=== PATIENT | female | born 1965 | race Caucasian/White ===

== ENCOUNTER 2021-06-29 15:44 | Outpatient (REF) | payer MEDICAID, SELFPAY ==
--- NOTE | ~2021-06-29 | MM_ITS ---
EXAMINATION: MM SCREENING DIGITAL BREAST TOMOSYNTHESIS, BILATERAL CLINICAL INFORMATION: Screening. Asymptomatic. The lifetime risk of breast cancer based on the Tyrer-Cuzick Model is 10.8%. COMPARISON: Mammography: May 30, 2018 and June 23, 2016 as well as study of November 03, 2008 TECHNIQUE: Digital breast tomosynthesis is performed in both the craniocaudal and mediolateral oblique views along with computer-aided detection (CAD). Synthesized 2D images are generated from the tomosynthesis. FINDINGS: There are scattered areas of fibroglandular density (ACR BI-RADS breast composition Category b). There are no significant masses, abnormal calcifications, or other abnormalities. MM/MM tomosynthesis screening BI IMPRESSION: There are no significant changes from prior study. ASSESSMENT: BI-RADS 1: Negative RECOMMENDATION: Routine annual mammography screening. This patient's information was entered into a reminder system with a target due date for their next mammogram.
== END 2021-06-29 15:45 | disposition home or self-care (01) ==
LOC: HO.MAMMO 15:44
PROVIDERS: Visit Provider Internal Medicine
DX: Z12.31 Encounter for screening mammogram for malignant neoplasm of breast (principal)
CPT/HCPCS: 77063; 77067

== ENCOUNTER → 2021-09-05 14:07 | Outpatient (BNVA) | payer MEDICAID, SELFPAY | PROVIDERS: PCP Internal Medicine; Referring Provider Internal Medicine; Visit Provider Physician Assistant | DX: Z12.11 Encounter for screening for malignant neoplasm of colon (principal); R10.13 Epigastric pain | CPT/HCPCS: 99202 ==

== ENCOUNTER 2022-01-09 07:54 | Day surgery (SDC) | payer MEDICAID, SELFPAY ==
--- NOTE | 2022-01-06 12:31 | P.CONAN_ITS ---
Documented by User: Anay Hernandez NP 01/06/22 12:32 HPI - Anesthesia Eval Consult details Narrative: 56yo F for Colonoscopy PMFSH Active Problems Active Problems: All Active Problems (Updated 01/02/22 @ 15:21 by Rema Pena, RN) Encounter for screening colonoscopy (Acute) Dyspepsia (Acute) Past Medical History Medical History (Updated 01/02/22 @ 15:21 by Rema Pena, RN) Allergic rhinitis Anxiety Depression DM type 2 (diabetes mellitus, type 2) GERD (gastroesophageal reflux disease) HTN (hypertension) Hyperlipidemia Mild intermittent asthma Vitamin D deficiency Family History Family History (Updated 09/05/21 @ 14:50 by Aimee Bailey PA-C) Unknown No family history of colorectal cancer Social History Social History (Updated 09/05/21 @ 14:51 by Aimee Bailey PA-C) Household Members: Spouse Patient Tobacco Use Status: Never used Tobacco Advance Directives: No Advance Directives Information Provided: Yes Current occupational status: unemployed Meds Allergies Allergy/AdvReac Type Severity Reaction Status Date / Time penicillin V Allergy Mild Abdominal Verified 01/02/22 15:13 Pain lisinopril Allergy Unknown cough Verified 01/02/22 15:13 Home Medications Medication Instructions Recorded Confirmed Last Taken Type albuterol sulfate 90 mcg/actuation 2 puff PO Q4-6H PRN Wheezing 09/05/21 01/02/22 Unknown History aerosol inhaler (ProAir HFA) amlodipine 5 mg tablet 5 mg PO DAILY 09/05/21 01/02/22 Unknown History atorvastatin 40 mg tablet 40 mg PO DAILY 09/05/21 01/02/22 Unknown History cholecalciferol (vitamin D3) 50 50 mcg PO DAILY 09/05/21 01/02/22 Unknown History mcg (2,000 unit) capsule diclofenac sodium 1 % topical gel 2 g topical QID 09/05/21 01/02/22 Unknown History fexofenadine 60 mg tablet 60 mg PO BID 09/05/21 01/02/22 Unknown History fluticasone propionate 50 1 spray intranasal BID 09/05/21 01/02/22 Unknown History mcg/actuation nasal spray,suspension metformin 500 mg tablet 500 mg PO BID 09/05/21 01/02/22 Unknown History omeprazole 20 mg capsule,delayed 20 mg PO DAILY 09/05/21 01/02/22 Unknown History release phenylephrine 0.25 %-mineral oil [place] TID-QID 09/05/21 Unknown History 14 %-petrolatm 74.9 % rectal ointment (Hemorrhoidal(phenyleph-min oil-petrolat)) Exam Exam Date and Time: January 06, 2022 1231 Assessment and Plan Assessment Anesthesia Assessment: Chart Reviewed Documented by User: Dulce Merlos MD 01/09/22 08:29 [facility] Past Medical History Medical History (Updated 01/02/22 @ 15:21 by Rema Pena RN) Allergic rhinitis Anxiety Depression DM type 2 (diabetes mellitus, type 2) GERD (gastroesophageal reflux disease) HTN (hypertension) Hyperlipidemia Mild intermittent asthma Vitamin D deficiency Family History Family History (Updated 09/05/21 @ 14:50 by Aimee Bailey PA-C) Unknown No family history of colorectal cancer Family history of problems with anesthesia: No Surgical History History of Problems with Anesthesia: No Social History Social History (Updated 09/05/21 @ 14:51 by Aimee Bailey PA-C) Household Members: Spouse Patient Tobacco Use Status: Never used Tobacco Advance Directives: No Advance Directives Information Provided: Yes Current occupational status: unemployed Meds Allergies Allergy/AdvReac Type Severity Reaction Status Date / Time penicillin V Allergy Mild Abdominal Verified 01/02/22 15:13 Pain lisinopril Allergy Unknown cough Verified 01/02/22 15:13 Home Medications Medication Instructions Recorded Confirmed Last Taken Type albuterol sulfate 90 mcg/actuation 2 puff PO Q4-6H PRN Wheezing 09/05/21 01/02/22 Unknown History aerosol inhaler (ProAir HFA) amlodipine 5 mg tablet 5 mg PO DAILY 09/05/21 01/02/22 Unknown History atorvastatin 40 mg tablet 40 mg PO DAILY 09/05/21 01/02/22 Unknown History cholecalciferol (vitamin D3) 50 50 mcg PO DAILY 09/05/21 01/02/22 Unknown History mcg (2,000 unit) capsule diclofenac sodium 1 % topical gel 2 g topical QID 09/05/21 01/02/22 Unknown History fexofenadine 60 mg tablet 60 mg PO BID 09/05/21 01/02/22 Unknown History fluticasone propionate 50 1 spray intranasal BID 09/05/21 01/02/22 Unknown History mcg/actuation nasal spray,suspension metformin 500 mg tablet 500 mg PO BID 09/05/21 01/02/22 Unknown History omeprazole 20 mg capsule,delayed 20 mg PO DAILY 09/05/21 01/02/22 Unknown History release phenylephrine 0.25 %-mineral oil [place] TID-QID 09/05/21 Unknown History 14 %-petrolatm 74.9 % rectal ointment (Hemorrhoidal(phenyleph-min oil-petrolat)) Exam Airway Mallampati Class: III TM Dist: >3cm Neck ROM: Full Heart: rrr Lungs: cta Assessment and Plan Assessment Anesthesia Assessment: Anesthesia Plan Discussed and Chart Reviewed Final Anesthetic Review Family History of Problems with Anesthesia: No History of Problems with Anesthesia: No NPO: Yes ASA Class: III Final Preanesthetic Review: No Changes in Pt Med Stat, Meds/Allgs Chart Reviewed and Consent Obtained/Reviewed Patient Risk: Intermediate Procedure Risk: Intermediate Anesthetic Plan Anesthetic Plan: MAC: Disposition: Standard PACU
--- NOTE | 2022-01-09 08:21 | MHC.SHP ---
Pre-Procedural Eval Section A Date of Service: 01/09/22 The patient is an INPATIENT: No The History & Physical has been completed within 30 days and I have reviewed it.: No Section B Chief Complaint: screening Details of Present Illness: Colon cancer screening, chronic constipation, intermittent rectal bleeding Relevant Family History (Specify if Yes): No Relevant Social History: None Present Medications: see Short Stay Collaborative assessment Medical History: Significant History (Hypertension, asthma, diabetes mellitus, dyspepsia) History of Previous Operations: No relevant previous surgery Allergies: Allergies Allergy/AdvReac Type Severity Reaction Status Date / Time penicillin V Allergy Mild Abdominal Verified 01/02/22 15:13 Pain lisinopril Allergy Unknown cough Verified 01/02/22 15:13 Review of Systems Sugical H&P ROS: Negative: Constitution, Cardiovascular and Respiratory and Yes, Specify: Gastrointestinal (Chronic constipation, rectal bleeding) Exam Surgical H&P Exam: Normal: Heart, Normal: Lungs, Normal: Extremities and Normal: Abdomen Plan Diagnosis/Plan: Unchanged I have reviewed the history and physical and performed a pertinent physical examination on my patient. No changes have occurred unless specified.
--- NOTE | 2022-01-09 08:28 | W.PM.OPN ---
Operative Note Operative Note Date of Service: 01/09/22 Narrative: Pre-op diagnosis: Colon cancer screening, chronic constipation, rectal bleeding Post-op diagnosis:?other (Colon polyps, diverticulosis, aphthoid ulcers in the cecum) Procedure: COLONOSCOPY TILL CECUM WITH BIOPSIES, SNARE POLYPECTOMY, SUBMUCOSAL INJECTION AND HEMOCLIP PLACEMENT Consent: Indications for the procedure and potential complications of bleeding, perforation, reaction to medications and missed diagnosis were discussed with the patient and informed consent was obtained. Instrument: Olympus PCF H 190 L variable stiffness pediatric colonoscope Monitoring: Vital signs and clinical assessment, intermittent blood pressure monitoring, continuous EKG monitoring, Pulse oximetry and Carbon Dioxide monitoring were done throughout the procedure. Colon withdrawl time was 45 minutes. Procedure: The patient was placed in the left lateral decubitis position and pre-procedure medications were administered. After a digital rectal examination of the ano-rectum, the video colonoscope was inserted into the rectum and advanced through the colon to the cecum. The colonoscope was slowly withdrawn in a retrograde panoramic fashion and the colon mucosa was carefully examined including a retroflexed view of the rectum. Findings and interventions are described below. Procedure Difficulty: Without difficulty Findings: Terminal Ileum: Distal 10 cms was examined and appeared normal Cecum: 2-3 mm aphthoid ulcers in the cecum - biopsies were obtained Ascending Colon:? Normal Transverse Colon:? Normal Descending Colon:? Normal Sigmoid Colon:? Moderate diverticulosis Rectum:? A few 2-4 mm diminutive appearing polyps - two removed by cold bx. A 3 x 2.5 cms polyp in the distal rectum 1-2 cms above the anal verge seen on retroflexed exam.? Polyp was raised with 8 cc of Orise solution and removed piece meal with a hot snare.? Some bleeding noted at polypectomy site which was controlled with 4 cc of 1:10, 000 epinephrine injection and placement of 2 hemoclips. Ano-rectum:? No hemorrhoids seen. Colon preparation: Excellent ? Impression and Post Procedure Diagnosis: Colonoscopy Findings: A few 2-4 mm diminutive appearing polyps - two removed by cold bx. A 3 x 2.5 cms polyp in the distal rectum 1-2 cms above the anal verge seen on retroflexed exam removed with a hot snare. Some bleeding noted at polypectomy site which was controlled with 4 cc of 1:10, 000 epinephrine injection and placement of 2 hemoclips. 2-3 mm aphthoid ulcers in the cecum - biopsies were obtained from the cecum, right and left colon. Moderate diverticulosis seen in the sigmoid colon Plan: Await pathology results Patient has an appointment on 01/25/22 in the GI Clinic with LISA Buckner. Repeat Colonoscopy interval based on path results - Flex sig with colon prep in 3 months to check polypectomy site in the rectum. Repeat Colonoscopy in 1 year if polyps are adenomatous. Above findings were reviewed with the patient and colon polyps and diverticulosis handouts were given in the discharge area Surgeon: Lebron Crow MD Anesthesia:?MAC (Dr Brady) Was an Materials Scientist used for this Procedure?:?Yes Materials Scientist:?Diana Blanchard Estimated blood loss (mL):?6 Pathology:?other ( A. cecal bxs, R/O IBD? B. right colon bxs, R/O IBD? C. left colon bxs, R/O IBD? D. rectal polyp? E. rectal polyp with Orise) Condition:?stable Disposition:?PACU
[2022-01-09 08:37] VITALS: BP 145/76; PULSE 68; RESP 18; TEMP 36.6; O2SAT 97; BMI 32.9
[2022-01-09 08:57] LABS: Glucose, Whole Blood 87 mg/dL (60-115)
[2022-01-09] MEDS: Lactated Ringers 1,000 ML 100 ML IVCONT (09:16)
[2022-01-09 10:17] VITALS: BP 103/65; PULSE 83; RESP 16; TEMP 36.4; O2SAT 95
[2022-01-09 10:32] VITALS: BP 104/74; PULSE 71; RESP 16; TEMP 36.1; O2SAT 97
[2022-01-09 10:47] VITALS: BP 150/87; PULSE 70; RESP 16; O2SAT 100
== END 2022-01-09 11:40 | disposition home or self-care (01) ==
PROVIDERS: PCP Internal Medicine; Visit Provider Internal Medicine Gastroenterology
PROC: 0DJD8ZZ Inspection of Lower Intestinal Tract, Via Natural or Artificial Opening Endoscopic (ICD-10-PCS; CPT 45378; principal; 2022-01-09 09:20)
DX: Z12.11 Encounter for screening for malignant neoplasm of colon (principal); D12.8 Benign neoplasm of rectum; K63.3 Ulcer of intestine; K57.30 Diverticulosis of large intestine without perforation or abscess without bleeding; K59.09 Other constipation; K21.9 Gastro-esophageal reflux disease without esophagitis; I10 Essential (primary) hypertension; E78.5 Hyperlipidemia, unspecified; J45.20 Mild intermittent asthma, uncomplicated; E11.9 Type 2 diabetes mellitus without complications; Z79.84 Long term (current) use of oral hypoglycemic drugs; Z79.51 Long term (current) use of inhaled steroids; Z79.899 Other long term (current) drug therapy; Z88.0 Allergy status to penicillin; Z88.8 Allergy status to other drugs, medicaments and biological substances
CPT/HCPCS: 45385; 45380; 45381; 82947; 88305; J0171

== ENCOUNTER → 2022-04-13 10:35 | Outpatient (BNVA) | payer MEDICAID, SELFPAY | PROVIDERS: PCP Internal Medicine; Visit Provider Physician Assistant | DX: R93.3 Abnormal findings on diagnostic imaging of other parts of digestive tract (principal); K52.9 Noninfective gastroenteritis and colitis, unspecified; D36.9 Benign neoplasm, unspecified site | CPT/HCPCS: 99212 ==

== ENCOUNTER 2022-04-14 12:10 | Day surgery (SDC) | payer MEDICAID, SELFPAY ==
--- NOTE | 2022-04-13 12:39 | HO.ANESPROP2 ---
Documented by User: Anay Hernandez NP 04/13/22 12:40 HPI - Anesthesia Eval Consult details Narrative: 57yo F for Upper Endoscopy s/p colo 12/2021 with MAC PMFSH Active Problems Active Problems: All Active Problems (Updated 04/13/22 @ 11:39 by Aimee Bailey PA-C) Tubular adenoma (Acute) Abnormal colonoscopy (Acute) Colitis (Acute) Encounter for screening colonoscopy (Acute) Dyspepsia (Acute) Past Medical History Medical History Allergic rhinitis Anxiety Depression DM type 2 (diabetes mellitus, type 2) Dyspepsia GERD (gastroesophageal reflux disease) HTN (hypertension) Hyperlipidemia Mild intermittent asthma Vitamin D deficiency Family History Family History Unknown No family history of colorectal cancer Family history of problems with anesthesia: No Surgical History Surgical History Hx of colonoscopy History of Problems with Anesthesia: No Social History Social History Household Members: Spouse Patient Tobacco Use Status: Never used Tobacco Advance Directives: No Advance Directives Information Provided: Yes Current occupational status: unemployed Meds Allergies Allergy/AdvReac Type Severity Reaction Status Date / Time latex Allergy Intermediate Itching Verified 04/13/22 11:07 penicillin V Allergy Mild Abdominal Verified 04/13/22 11:07 Pain lisinopril Allergy Unknown cough Verified 04/13/22 11:07 Home Medications Medication Instructions Recorded Confirmed Last Taken Type albuterol sulfate 90 mcg/actuation 2 puff PO Q4-6H PRN Wheezing 09/05/21 01/02/22 Unknown History aerosol inhaler (ProAir HFA) amlodipine 5 mg tablet 5 mg PO DAILY 09/05/21 01/02/22 Unknown History atorvastatin 40 mg tablet 40 mg PO DAILY 09/05/21 01/02/22 Unknown History cholecalciferol (vitamin D3) 50 50 mcg PO DAILY 09/05/21 01/02/22 Unknown History mcg (2,000 unit) capsule diclofenac sodium 1 % topical gel 2 g topical QID 09/05/21 01/02/22 Unknown History fexofenadine 60 mg tablet 60 mg PO BID 09/05/21 01/02/22 Unknown History fluticasone propionate 50 1 spray intranasal BID 09/05/21 01/02/22 Unknown History mcg/actuation nasal spray,suspension metformin 500 mg tablet 500 mg PO BID 09/05/21 01/02/22 04/13/22 09:00 History omeprazole 20 mg capsule,delayed 20 mg PO DAILY 09/05/21 01/02/22 Unknown History release phenylephrine 0.25 %-mineral oil [place] TID-QID 09/05/21 Unknown History 14 %-petrolatm 74.9 % rectal ointment (Hemorrhoidal(phenyleph-min oil-petrolat)) Exam Exam Date and Time: April 13, 2022 1239 Assessment and Plan Assessment Anesthesia Assessment: Chart Reviewed Final Anesthetic Review Family History of Problems with Anesthesia: No History of Problems with Anesthesia: No Documented by User: Dulce Merlos MD 04/14/22 13:19 [facility] Past Medical History Medical History Allergic rhinitis Anxiety Depression DM type 2 (diabetes mellitus, type 2) Dyspepsia GERD (gastroesophageal reflux disease) HTN (hypertension) Hyperlipidemia Mild intermittent asthma Vitamin D deficiency Family History Family History Unknown No family history of colorectal cancer Surgical History Surgical History Hx of colonoscopy Social History Social History Household Members: Spouse Patient Tobacco Use Status: Never used Tobacco Advance Directives: No Advance Directives Information Provided: Yes Current occupational status: unemployed Meds Allergies Allergy/AdvReac Type Severity Reaction Status Date / Time latex Allergy Intermediate Itching Verified 04/13/22 11:07 penicillin V Allergy Mild Abdominal Verified 04/13/22 11:07 Pain lisinopril Allergy Unknown cough Verified 04/13/22 11:07 Home Medications Medication Instructions Recorded Confirmed Last Taken Type albuterol sulfate 90 mcg/actuation 2 puff PO Q4-6H PRN Wheezing 09/05/21 01/02/22 Unknown History aerosol inhaler (ProAir HFA) amlodipine 5 mg tablet 5 mg PO DAILY 09/05/21 01/02/22 Unknown History atorvastatin 40 mg tablet 40 mg PO DAILY 09/05/21 01/02/22 Unknown History cholecalciferol (vitamin D3) 50 50 mcg PO DAILY 09/05/21 01/02/22 Unknown History mcg (2,000 unit) capsule diclofenac sodium 1 % topical gel 2 g topical QID 09/05/21 01/02/22 Unknown History fexofenadine 60 mg tablet 60 mg PO BID 09/05/21 01/02/22 Unknown History fluticasone propionate 50 1 spray intranasal BID 09/05/21 01/02/22 Unknown History mcg/actuation nasal spray,suspension metformin 500 mg tablet 500 mg PO BID 09/05/21 01/02/22 04/13/22 09:00 History omeprazole 20 mg capsule,delayed 20 mg PO DAILY 09/05/21 01/02/22 Unknown History release phenylephrine 0.25 %-mineral oil [place] TID-QID 09/05/21 Unknown History 14 %-petrolatm 74.9 % rectal ointment (Hemorrhoidal(phenyleph-min oil-petrolat)) Exam Airway Mallampati Class: II TM Dist: >3cm Neck ROM: Full Heart: rrr Lungs: cta Assessment and Plan Assessment Anesthesia Assessment: Anesthesia Plan Discussed and Chart Reviewed Final Anesthetic Review NPO: Yes ASA Class: II Final Preanesthetic Review: No Changes in Pt Med Stat, Meds/Allgs Chart Reviewed and Consent Obtained/Reviewed Patient Risk: Intermediate Procedure Risk: Intermediate Anesthetic Plan Anesthetic Plan: MAC: Disposition: Standard PACU
[2022-04-14 13:05] VITALS: BMI 33.5
[2022-04-14 13:15] LABS: Glucose, Whole Blood 94 mg/dL (60-115)
[2022-04-14 13:21] VITALS: BP 122/71; PULSE 70; RESP 16; TEMP 36.9; O2SAT 99
[2022-04-14] MEDS: Sodium Phosphate,Mono-Dibasic 133 ML ENEMA PR (13:28)
--- NOTE | 2022-04-14 13:56 | MHC.SHP ---
Pre-Procedural Eval Section A Date of Service: 04/14/22 The patient is an INPATIENT: No Changes since office visit: Yes Patient answered all questions; No Cold of Flu in the past 2 weeks, No New Medical Problems and No Changes in Medication The History & Physical has been completed within 30 days and I have reviewed it.: Yes Section B Chief Complaint: Noninfective gastroenteritis and colitis, unspecif Allergies: Allergies Allergy/AdvReac Type Severity Reaction Status Date / Time latex Allergy Intermediate Itching Verified 04/13/22 11:07 penicillin V Allergy Mild Abdominal Verified 04/13/22 11:07 Pain lisinopril Allergy Unknown cough Verified 04/13/22 11:07 Plan I have reviewed the history and physical and performed a pertinent physical examination on my patient. No changes have occurred unless specified.
--- NOTE | 2022-04-14 13:57 | P.OP_ITS ---
Operative Note Operative Note Date of Service: 04/14/22 Narrative: Pre-op diagnosis: Follow-up of colon polyps Post-op diagnosis:?other (Colon polyps, diverticulosis) Procedure: FLEXIBLE SIGMOIDOSCOPY TILL 20 CM WITH BIOPSIES Consent: Indications for the procedure and potential complications of bleeding, perforation, reaction to medications and missed diagnosis were discussed with the patient and informed consent was obtained. Instrument: Olympus PCF H 190 L variable stiffness pediatric colonoscope Monitoring: Vital signs and clinical assessment, intermittent blood pressure monitoring, continuous EKG monitoring, Pulse oximetry and Carbon Dioxide monitoring were done throughout the procedure. Procedure: The patient was placed in the left lateral decubitis position and pre-procedure medications were administered. After a digital rectal examination of the ano-rectum, the video colonoscope was inserted into the rectum and advanced through the colon to 20 cms. The colonoscope was slowly withdrawn in a retrograde panoramic fashion and the colon mucosa was carefully examined including a retroflexed view of the rectum. Findings and interventions are described below. Procedure Difficulty: Without difficulty Findings: Sigmoid Colon:? Moderate diverticulosis Rectum:? A few 2-4 mm diminutive appearing polyps - one removed with a cold bx. Polypectomy site examined in the distal rectum and 10 -12 mm of ? adenomatous tissue at the margin - removed with a cold bx Ano-rectum:? Normal Colon preparation:? Good? Impression and Post Procedure Diagnosis: Flexible sigmoidoscopy Findings: A few 2-4 mm diminutive appearing polyps - one removed with a cold bx. Polypectomy site examined in the distal rectum and 10 -12 mm of ? adenomatous tissue at the margin - removed with a cold bx Moderate diverticulosis seen in the sigmoid colon Plan: Await pathology results Patient has an appointment on 05/04/22 in the GI Clinic with LISA Buckner ? . Repeat Colonoscopy interval based on path results - in 3-5 years if polyps are adenomatous and 10 years if polyps are hyperplastic. Above findings were reviewed with the patient and colon polyps handout was given in the discharge area BIOPSIES SHOWED: A.? Colon, rectal polyp:? Hyperplastic polyp.? B.? Colon, polypectomy site, biopsies:? Colonic mucosa with mild hyperplastic changes and squamo-transitional mucosa; negative for adenomatous dysplasia. Surgeon: Lebron Crow MD Anesthesia:?MAC Was an Safe And Vault Installer used for this Procedure?:?No Safe And Vault Installer:?Diana Blanchard Estimated blood loss (mL):?0 Pathology:?other (A. rectal polyp? B. polypectomy site bxs, R/O colon polyp) Condition:?stable Disposition:?PACU
[2022-04-14] MEDS: Lactated Ringers 1,000 ML 100 ML IVCONT (14:00)
[2022-04-14 14:26] VITALS: BP 102/61; PULSE 74; RESP 15; TEMP 36.6; O2SAT 99
[2022-04-14 14:41] VITALS: BP 117/71; PULSE 71; RESP 16; TEMP 36.6; O2SAT 98
== END 2022-04-14 15:07 | disposition home or self-care (01) ==
PROVIDERS: PCP Internal Medicine; Visit Provider Internal Medicine Gastroenterology
PROC: 0DJD8ZZ Inspection of Lower Intestinal Tract, Via Natural or Artificial Opening Endoscopic (ICD-10-PCS; CPT 45330; principal; 2022-04-14 14:10)
DX: K62.1 Rectal polyp (principal); K57.30 Diverticulosis of large intestine without perforation or abscess without bleeding; K52.9 Noninfective gastroenteritis and colitis, unspecified; I10 Essential (primary) hypertension; J45.20 Mild intermittent asthma, uncomplicated; E11.9 Type 2 diabetes mellitus without complications; Z79.84 Long term (current) use of oral hypoglycemic drugs; Z79.899 Other long term (current) drug therapy; Z88.0 Allergy status to penicillin; Z88.8 Allergy status to other drugs, medicaments and biological substances; Z91.040 Latex allergy status; Z87.891 Personal history of nicotine dependence
CPT/HCPCS: 45331; 82947; 88305

== ENCOUNTER → 2022-05-04 13:10 | Outpatient (BNVA) | payer MEDICAID, SELFPAY | PROVIDERS: PCP Internal Medicine; Visit Provider Physician Assistant | DX: D36.9 Benign neoplasm, unspecified site (principal) | CPT/HCPCS: 99212 ==

== ENCOUNTER 2022-07-05 15:06 | Outpatient (REF) | payer MEDICAID, SELFPAY ==
--- NOTE | ~2022-07-05 | MM_ITS ---
EXAMINATION: MM SCREENING DIGITAL BREAST TOMOSYNTHESIS, BILATERAL CLINICAL INFORMATION: Screening. Asymptomatic. The lifetime risk of breast cancer based on the Tyrer-Cuzick Model is 10%. COMPARISON: Mammography: 06/29/2021, 05/30/2018, 06/23/2016 TECHNIQUE: Digital breast tomosynthesis is performed in both the craniocaudal and mediolateral oblique views along with computer-aided detection (CAD). Synthesized 2D images are generated from the tomosynthesis. Additional bilateral MLO views are provided. FINDINGS: There are scattered areas of fibroglandular density (ACR BI-RADS breast composition Category b). There are no significant masses, abnormal calcifications, or other abnormalities. Parenchymal pattern is similar to prior studies. There is no developing density or architectural abnormality. The axilla and skin contours are unremarkable. No significant changes. MM/MM tomosynthesis screening BI IMPRESSION: No mammographic evidence of malignancy. ASSESSMENT: BI-RADS 1: Negative RECOMMENDATION: Routine annual mammography screening. This patient's information was entered into a reminder system with a target due date for their next mammogram.
== END 2022-07-05 15:07 | disposition home or self-care (01) ==
LOC: HO.MAMMO 15:06
PROVIDERS: PCP Internal Medicine; Visit Provider Internal Medicine
DX: Z12.31 Encounter for screening mammogram for malignant neoplasm of breast (principal)
CPT/HCPCS: 77063; 77067

== ENCOUNTER 2022-09-04 11:32 | Outpatient (REF) | payer MEDICAID, SELFPAY ==
--- NOTE | ~2022-09-04 | XR_ITS ---
EXAMINATION: XR KNEE, RIGHT CLINICAL INFORMATION: Chronic pain of knee COMPARISON: 04/16/2020 TECHNIQUE: Four views of the right knee. FINDINGS: Small joint effusion is present. Tricompartmental osteophyte formation. Marginal osteophytes have slightly increased in size at patellofemoral and tibiofemoral compartments. At the medial tibiofemoral compartment, there is worsening loss of the articular cartilage space with subarticular sclerosis and osteophytosis. Genu varus deformity. No suspicious bone lesion. No fracture or subluxation. XR/XR knee RT 4V IMPRESSION: Interval worsening of tricompartmental osteoarthritis compared to 04/16/2020, particularly at the medial compartment where there is near-complete loss of the joint space and genu varus deformity.
== END 2022-09-04 11:33 | disposition home or self-care (01) ==
LOC: HO.XRAY 11:32
PROVIDERS: PCP Family Medicine; Visit Provider Family Medicine
DX: M25.561 Pain in right knee (principal); M25.562 Pain in left knee; G89.29 Other chronic pain
CPT/HCPCS: 73564

== ENCOUNTER 2022-09-15 12:21 | Outpatient (REF) | payer MEDICAID, SELFPAY ==
--- NOTE | ~2022-09-15 | XR_ITS ---
EXAMINATION: XR KNEE, LEFT CLINICAL INFORMATION: Pain COMPARISON: None TECHNIQUE: Four views of the left knee. FINDINGS: No acute fracture or dislocation. There is moderate osteoarthritis of the left knee joint with severe narrowing of the medial tibiofemoral compartment and tiny medial and patellofemoral compartment osteophytes. Genu varus deformity is noted. XR/XR knee LT 4V IMPRESSION: Moderate osteoarthritis of the left knee joint with severe narrowing of the medial tibiofemoral compartment and genu varus deformity.
== END 2022-09-15 12:22 | disposition home or self-care (01) ==
LOC: HO.XRAY 12:21
PROVIDERS: PCP Family Medicine; Visit Provider Family Medicine
DX: M25.562 Pain in left knee (principal); G89.29 Other chronic pain
CPT/HCPCS: 73564

== ENCOUNTER 2022-09-22 07:10 | Outpatient (REF) | payer MEDICAID, SELFPAY | END 2022-09-22 07:11 | disposition home or self-care (01) | LOC: HO.CT 07:10 | PROVIDERS: PCP Family Medicine; Visit Provider Nurse Practitioner | DX: Z13.89 Encounter for screening for other disorder (principal) ==

== ENCOUNTER 2022-09-29 07:50 | Outpatient (REF) | payer MEDICAID, SELFPAY ==
--- NOTE | ~2022-09-29 | XR_ITS ---
EXAMINATION: XR KNEE AP STANDING CLINICAL INFORMATION: Pain right knee COMPARISON: Right knee radiographs, 09/04/2022, left knee radiographs 09/15/2022 TECHNIQUE: AP bilateral standing view of the knees was obtained. FINDINGS: Bilateral degenerative changes of the medial compartments, right greater than left. No acute osseous abnormalities. Soft tissues are unremarkable. XR/XR knee standing BI IMPRESSION: Degenerative changes of the medial compartments, right greater than left.
== END 2022-09-29 07:51 | disposition home or self-care (01) ==
LOC: HO.HOSX 07:50
PROVIDERS: Visit Provider Physician Assistant
DX: M17.0 Bilateral primary osteoarthritis of knee (principal); Z79.899 Other long term (current) drug therapy
CPT/HCPCS: 20610; 73565; 99202; J1020

== ENCOUNTER 2022-10-18 10:00 | Outpatient (RCR) | payer MEDICAID, SELFPAY | END 2023-01-25 13:27 | disposition home or self-care (01) | LOC: HO.PT 10:00 | PROVIDERS: PCP Family Medicine; Visit Provider Family Medicine | DX: M25.561 Pain in right knee (principal); M25.562 Pain in left knee | CPT/HCPCS: 97110; 97161; 97530 ==

== ENCOUNTER → 2022-11-20 10:30 | Outpatient (BNVA) | payer MEDICAID, SELFPAY | PROVIDERS: PCP Family Medicine; Visit Provider Physician Assistant | DX: M17.0 Bilateral primary osteoarthritis of knee (principal) | CPT/HCPCS: 20610; 99212; J1020 ==

== ENCOUNTER → 2022-11-30 08:21 | Outpatient (BNVA) | payer MEDICAID, SELFPAY | PROVIDERS: PCP Family Medicine; Visit Provider Orthopaedic Surgery | DX: M17.0 Bilateral primary osteoarthritis of knee (principal); E11.9 Type 2 diabetes mellitus without complications | CPT/HCPCS: 99212 ==

== ENCOUNTER 2023-02-05 08:33 | Outpatient (REF) | payer MEDICAID, SELFPAY ==
[2023-02-05 12:29] LABS: Alanine Aminotransferase 35 U/L (0-31); Albumin Level 4.2 g/dL (3.5-5.0); Alkaline Phosphatase 134 U/L (39-117); Anion Gap 15 (12-20); Aspartate Amino Transferase 21 U/L (5-31); Bilirubin Total 0.7 mg/dL (0.0-1.0); Blood Urea Nitrogen 15 mg/dL (9-16); Carbon Dioxide 23 mmol/L (22-29); Chloride 107 mmol/L (96-108); Cholesterol 159 mg/dL; Estimated Glomerular Filt Rate > 60; Glucose Fasting 125 mg/dL (60-99); HDL Cholesterol 46 mg/dL; LDL Cholesterol Calculated 76 mg/dl; Potassium 3.8 mmol/L (3.3-5.1); Sodium 141 mmol/L (135-145); Total Protein 7.1 g/dL (6.5-8.0); Triglycerides 186 mg/dL
[2023-02-05 12:42] LABS: ~HepC Num1 0.07 S/CO (0.00-0.79); ~Hepatitis C Antibody Nonreactive (Nonreactive)
[2023-02-05 12:46] LABS: Syphilis Screen Nonreactive (Nonreactive)
[2023-02-08 15:38] LABS: HIV RNA PCR Qn Copies NOT DETECTED copies/mL (NOT DETECTED); HIV RNA PCR Qn Log Copies NOT DETECTED (NOT DETECTED)
== END 2023-02-05 08:34 | disposition home or self-care (01) ==
LOC: HO.HHCL 08:33
PROVIDERS: Visit Provider Registered Nurse
DX: Z00.00 Encounter for general adult medical examination without abnormal findings (principal); Z11.4 Encounter for screening for human immunodeficiency virus [HIV]; E11.9 Type 2 diabetes mellitus without complications
CPT/HCPCS: 36415; 80053; 80061; 86780; 86803; 87536

== ENCOUNTER 2023-02-14 08:51 | Outpatient (REF) | payer MEDICAID, SELFPAY ==
[2023-02-14 11:25] LABS: MANUAL DIFF FLAG NO
[2023-02-14 11:35] LABS: Basophils Percent Auto 0.6 % (0-2); Eosinophils Percent Auto 0.6 % (0-4); Hematocrit 45.5 % (37.0-47.0); Hemoglobin 14.7 g/dl (12.0-16.0); Imm Gran Abs Auto 0.01 X10*3/uL (0.00-0.03); Imm Gran Pct Auto 0.2 % (0.0-0.4); Lymphocytes Absolute Auto 1.8 X10*3/uL (1.2-4.9); Lymphocytes Percent Auto 27.9 % (20-40); Mean Corpuscular HGB Conc 32.3 g/dl (31.0-35.0); Mean Corpuscular Hemoglobin 28.1 pg (27.0-33.0); Mean Platelet Volume 12.8 fL (9.4-12.3); Monocytes Absolute Auto 0.3 X10*3/uL (0.1-1.2); Monocytes Percent Auto 5.2 % (2-11); Neutrophils Absolute Auto 4.2 x10*3/uL (2.0-8.3); Neutrophils Percent Auto 65.5 % (45-73); Platelet Count 204 X10*3/uL (160-400); Red Blood Count 5.23 X10*6/uL (4.20-5.50); Red Cell Distribution Width 13.7 % (11.0-16.0); White Blood Count 6.4 X10*3/uL (4.8-10.8)
[2023-02-14 12:15] LABS: HBS Num1 11.58 mIU/mL (0-7.99); HBsAGNum1 0.33 S/CO (0.00-0.99); Hepatitis A Antibody IgM 0.32 Index (0-0.79); Hepatitis B Core Antibody Nonreactive (Nonreactive); Hepatitis B Surface Antigen Negative (Negative); ~HepC Num1 0.07 S/CO (0.00-0.79); ~Hepatitis A Antibody IgM Nonreactive (Nonreactive); ~Hepatitis C Antibody Nonreactive (Nonreactive)
[2023-02-14 12:19] LABS: Alanine Aminotransferase 32 U/L (0-31); Albumin Level 4.3 g/dL (3.5-5.0); Alkaline Phosphatase 135 U/L (39-117); Aspartate Amino Transferase 17 U/L (5-31); Bilirubin Direct 0.1 mg/dL (0.0-0.5); Bilirubin Total 0.5 mg/dL (0.0-1.0); Gamma Glutamyl Transpeptidase 68 U/L (7-33); Total Protein 7.1 g/dL (6.5-8.0)
[2023-02-14 13:27] LABS: HBS Num2 12.34 mIU/mL (0-7.99)
[2023-02-14 13:28] LABS: ~Hepatitis B Surface Antibody GRAYZONE (Nonreactive)
== END 2023-02-14 08:52 | disposition home or self-care (01) ==
LOC: HO.HHCL 08:51
PROVIDERS: Visit Provider Registered Nurse
DX: R74.8 Abnormal levels of other serum enzymes (principal)
CPT/HCPCS: 36415; 80076; 82977; 85025; 86704; 86706; 86709; 86803; 87340

== ENCOUNTER 2023-02-19 09:52 | Outpatient (AMB) | payer MEDICAID, SELFPAY ==
--- NOTE | 2023-02-19 10:07 | A.OFFVIS_ITS ---
Intake Vital Signs 02/19/23 10:08 Height 5 ft 3 in Weight 191 lb BMI 33.8 Intake Visit Reasons: OV- B/L Euflexxa gel injection #1 Intake Note: Mary is a 58 year old female who presnets today for bilateral knee euflexxa injection #1 Allergies latex Allergy (Intermediate, Verified 11/30/22 08:34) Itching penicillin V Allergy (Mild, Verified 11/20/22 10:38) Abdominal Pain lisinopril Allergy (Unknown, Verified 11/20/22 10:38) cough HPI OV- B/L Euflexxa gel injection #1 HPI Details Mary is a 58 year old woman with bilateral knee OA, who presents for her first bilateral Euflexxa injection. She denies any changes in her symptoms or medical history. [facility] Medical History Allergic rhinitis Anxiety Depression DM type 2 (diabetes mellitus, type 2) Dyspepsia GERD (gastroesophageal reflux disease) HTN (hypertension) Hyperlipidemia Mild intermittent asthma Vitamin D deficiency Surgical History History of esophagogastroduodenoscopy (EGD) Hx of colonoscopy Family History Unknown No family history of colorectal cancer Social History Household Members: Spouse Patient Tobacco Use Status: Former Tobacco user Tobacco use type: Cigarette Years Smoked: 3 Current occupational status: unemployed Review of Systems Const All systems reviewed & are unremarkable except as noted in HPI and below Physical Exam Vital Signs: BMI result Body Mass Index 33.8 Const General: no acute distress and alert Orientation/consciousness: patient oriented x3 Neuro General: patient oriented x3 Extrem Other: Bilateral Knees: Skin C/D/I No effusion Psych Appearance: grossly normal Affect: normal affect Attitude: cooperative Office Procedures Joint Injection/Drain Joint Injection/Drain Details: Injected Euflexxa. Site was prepped using aseptic technique. Patient tolerated the procedure well. Primary Site: right knee Secondary Site: left knee Approach Used: anterolateral Coding - Large joint - Glenohumeral/Tronchanteric Bursa/Intraarticular Procedure code (CPT) selection complete Results Reviewed Results Reviewed: 02/19/23 09:55 Hyaluronate Sodium [Euflexxa] 20 mg INTRAARTIC .STK-MED ONE Assessment & Plan Assessment & Plan (1) Bilateral primary osteoarthritis of knee: Code(s): M17.0 - Bilateral primary osteoarthritis of knee Plan: This is a 57 year old woman with bilateral knee OA R>L. She has pain with daily activity, worse with ambulation. I injected her bilateral knees with Euflexxa today, which she tolerated well. She will follow up in 1 week for her second Euflexxa injections. I recommend she use NSAIDs. Plan Scribed for Brandt North MD by Dax Bustillos, medical collections specialist, on 02/19/23 at 10:30 AM, EST. Coding Level of Care Code Est Pt Level 2 (90280) Diagnoses Bilateral primary osteoarthritis of knee M17.0 CPT Codes Coding - 75743 Large joint: 04929 - Large joint ([id number]) Coding - Joint 7: 15735 - Glenohumeral/Tronchanteric Bursa/Intraarticular ([id number])
[2023-02-19 10:08] VITALS: BMI 33.8
== END 2023-02-19 10:31 | disposition home or self-care (01) ==
PROVIDERS: Visit Provider Orthopaedic Surgery
DX: M17.0 Bilateral primary osteoarthritis of knee (principal)
CPT/HCPCS: 99213

== ENCOUNTER → 2023-02-19 09:52 | Outpatient (BNVA) | payer MEDICAID, SELFPAY | PROVIDERS: Visit Provider Orthopaedic Surgery | DX: M17.0 Bilateral primary osteoarthritis of knee (principal) | CPT/HCPCS: 20610; J7323 ==

== ENCOUNTER 2023-02-26 09:37 | Outpatient (AMB) | payer MEDICAID, SELFPAY ==
[2023-02-26 09:43] VITALS: BMI 33.8
--- NOTE | 2023-02-26 09:43 | MHC.OFFVIS ---
Intake Vital Signs 02/26/23 09:43 Height 5 ft 3 in Weight 191 lb BMI 33.8 Intake Visit Reasons: OV- B/L Euflexxa gel injection #2 Intake Note: Mary is a 58 year old female who presents today for Bilateral knee Euflexxa #2 Allergies latex Allergy (Intermediate, Verified 11/30/22 08:34) Itching penicillin V Allergy (Mild, Verified 11/20/22 10:38) Abdominal Pain lisinopril Allergy (Unknown, Verified 11/20/22 10:38) cough HPI OV- B/L Euflexxa gel injection #2 HPI Details Mary is a 58 year old woman with bilateral knee OA, who presents for her second bilateral Euflexxa injection. She denies any changes in her symptoms or medical history.? ? PFSH Medical History Allergic rhinitis Anxiety Depression DM type 2 (diabetes mellitus, type 2) Dyspepsia GERD (gastroesophageal reflux disease) HTN (hypertension) Hyperlipidemia Mild intermittent asthma Vitamin D deficiency Surgical History History of esophagogastroduodenoscopy (EGD) Hx of colonoscopy Family History Unknown No family history of colorectal cancer Social History Household Members: Spouse Patient Tobacco Use Status: Former Tobacco user Tobacco use type: Cigarette Years Smoked: 3 Current occupational status: unemployed Review of Systems Const All systems reviewed & are unremarkable except as noted in HPI and below Physical Exam Vital Signs: BMI result Body Mass Index 33.8 Const General: no acute distress and alert Orientation/consciousness: patient oriented x3 Neuro General: patient oriented x3 Extrem Other: Bilateral Knees: Skin C/D/I No effusion Psych Appearance: grossly normal Affect: normal affect Attitude: cooperative Office Procedures Joint Injection/Drain Joint Injection/Drain Details: Injected Euflexxa. Site was prepped using aseptic technique. Patient tolerated the procedure well. Primary Site: right knee Secondary Site: left knee Approach Used: anterolateral Coding - Large joint - Glenohumeral/Tronchanteric Bursa/Intraarticular Procedure code (CPT) selection complete Results Reviewed Results Reviewed: 02/26/23 09:40 Hyaluronate Sodium [Euflexxa] 20 mg INTRAARTIC .STK-MED ONE Assessment & Plan Assessment & Plan (1) Bilateral primary osteoarthritis of knee: Code(s): M17.0 - Bilateral primary osteoarthritis of knee Plan: This is a 57 year old woman with bilateral knee OA R>L. She has pain with daily activity, worse with ambulation. I injected her bilateral knees with her second Euflexxa today, which she tolerated well. She will follow up in 1 week for her final Euflexxa injections. I recommend she use NSAIDs. Plan Scribed for Brandt North MD by Dax Bustillos, emergency medical services coordinator, on 02/26/23 at 9:55 AM, EST. Coding Level of Care Code Est Pt Level 2 (24127) Diagnoses Bilateral primary osteoarthritis of knee M17.0 CPT Codes Coding - 42328 Large joint: 78255 - Large joint ([id number]) Coding - Joint 7: 42900 - Glenohumeral/Tronchanteric Bursa/Intraarticular ([id number])
== END 2023-02-26 10:04 | disposition home or self-care (01) ==
PROVIDERS: Visit Provider Orthopaedic Surgery
DX: M17.0 Bilateral primary osteoarthritis of knee (principal)
CPT/HCPCS: 20610

== ENCOUNTER → 2023-02-26 09:37 | Outpatient (BNVA) | payer MEDICAID, SELFPAY | PROVIDERS: Visit Provider Orthopaedic Surgery | DX: M17.0 Bilateral primary osteoarthritis of knee (principal); Z79.899 Other long term (current) drug therapy | CPT/HCPCS: 20610; J7323 ==

== ENCOUNTER 2023-03-05 09:48 | Outpatient (AMB) | payer MEDICAID, SELFPAY ==
--- NOTE | 2023-03-05 10:16 | MHC.OFFVIS ---
Intake Vital Signs 03/05/23 10:20 Height 5 ft 3 in Weight 191 lb BMI 33.8 Intake Visit Reasons: OV- B/L Euflexxa gel injection #3 Intake Note: Mary is a 58 year old female who presents today for Bilateral knee Euflexxa #3. Allergies latex Allergy (Intermediate, Verified 03/05/23 10:20) Itching penicillin V Allergy (Mild, Verified 03/05/23 10:20) Abdominal Pain lisinopril Allergy (Unknown, Verified 03/05/23 10:20) cough HPI OV- B/L Euflexxa gel injection #3 HPI Details 58-year-old female, who is Bahamian speaking, presents in the office today for a follow up of bilateral knee pain.She presents for her 3rd Euflexxa injection in a series of 3 in the bilateral knees. [facility] Medical History Allergic rhinitis Anxiety Depression DM type 2 (diabetes mellitus, type 2) Dyspepsia GERD (gastroesophageal reflux disease) HTN (hypertension) Hyperlipidemia Mild intermittent asthma Vitamin D deficiency Surgical History History of esophagogastroduodenoscopy (EGD) Hx of colonoscopy Family History Unknown No family history of colorectal cancer Social History Household Members: Spouse Patient Tobacco Use Status: Former Tobacco user Tobacco use type: Cigarette Years Smoked: 3 Current occupational status: unemployed Review of Systems Const All systems reviewed & are unremarkable except as noted in HPI and below Physical Exam Vital Signs: BMI result Body Mass Index 33.8 Const General: no acute distress and alert Orientation/consciousness: patient oriented x3 Neuro General: patient oriented x3 Extrem Other: Bilateral Knees: Skin C/D/I No effusion Psych Appearance: grossly normal Affect: normal affect Attitude: cooperative Office Procedures Joint Injection/Drain Joint Injection/Drain Primary Site: right knee Secondary Site: left knee Prep: site was prepped using aseptic technique, ethochloride spray was applied and injection warnings given Injected: in the joint (Euflexxa #3) Approach Used: anterolateral Procedure: The patient tolerated the procedure well, but had some pain with the injection and there was some relief with the local anesthesia Coding 15569 - Large joint Procedure code (CPT) selection complete Results Reviewed Results Reviewed: 03/05/23 10:14 Hyaluronate Sodium [Euflexxa] 20 mg INTRAARTIC .STK-MED ONE Assessment & Plan Assessment & Plan (1) Bilateral primary osteoarthritis of knee: Code(s): M17.0 - Bilateral primary osteoarthritis of knee Plan Ms. Parker Lombardo is a 58-year-old female, who is Bahamian speaking, presents in the office today for a follow up of bilateral knee pain.She presents for her 3rd Euflexxa injection in a series of 3 in the bilateral knees. The patient was injection with her 3rd Euflexxa injection in the bilateral knees. The patient was explained the risk, benefits, and alternatives to receiving this injection. After receiving consent for the injection, the patient had the procedure done while in office today. The patient tolerated the procedure well with no complications. Follow up will be PRN, or sooner if needed. Patient Instructions: Scribed for Eulalia Fonseca PA-C by Diana Mcgee medical laboratory manager, on 03/05/2023 at 9:56 am, EST. Coding Level of Care Code Procedure Only Diagnoses Bilateral primary osteoarthritis of knee M17.0 CPT Codes Coding - 73597 Large joint: 85529 - Large joint ([id number])
[2023-03-05 10:20] VITALS: BMI 33.8
== END 2023-03-05 10:45 | disposition home or self-care (01) ==
PROVIDERS: Visit Provider Physician Assistant
DX: M17.0 Bilateral primary osteoarthritis of knee (principal)
CPT/HCPCS: 20610

== ENCOUNTER → 2023-03-05 09:48 | Outpatient (BNVA) | payer MEDICAID, SELFPAY | PROVIDERS: Visit Provider Physician Assistant | DX: M17.0 Bilateral primary osteoarthritis of knee (principal); E55.9 Vitamin D deficiency, unspecified | CPT/HCPCS: 20610; J7323 ==

== ENCOUNTER 2023-03-13 07:32 | Outpatient (REF) | payer MEDICAID, SELFPAY ==
--- NOTE | ~2023-03-13 | US_ITS ---
EXAMINATION: US ABDOMEN LIMITED CLINICAL INFORMATION: Elevated liver function tests. COMPARISON: None available. TECHNIQUE: Real-time imaging of the right upper quadrant abdominal viscera. FINDINGS: PANCREAS: Normal. LIVER: The liver is normal in size, with a longitudinal span of 16.6 cm. The liver contour is normal. There is diffuse increased liver parenchymal echogenicity. No focal hepatic lesion. There is no intrahepatic biliary duct dilatation seen. GALLBLADDER: Normal. The gallbladder is physiologically distended without evidence of stones, sludge, polyps, wall thickening or pericholecystic fluid. COMMON BILE DUCT: Borderline enlarged, with a maximal caliber of 7 mm. RIGHT KIDNEY: There are scattered echogenic foci, which do not meet formal ultrasound criteria for calculi. No hydronephrosis. No renal calculi or focal parenchymal lesions. The kidney measures 9.4 cm in maximum dimension. FREE FLUID: None. US/US abdomen limited IMPRESSION: 1. There is generalized increase in hepatic echotexture, consistent with fatty infiltration or hepatocellular disease. Please correlate clinically. No focal hepatic mass or intrahepatic biliary dilatation is seen. 2. There is borderline dilatation of the common bile duct, without biliary calculus pancreatic mass or intrahepatic biliary ductal dilatation noted. If of continued clinical concern, this could be further evaluated with cross-sectional imaging of the abdomen or a nuclear HIDA scan.
== END 2023-03-13 07:33 | disposition home or self-care (01) ==
LOC: HO.US 07:32
PROVIDERS: Visit Provider Registered Nurse
DX: R74.8 Abnormal levels of other serum enzymes (principal)
CPT/HCPCS: 76705

== ENCOUNTER 2023-05-25 17:34 | Outpatient (REF) | payer MEDICAID, SELFPAY ==
[2023-05-25 18:02] LABS: Appearance Urine Turbid; Color Urine Yellow; Glucose Urine UA Negative (Negative); Leukocyte Esterase Urine Negative (Negative); Nitrite Urine Negative (Negative); PH 5.5 (5.0-9.0); Specific Gravity - Urine >= 1.030 (1.005-1.025); Urine Blood Negative (Negative); Urine Ketones Negative (Negative); Urine Protein Negative (Neg-Trace)
[2023-05-25 19:47] LABS: Bacteria Urine None Seen (None Seen); Hyaline Casts Urine 0-2 /LPF (0-2); RBC Urine 0-2 /HPF (0-2); Squamous Epithelial Cell Urine 0-2 /HPF (0-2); WBC Urine 0-5 /HPF (0-5)
[2023-05-31 20:34] LABS: HPV mRNA E6/E7 rflx Not Detected (Not Detected)
== END 2023-05-25 17:35 | disposition home or self-care (01) ==
LOC: HO.LNP 17:34
PROVIDERS: Visit Provider Registered Nurse
DX: Z01.419 Encounter for gynecological examination (general) (routine) without abnormal findings (principal); N39.41 Urge incontinence
CPT/HCPCS: 81001; 81513; 87624; 88142

== ENCOUNTER 2023-07-11 14:38 | Outpatient (REF) | payer MEDICAID, SELFPAY | END 2023-07-11 14:39 | disposition home or self-care (01) | LOC: HO.MAMMO 14:38 | PROVIDERS: Visit Provider Internal Medicine | DX: Z12.31 Encounter for screening mammogram for malignant neoplasm of breast (principal) | CPT/HCPCS: 77063; 77067 ==

== ENCOUNTER → 2023-07-11 15:00 | Outpatient (BNV) | payer MEDICAID, SELFPAY | PROVIDERS: Visit Provider Radiology Diagnostic Radiology | DX: Z12.31 Encounter for screening mammogram for malignant neoplasm of breast (principal) | CPT/HCPCS: 77063; 77067 ==

== ENCOUNTER 2024-05-15 01:47 | Emergency (ER) | payer MEDICAID, SELFPAY ==
--- NOTE | ~2024-05-15 | CT_ITS ---
EXAMINATION: CT ABDOMEN AND PELVIS WITH CONTRAST CLINICAL INFORMATION: Pain. COMPARISON: None available. TECHNIQUE: Multidetector volumetric images were obtained from the superior aspect of the liver through the pubic symphysis following administration 85 mL of Omnipaque 350 intravenous contrast. Sagittal and coronal reformatted images were obtained on the technologist's workstation. Oral contrast: No This CT examination was performed using dose optimization techniques as appropriate, variously including the following: *Automated exposure control *Adjustment of mA and/or kV according to patient size (this includes techniques or standardized protocols for targeted exams where dose is matched to indication/reason for exam; i.e. extremities or head) *Use of iterative reconstruction technique DLP: 711 mGy-cm FINDINGS: LUNG BASES: The visualized lung bases are unremarkable. LIVER, GALLBLADDER, AND BILIARY TREE: The liver is normal in size, shape, and attenuation. No focal hepatic lesion or biliary ductal dilatation is present. The gallbladder is unremarkable with no evidence of radiopaque gallstones, gallbladder wall thickening, or obvious pericholecystic inflammatory changes. PANCREAS: Unremarkable. SPLEEN: Unremarkable. ADRENAL GLANDS: Unremarkable. KIDNEYS AND URETERS: The kidneys are normal in size, shape, and attenuation. There is right perinephric stranding. There is mild to moderate right hydronephrosis and hydroureter extending into the pelvis to the level of a 3 mm distal right ureteric calculus BLADDER: Unremarkable. GASTROINTESTINAL TRACT: There are diverticula of the descending and sigmoid colon without diverticulitis. The appendix is not seen. ABDOMINAL WALL: No significant hernia is appreciated. LYMPH NODES: Normal. VASCULAR: There is mild atherosclerotic plaque of the abdominal aorta. PELVIC VISCERA: Multiple uterine fibroids are noted measuring up to 2.6 cm OSSEOUS STRUCTURES: Unremarkable. CT/CT abdomen pelvis w IV con IMPRESSION: Mild to moderate right hydronephrosis and hydroureter extending into the pelvis to the level of a 3 mm distal right ureteric calculus. Diverticulosis without diverticulitis. Fibroid uterus. Fleischner guidelines were followed. Electronically signed by: Lam King MD 05/15/2024 05:30 AM EDT
[2024-05-15 01:56] VITALS: BP 149/75; PULSE 88; RESP 18; TEMP 37.1; O2SAT 96; BMI 34.3
--- NOTE | 2024-05-15 02:35 | ED_ITS ---
HPI - Abdominal Pain General Chief Complaint: Abdominal Pain Stated Complaint: Abd Pain Time Seen by Provider: 05/15/24 02:35 Source: patient Mode of arrival: ambulatory Limitations: no limitations History of Present Illness ED Provider: jose luis HPI narrative: Patient complaining of pain for last 1 week localized mostly in the right LQ of the abdomen with nausea vomiting patient's ultrasound 03/14 which showed hepatic steatosis patient feels hungry no fever no chills no urinary symptoms pain got worse tonight no history of kidney stone Related Data Home Medications ?Medication ?Instructions ?Recorded ?Confirmed amlodipine 5 mg tablet 5 mg PO DAILY 09/05/21 09/29/22 atorvastatin 40 mg tablet 40 mg PO DAILY 09/05/21 09/29/22 cholecalciferol (vitamin D3) 50 50 mcg PO DAILY 09/05/21 09/29/22 mcg (2,000 unit) capsule diclofenac sodium 1 % topical gel 2 g topical QID 09/05/21 09/29/22 fexofenadine 60 mg tablet 60 mg PO BID 09/05/21 09/29/22 fluticasone propionate 50 1 spray intranasal BID 09/05/21 09/29/22 mcg/actuation nasal spray,suspension metformin 500 mg tablet 500 mg PO BID 09/05/21 09/29/22 omeprazole 20 mg capsule,delayed 20 mg PO DAILY 09/05/21 01/02/22 release Previous Rx's ?Medication ?Instructions ?Recorded ibuprofen 600 mg tablet 600 mg PO Q6H PRN fever or pain 05/15/24 #30 tabs oxycodone 5 mg tablet 5 mg PO Q6H PRN pain #20 tabs 05/15/24 tamsulosin 0.4 mg capsule (Flomax) 0.4 mg PO BEDTIME #7 caps 05/15/24 Allergies Allergy/AdvReac Type Severity Reaction Status Date / Time latex Allergy Intermediate Itching Verified 05/15/24 01:57 penicillin V Allergy Mild Abdominal Verified 05/15/24 01:57 Pain lisinopril Allergy Unknown cough Verified 05/15/24 01:57 Review of Systems Review of Systems Yes all other systems are reviewed and are negative PMFSH Past Medical History Medical History Mild intermittent asthma DM type 2 (diabetes mellitus, type 2) GERD (gastroesophageal reflux disease) HTN (hypertension) Vitamin D deficiency Hyperlipidemia Anxiety Allergic rhinitis Depression Dyspepsia Surgical History History of esophagogastroduodenoscopy (EGD) Hx of colonoscopy Family History Family History Unknown No family history of colorectal cancer Social History Social History Household Members: Spouse Patient Tobacco Use Status: Former Tobacco user Tobacco use type: Cigarette Years Smoked: 3 Smoked in Last 30 Days: No Use of substances other than those prescribed or required for medical reasons: No Advance Directives: No Advance Directives Information Provided: Yes Patient : No Current occupational status: unemployed Physical Exam ED Vital Signs: Vital Signs - 24 hr 05/15/24 01:56 05/15/24 03:51 05/15/24 06:14 Temperature 98.7 F 99.1 F 98.5 F Pulse Rate 88 78 79 Respiratory Rate 18 16 16 Blood Pressure 149/75 H 156/81 H 130/73 Pulse Oximetry 96 98 96 Oxygen Delivery Method Room Air Room Air Room Air 05/15/24 06:46 Temperature 98.5 F Pulse Rate 79 Respiratory Rate 16 Blood Pressure 130/73 Pulse Oximetry 96 Oxygen Delivery Method Room Air BMI result Body Mass Index 34.3 Appearance: Alert. Oriented X3. No acute distress. Eyes:no pallor or icterus ENT: Pharynx normal. Oral Mucosa moist Neck: Normal inspection. Neck supple. CVS: Normal heart rate and rhythm. Pulses normal. Respiratory: No respiratory distress. Equal air entry bilateral, no wheezing/rales/rhonchi Abdomen: Soft and deep tenderness right lower quadrant no rebound tenderness or guarding Bowel sounds are present, no mass palpable, no CVA tenderness Skin: Skin warm and dry. Normal skin color. Normal skin turgor. Extremities: No lower extremity edema. No calf tenderness Neuro: Oriented X 3. No motor deficit. Medical Decision Making Medical Decision Making [facility] Narrative: Patient with right-sided pain workup showed 3 mm right distal ureteric stone patient is feeling much better at this time will discharge patient home on Flomax and pain management Differential Diagnosis Differential Diagnoses: The differential diagnosis associated with the presentation includes Lab Data [facility] Lab Attestation statement: I reviewed the patient's lab results. 05/15/24 02:33 05/15/24 02:33 Labs: Lab Results 05/15/24 Range/Units 02:33 WBC 11.4 H (4.8-10.8) X10*3/uL RBC 5.22 (4.20-5.50) X10*6/uL Hgb 14.8 (12.0-16.0) g/dl Hct 43.3 (37.0-47.0) % MCV 83.0 (80.0-98.0) fL MCH 28.4 (27.0-33.0) pg MCHC 34.2 (31.0-35.0) g/dl RDW 13.8 (11.0-16.0) % Plt Count 191 (160-400) X10*3/uL MPV 12.4 H (9.4-12.3) fL Immature Gran % (Auto) 0.3 (0.0-0.4) % Neut % (Auto) 83.6 H (45-73) % Lymph % (Auto) 11.6 L (20-40) % [place] % (Auto) 3.8 (2-11) % Eos % (Auto) 0.3 (0-4) % Baso % (Auto) 0.4 (0-2) % Lymph # (Auto) 1.3 (1.2-4.9) X10*3/uL [place] # (Auto) 0.4 (0.1-1.2) X10*3/uL Eos # (Auto) 0.0 (0.0-0.4) X10*3/uL Baso # (Auto) 0.1 (0.0-0.2) X10*3/uL Abs Immat Gran (auto) 0.03 (0.00-0.03) X10*3/uL Absolute Neuts (auto) 9.6 H (2.0-8.3) x10*3/uL Absolute Nucleated RBC 0.000 (0.0-0.012) X10*3/uL Nucleated RBC % (auto) 0.0 (0.0-0.2) /100WBC Sodium 136 (135-145) mmol/L Potassium 4.3 (3.3-5.1) mmol/L Chloride 103 (96-108) mmol/L Carbon Dioxide 24 (22-29) mmol/L Anion Gap 13 (12-20) BUN 16 (9-16) mg/dL Creatinine 0.91 (0.5-1.4) mg/dL Estim Creat Clear Calc 67.2 Estimated GFR > 60 Random Glucose 157 H (60-115) mg/dL Calcium 9.2 (8.4-10.2) mg/dL Total Bilirubin 0.6 (0.0-1.0) mg/dL AST 24 (5-31) U/L ALT 39 H (0-31) U/L Alkaline Phosphatase 122 H (39-117) U/L Troponin I High Sens < 2.7 (<3.5-17.0) ng/L Total Protein 7.2 (6.5-8.0) g/dL Albumin 4.4 (3.5-5.0) g/dL Lipase 29 (8-78) U/L Urine Color Yellow Urine Appearance Clear Urine pH 6.5 (5.0-9.0) Ur Specific [place] 1.020 (1.005-1.025) Urine Protein Negative (Neg-Trace) mg/dL Urine Glucose (UA) 100 H (Negative) mg/dL Urine Ketones Trace (Negative) mg/dL Urine Blood Negative (Negative) Urine Nitrite Negative (Negative) Ur Leukocyte Esterase Negative (Negative) Urine RBC 0-2 (0-2) /HPF Urine WBC 0-5 (0-5) /HPF Ur Squamous Epith Cells 0-2 (0-2) /HPF Urine Bacteria None Seen (None Seen) Hyaline Casts 0-2 (0-2) /LPF Independent Interpretation I performed an independent interpretation of an: CT Scan Radiology Impression Discussion of test interpretation with radiology: I have reviewed the radiologist's reading. Radiologist Impression: CT/CT abdomen pelvis w IV con IMPRESSION: Mild to moderate right hydronephrosis and hydroureter extending into the pelvis to the level of a 3 mm distal right ureteric calculus. Diverticulosis without diverticulitis. Fibroid uterus. Fleischner guidelines were followed. Electronically signed by: Lam King MD 05/15/2024 05:30 AM EDT Medications Administered Discontinued Medications Generic Name Dose Route Start Last Admin Trade Name Daren PRN Reason Stop Dose Admin Iohexol 85 ml 05/15/24 03:47 05/15/24 03:48 Iohexol 350 Mg/Ml 100 Ml Infus..Btl IV 05/15/24 03:48 85 ml ONCE ONE Administration Ketorolac Tromethamine 30 mg 05/15/24 02:50 05/15/24 03:12 Ketorolac Tromethamine 30 Mg/Ml Vial IVPUSH 05/15/24 02:51 30 mg ONCE ONE Administration Morphine Sulfate 4 mg 05/15/24 04:06 05/15/24 06:18 Morphine Sulfate 4 Mg/Ml Cartridge IVPUSH 05/15/24 04:07 Not Given ONCE ONE Protocol Ondansetron HCl 4 mg 05/15/24 02:50 05/15/24 03:12 Ondansetron Hcl 4 Mg/2 Ml Vial IVPUSH 05/15/24 02:51 4 mg ONCE ONE Administration Tamsulosin HCl 0.4 mg 05/15/24 06:28 05/15/24 06:44 Tamsulosin Hcl 0.4 Mg Capsule PO 05/15/24 06:29 0.4 mg ONCE ONE Administration Discharge Plan Discharge Clinical Impression: Calculus of kidney Patient Disposition: Home, Self-Care Instructions: Kidney Stones (ED), Low Oxalate Diet (ED) Additional Instructions: Drink plenty of fluids Your small stone in the right kidney tube which should pass Pain medication and Flomax as prescribed See urologist if pain continues Prescriptions: New tamsulosin [Flomax] 0.4 mg capsule 0.4 mg PO BEDTIME Qty: 7 0RF oxycodone 5 mg tablet 5 mg PO Q6H PRN (Reason: pain) Qty: 20 0RF Rx Instructions: Partial Fill upon patient request. ibuprofen 600 mg tablet 600 mg PO Q6H PRN (Reason: fever or pain) Qty: 30 0RF No Action omeprazole 20 mg capsule,delayed release(DR/EC) 20 mg PO DAILY atorvastatin 40 mg tablet 40 mg PO DAILY diclofenac sodium 1 % gel 2 g topical QID fexofenadine 60 mg tablet 60 mg PO BID metformin 500 mg tablet 500 mg PO BID amlodipine 5 mg tablet 5 mg PO DAILY cholecalciferol (vitamin D3) 50 mcg (2,000 unit) capsule 50 mcg PO DAILY fluticasone propionate 50 mcg/actuation spray,suspension 1 spray intranasal BID Referrals: Woo Anglin MD [Physician] - 1 week Interventions: ED Discharge Assessment Last Done: 05/15/24 06:46 Discharge Date/Time: 05/15/24 06:49 Print Language: Belarusian
[2024-05-15 02:40] LABS: MANUAL DIFF FLAG NO
[2024-05-15 02:41] LABS: Basophils Absolute Auto 0.1 X10*3/uL (0.0-0.2); Basophils Percent Auto 0.4 % (0-2); Eosinophils Percent Auto 0.3 % (0-4); Hematocrit 43.3 % (37.0-47.0); Hemoglobin 14.8 g/dl (12.0-16.0); Imm Gran Abs Auto 0.03 X10*3/uL (0.00-0.03); Imm Gran Pct Auto 0.3 % (0.0-0.4); Lymphocytes Absolute Auto 1.3 X10*3/uL (1.2-4.9); Lymphocytes Percent Auto 11.6 % (20-40); Mean Corpuscular HGB Conc 34.2 g/dl (31.0-35.0); Mean Corpuscular Hemoglobin 28.4 pg (27.0-33.0); Mean Platelet Volume 12.4 fL (9.4-12.3); Monocytes Absolute Auto 0.4 X10*3/uL (0.1-1.2); Monocytes Percent Auto 3.8 % (2-11); Neutrophils Absolute Auto 9.6 x10*3/uL (2.0-8.3); Neutrophils Percent Auto 83.6 % (45-73); Platelet Count 191 X10*3/uL (160-400); Red Blood Count 5.22 X10*6/uL (4.20-5.50); Red Cell Distribution Width 13.8 % (11.0-16.0); White Blood Count 11.4 X10*3/uL (4.8-10.8)
[2024-05-15 02:43] LABS: Appearance Urine Clear; Color Urine Yellow; Glucose Urine UA 100 mg/dL (Negative); Leukocyte Esterase Urine Negative (Negative); Nitrite Urine Negative (Negative); PH 6.5 (5.0-9.0); Urine Blood Negative (Negative); Urine Ketones Trace mg/dL (Negative); Urine Protein Negative (Neg-Trace)
[2024-05-15 02:46] LABS: Bacteria Urine None Seen (None Seen); Hyaline Casts Urine 0-2 /LPF (0-2); RBC Urine 0-2 /HPF (0-2); Squamous Epithelial Cell Urine 0-2 /HPF (0-2); WBC Urine 0-5 /HPF (0-5)
[2024-05-15 03:01] LABS: Alanine Aminotransferase 39 U/L (0-31); Albumin Level 4.4 g/dL (3.5-5.0); Alkaline Phosphatase 122 U/L (39-117); Anion Gap 13 (12-20); Aspartate Amino Transferase 24 U/L (5-31); Bilirubin Total 0.6 mg/dL (0.0-1.0); Blood Urea Nitrogen 16 mg/dL (9-16); Calcium 9.2 mg/dL (8.4-10.2); Carbon Dioxide 24 mmol/L (22-29); Chloride 103 mmol/L (96-108); Creatinine Clr Calc Pharmacy 67.2; Estimated Glomerular Filt Rate > 60; Glucose Random 157 mg/dL (60-115); Lipase 29 U/L (8-78); Potassium 4.3 mmol/L (3.3-5.1); Sodium 136 mmol/L (135-145); Total Protein 7.2 g/dL (6.5-8.0)
[2024-05-15 03:07] LABS: Troponin-I High Sensitivity < 2.7 ng/L (<3.5-17.0)
[2024-05-15] MEDS: ondansetron HCL 4 MG/2 ML VIAL IVPUSH (03:12)
[2024-05-15] MEDS: Ketorolac Tromethamine 30 MG/ML VIAL IVPUSH (03:12)
[2024-05-15] MEDS: iohexoL 350 MG/ML 100 ML INFUS..BTL 85 ML IV (03:48)
[2024-05-15 03:51] VITALS: BP 156/81; PULSE 78; RESP 16; TEMP 37.3; O2SAT 98
[2024-05-15 06:14] VITALS: BP 130/73; PULSE 79; RESP 16; TEMP 36.9; O2SAT 96
[2024-05-15] MEDS: Tamsulosin HCL 0.4 MG CAPSULE PO (06:44)
[2024-05-15 06:46] VITALS: BP 130/73; PULSE 79; RESP 16; TEMP 36.9; O2SAT 96
== END 2024-05-15 06:49 | disposition home or self-care (01) ==
PROVIDERS: Emergency Provider Internal Medicine
DX: N20.0 Calculus of kidney (principal); R10.31 Right lower quadrant pain; I10 Essential (primary) hypertension; Z79.899 Other long term (current) drug therapy; Z87.891 Personal history of nicotine dependence
CPT/HCPCS: 36415; 74177; 80053; 81001; 83690; 84484; 85025; 96374; 96375; 99284; J1885; J2405; Q9967

== ENCOUNTER 2024-06-26 11:25 | Outpatient (REF) | payer MEDICAID, SELFPAY ==
[2024-06-17 10:31] LABS: HPV 16,18/45 See PAP report
== END 2024-06-26 11:26 | disposition home or self-care (01) ==
LOC: HO.LNP 11:25
PROVIDERS: Visit Provider Registered Nurse
DX: Z12.4 Encounter for screening for malignant neoplasm of cervix (principal)
CPT/HCPCS: 87624; 88175

== ENCOUNTER 2024-06-30 13:17 | Outpatient (AMB) | payer MEDICAID, SELFPAY ==
--- NOTE | 2024-06-29 21:38 | MHC.OFFVIS ---
Intake Visit Reasons: ureteral stone Intake Note: New patient is present to establish care for [facility] ER follow up Any Urology Medications: none Antibiotic Allergy: Penicillins Blood Thinner: none Family History: Bladder Cancer? no Prostate Cancer? 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 Center Supervisor Language: Chemical Blender Name: [id number] Allergies latex Allergy (Intermediate, Verified 06/30/24 13:58) Itching penicillin V Allergy (Mild, Verified 06/30/24 13:58) Abdominal Pain lisinopril Allergy (Unknown, Verified 06/30/24 13:58) cough Medication List - Last Reconciled 06/30/24 by Dipti Desouza MD amlodipine 5 mg PO DAILY atorvastatin 40 mg PO DAILY cholecalciferol (vitamin D3) 50 mcg PO DAILY diclofenac sodium 1% 2 grams topical QID fexofenadine 60 mg PO BID fluticasone propionate 50 mcg/actuation 1 spray intranasal BID ibuprofen 600 mg PO Q6H PRN metformin 500 mg PO BID omeprazole 20 mg PO DAILY oxycodone 5 mg PO Q6H PRN HPI Comments Details: 06/29/24--Mary is here as a new patient evaluation due to ureteral stone. She had a CT scan in April due to right flank pain. She is unsure if she passed the stone but has felt better. She still complains of some pressure over the bladder area which is more midline. I have discussed follow-up with renal bladder ultrasound. Also discussed 24 hour urine for evaluation. CTAP-05/15/24--Mild to moderate right hydronephrosis and hydroureter extending into the pelvis to the level of a 3 mm distal right ureteric calculus. [facility] Medical History Mild intermittent asthma DM type 2 (diabetes mellitus, type 2) GERD (gastroesophageal reflux disease) HTN (hypertension) Vitamin D deficiency Hyperlipidemia Anxiety Allergic rhinitis Depression Dyspepsia Surgical History History of esophagogastroduodenoscopy (EGD) Hx of colonoscopy Family History Unknown No family history of colorectal cancer Social History Household Members: Spouse Patient Tobacco Use Status: Former Tobacco user Tobacco use type: Cigarette Years Smoked: 3 Current occupational status: unemployed Review of Systems Const All systems reviewed & are unremarkable except as noted in HPI and below Reports no additional complaints Eyes Reports no additional complaints ENT Reports no additional complaints Card Reports no additional complaints Resp Reports no additional complaints GI Reports no additional complaints Reports as per HPI Musc Reports no additional complaints Skin/Breast Reports system reviewed and no additional complaints, except as documented Neuro Reports no additional complaints Psych Reports no additional complaints Endo Reports no additional complaints Shaun/Lymph Reports no additional complaints Aller/Immun Reports no additional complaints Physical Exam Const General: cooperative, healthy appearing and no acute distress Nutritional Appearance: overweight Orientation/consciousness: patient oriented x3 HEENT Head: Yes normal to inspection, Yes normocephalic and Yes atraumatic Eyes Conjunctivae: conjunctivae normal Neck Neck: Yes normal visual inspection and Yes trachea midline Chest Chest palpation & inspection: normal inspection of the chest Resp Effort & Inspection: normal respiratory effort Cardio Rate: regular rate GI Inspection: Yes normal to inspection Skin General skin exam: no rashes or lesions noted Neuro General: patient oriented x3 Extrem General: No edema Psych Appearance: grossly normal Results AMB Urinalysis, Automated UA Leukoctes 0 Bennett/uL Last Edit by Angelica Christine CMA on 06/30/24 14:06 UA Nitrite Negative Last Edit by Angelica Christine CMA on 06/30/24 14:06 UA Urobilinogen 0.2 mg/dL Last Edit by Angelica Christine CMA on 06/30/24 14:06 UA Protein 0 mg/dL Last Edit by Angelica Christine CMA on 06/30/24 14:06 UA pH 6.0 Last Edit by Angelica Christine CMA on 06/30/24 14:06 UA Blood 0 Heri/uL Last Edit by Angelica Christine CMA on 06/30/24 14:06 UA Specific [place] 1.030 Last Edit by Angelica Christine CMA on 06/30/24 14:06 UA Ketone Negative Last Edit by Angelica Christine CMA on 06/30/24 14:06 UA Bilirubin 0 mg/dL Last Edit by Angelica Christine CMA on 06/30/24 14:06 UA Glucose 0 mg/dL Last Edit by Angelica Christine CMA on 06/30/24 14:06 Results Reviewed Results Reviewed: Laboratory Last Values Urine pH (Auto) 6.0 06/30/24 13:56 Specific [place] (Auto) 1.030 06/30/24 13:56 Urine Protein (Auto) 0 mg/dL 06/30/24 13:56 Glucose (UA)(Auto) 0 mg/dL 06/30/24 13:56 Urine Ketones (Auto) Negative 06/30/24 13:56 Urine Blood (Auto) 0 Heri/uL 06/30/24 13:56 Urine Nitrite (Auto) Negative 06/30/24 13:56 Urine Bilirubin (Auto) 0 mg/dL 06/30/24 13:56 Urine Urobilinogen (Auto) 0.2 mg/dL 06/30/24 13:56 Leukocyte Esterase (Auto) 0 Bennett/uL 06/30/24 13:56 Date of Service: 05/15/24 CT ABDOMEN AND PELVIS WITH CONTRAST CLINICAL INFORMATION: Pain. COMPARISON: None available. TECHNIQUE: Multidetector volumetric images were obtained from the superior aspect of the liver through the pubic symphysis following administration 85 mL of Omnipaque 350 intravenous contrast. Sagittal and coronal reformatted images were obtained on the technologist's workstation. Oral contrast: No This CT examination was performed using dose optimization techniques as appropriate, variously including the following: *Automated exposure control *Adjustment of mA and/or kV according to patient size (this includes techniques or standardized protocols for targeted exams where dose is matched to indication/reason for exam; i.e. extremities or head) *Use of iterative reconstruction technique DLP: 711 mGy-cm FINDINGS: LUNG BASES: The visualized lung bases are unremarkable. LIVER, GALLBLADDER, AND BILIARY TREE: The liver is normal in size, shape, and attenuation. No focal hepatic lesion or biliary ductal dilatation is present. The gallbladder is unremarkable with no evidence of radiopaque gallstones, gallbladder wall thickening, or obvious pericholecystic inflammatory changes. PANCREAS: Unremarkable. SPLEEN: Unremarkable. ADRENAL GLANDS: Unremarkable. KIDNEYS AND URETERS: The kidneys are normal in size, shape, and attenuation. There is right perinephric stranding. There is mild to moderate right hydronephrosis and hydroureter extending into the pelvis to the level of a 3 mm distal right ureteric calculus BLADDER: Unremarkable. GASTROINTESTINAL TRACT: There are diverticula of the descending and sigmoid colon without diverticulitis. The appendix is not seen. ABDOMINAL WALL: No significant hernia is appreciated. LYMPH NODES: Normal. VASCULAR: There is mild atherosclerotic plaque of the abdominal aorta. PELVIC VISCERA: Multiple uterine fibroids are noted measuring up to 2.6 cm OSSEOUS STRUCTURES: Unremarkable. IMPRESSION: Mild to moderate right hydronephrosis and hydroureter extending into the pelvis to the level of a 3 mm distal right ureteric calculus. Diverticulosis without diverticulitis. Fibroid uterus. Assessment & Plan Assessment & Plan (1) Ureteral stone: Code(s): N20.1 - Calculus of ureter Category: Medical (2) Hydronephrosis, right: Code(s): N13.30 - Unspecified hydronephrosis Category: Medical (3) Sensation of pressure in bladder area: Code(s): R39.89 - Other symptoms and signs involving the genitourinary system Category: Medical Plan Renal bladder ultrasound, 24 hour urine Orders: Orders AMB Urinalysis Automated Today Z13.9 - Encounter for screening, unspecified US retroperitoneal comp Today N13.30 - Unspecified hydronephrosis, N20.1 - Calculus of ureter, R39.89 - Other symptoms and signs involving the genitourinary system Patient Instructions: The patient had an opportunity to ask questions regarding treatment plan. The patient expressed understanding and agreement with the above treatment plan. The patient is aware they should contact our office by phone for worsening of their current condition or the appearance of new symptoms. Compliance is encouraged with any medications and followup testing that is ordered. It is a privilege to be allowed the opportunity to participate in the urologic care of your patient. If you have any questions or concerns regarding treatment for the above conditions please do not hesitate to contact me. The office telephone contact is [phone]. This note is constructed in part using voice recognition software. While every effort has been made to ensure accuracy instrument technician errors may have been included. Yours sincerely, Dipti Desouza MD Coding Level of Care Code New Pt Level 4 (13243) Diagnoses Ureteral stone N20.1 Hydronephrosis, right N13.30 Sensation of pressure in bladder area R39.89
== END 2024-06-30 14:26 | disposition home or self-care (01) ==
PROVIDERS: PCP Registered Nurse; Visit Provider Urology
DX: N20.1 Calculus of ureter (principal); N13.30 Unspecified hydronephrosis; R39.89 Other symptoms and signs involving the genitourinary system; Z13.9 Encounter for screening, unspecified
CPT/HCPCS: 99204

== ENCOUNTER → 2024-06-30 13:17 | Outpatient (BNVA) | payer MEDICAID, SELFPAY | PROVIDERS: PCP Registered Nurse; Visit Provider Urology | DX: N20.1 Calculus of ureter (principal); N13.30 Unspecified hydronephrosis; R39.89 Other symptoms and signs involving the genitourinary system | CPT/HCPCS: 81003; 99202 ==

== ENCOUNTER 2024-07-07 10:17 | Outpatient (REF) | payer MEDICAID, SELFPAY ==
[2024-07-07 12:45] LABS: Cholesterol 167 mg/dL (<200); HDL Cholesterol 46 mg/dL (>40); LDL Cholesterol Calculated 84 mg/dL (<100); Triglycerides 188 mg/dL (<150)
[2024-07-07 13:11] LABS: Creatinine Urine 76.65 mg/dL; Microalbum/Creatinine Ratio Ur 9.1 ug/mg cr (<30)
== END 2024-07-07 10:18 | disposition home or self-care (01) ==
LOC: HO.HHCL 10:17
PROVIDERS: Visit Provider Registered Nurse
DX: E11.9 Type 2 diabetes mellitus without complications (principal); R00.2 Palpitations
CPT/HCPCS: 36415; 80061; 82043; 82570; 84443

== ENCOUNTER → 2024-07-11 07:00 | Outpatient (BNV) | payer MEDICAID, SELFPAY | PROVIDERS: PCP Registered Nurse; Visit Provider Internal Medicine | DX: I42.2 Other hypertrophic cardiomyopathy (principal) | CPT/HCPCS: 93306 ==

== ENCOUNTER → 2024-07-11 09:35 | Outpatient (REF) | payer MEDICAID, SELFPAY ==
--- NOTE | 2024-07-11 07:00 | CA_ITS ---
Transthoracic Echocardiogram Patient (Last, First, Middle): Mary Redding, Gender: Female Date of : 1965 Age: 59 Procedure Date: 07/11/2024 Procedure Type: Transthoracic Echocardiogram Location: OP Height: 162.56 cm Weight: 81.65 kg BSA: 1.87 m2 Heart Rate: 76 bpm BP: 130 / 72 mmHg Firer Locomotive: SB Referring MD: Gisele Collinwood LARA Symptoms: PALPITATIONS, SOB R00.2 Study Quality: Fair but adequate ECG Rhythm: Sinus Conclusions: - The left ventricular systolic function is normal. The calculated ejection fraction is 59% by biplane method. - No obvious valvular pathology seen on this study. Findings Left Ventricle Normal left ventricular cavity size. The left ventricular systolic function is normal. The calculated ejection fraction is 59% by biplane method. There is no evidence of regional wall motion abnormalities. Diastolic function is normal for age. There is mild septal asymmetric hypertrophy. Right Ventricle Normal right ventricular cavity size and systolic function. Atria Both atria are normal in size. Aortic Valve There is a normal trileaflet aortic valve. There is no aortic valve stenosis. There is no aortic valve regurgitation. Mitral Valve The mitral valve appears normal. There is no mitral valve regurgitation. There is no mitral valve stenosis. Pulmonic Valve The pulmonic valve is likely normal. Tricuspid Valve Normal tricuspid valve structure. There is trace tricuspid valve regurgitation. There is no evidence of pulmonary hypertension. Great Vessels The asc aorta is normal in size. Venous The inferior vena cava is normal in size and collapses greater than 50% with inspiration. Pericardium/Pleural There is no evidence of pericardial effusion. Prior Study Comparison No significant change compared to prior study dated: 04/30/2018. Recommendations, Care & Conclusions No obvious valvular pathology seen on this study. Measurements 2D Linear Measurements IVSd: 1.09 0.6-0.9/0.6-1.0 cm LVIDd: 4.07 3.9-5.3/4.2-5.9 cm LVIDd Index: 2.18 2.4-3.2/2.2-3.1 cm/m2 LVIDs: 2.72 2.0-3.6 cm LVPWd: 0.58 0.7-1.1 cm LA Diam: 3.80 2.7-3.8/3.0-4.0 cm LAIDs Index: 2.03 1.5-2.3 cm/m2 LV Mass: 126.36 67-162/88-224 g LV Mass Index: 67.57 43-95/49-115 g/m2 LVOT Diam: 2.20 3.0+(-)1.3 cm 2D Systolic Function EF 4C: 56.80 >55% EF 2C: 61.80 >55% EF BiP: 58.70 >55% Mitral Valve MV Pk E: 0.67 MV PK A: 0.78 MV Decel Time: 181.00 E/A: 0.90 E'Lateral: 8.59 E'Medial: 6.20 E/E' Med: 10.90 E/E' Lat: 7.80 PHT: 53.00 MVA PHT: 4.15 Decel Reynolds: 3.72 Aortic Valve AoV Pk Rickey: 1.22 AoV Pk Grad: 6.00 ROCCO: 3.19 LVOT LVOT Pk Rickey: 1.02 LVOT Mn Rickey: 0.62 LVOT VTI: 0.21 LVOT Pk Grad: 4.00 LVOT Mn Grad: 2.00 LVOT Diam: 2.20 LVOT Area: 3.80 Diastolic Function MV Pk E: 0.67 MV Pk A: 0.78 E/A: 0.90 E'Medial: 6.20 E/E' Med: 10.90 E' Laterial: 8.59 E/E' Lat: 7.80 Right Ventricle TAPSE (mm): 16.90 TVS' Rickey: 13.70 Tricuspid Valve RA Press: 3.00 Great Vessels Aorta Sinus of Valsalva: 2.80 2.0-3.5 cm Ao Asc: 2.80 2.1-3.4 cm Pulmonary Veins Pulm Vein S/D 1.60 Pulmonary Valve PV Pk Rickey: 0.68 Peak PV Grad: 2.00 NE Pk Rickey: 1.47 Updated in Other Vendor System with Status of Final Franklin Hilliard MD electronically signed on 07/12/2024 2:17:31 PM with status of Final
== END ==
LOC: HO.CARD 09:35
PROVIDERS: PCP Registered Nurse; Visit Provider Registered Nurse
DX: R00.2 Palpitations (principal)
CPT/HCPCS: 93225; 93306

== ENCOUNTER 2024-07-18 13:07 | Outpatient (REF) | payer MEDICAID, SELFPAY | END 2024-07-18 13:08 | disposition home or self-care (01) | LOC: HO.US 13:07 | PROVIDERS: PCP Registered Nurse; Visit Provider Urology | DX: R39.89 Other symptoms and signs involving the genitourinary system (principal); N13.30 Unspecified hydronephrosis; N20.1 Calculus of ureter | CPT/HCPCS: 76770 ==

== ENCOUNTER → 2024-07-18 13:09 | Outpatient (BNV) | payer MEDICAID, SELFPAY | PROVIDERS: PCP Registered Nurse; Visit Provider Radiology Diagnostic Radiology | DX: R39.89 Other symptoms and signs involving the genitourinary system (principal) | CPT/HCPCS: 76770 ==

== ENCOUNTER 2024-08-18 15:31 | Outpatient (REF) | payer MEDICAID, SELFPAY ==
--- OUTSIDE RECORDS SUMMARY | 2024-08-18 19:32 | XMS_ITS | Encounter Summary ---
Author Organization [facility] Address [address] [place] [address] 7located within [facility] [place] [address] Care Team Providers Care Lighting Fixture Installer Name Role Phone Julisa Klein MD Primary Care Provider Gisele Neves FEED INSPECTION SUPERVISOR Primary Care Provider [phone] Encounter Details Date Type Department Care Team (Latest Contact Info) Description 05/29/2019 Abstract [facility] CONVERSIONS Dental, Provider, DDS Social History Tobacco Use Types Packs/Day Years Used Date Smoking Tobacco: Never Assessed Comments Unknown Sex and Gender Information Value Date Recorded Sex Assigned at Female 05/22/2022 10:21 AM EDT Legal Sex Female 10:21 AM EDT Gender Identity Female 05/22/2022 10:21 AM EDT Sexual Orientation Straight 05/22/2022 10 :21 AM EDT documented as of this encounter Plan of Treatment Upcoming Encounters Date Type Department Care Team (Late st Contact Info) Description 09/17/2024 2:30 PM EST Office Visit [facility] OPTOMETRY [address] [place] [address] BernardKinga león, OD [address] [place] [address] documented as of this encounter Visit Diagnoses Not on filedocumented in this encounter Care Teams Lighting Fixture Installer Relationship Specialty Start Date End Date Julisa Klein MD PCP - General Family Medicine 06/25/19 08/15/22 Gisele Rodriguez FEED INSPECTION SUPERVISOR [address] [place] [address] PCP - General Family Medicine 08/16/22 documented as of this encounter
--- OUTSIDE RECORDS SUMMARY | 2024-08-18 19:32 | XMS_ITS | Clinical Summary ---
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 18 g 11 3 Active Alcohol Swabs (Alcohol Prep) padsIndications:Ty pe 2 diabetes mellitus without complication, without long-term current use of insulin (CMS/[facility]) Use one pad each to prep skin prior to injection as directed 100 each 11 3 Active Lancets 33G miscIndications:Ty pe 2 diabetes mellitus without complication, without long-term current use of insulin (CMS/HCC) Use as directed to check blood sugar four times daily 100 each 3 3 Active Blood Glucose Monitoring Suppl (GNP Easy Touch Glucose Meter) deviceIndications: Type 2 diabetes mellitus without complication, without long-term current use of insulin (CMS/HCC) Use as directed to check blood sugar four times daily 1 each 3 Active glucose blood test stripIndications:T ype 2 diabetes mellitus without complication, without long-term current use of insulin (CMS/HCC) Use as directed to check blood sugar four times daily 100 each 12 3 Active amLODIPine (Norvasc) 5 MG tabletIndications: Essential hypertension TAKE 1 TABLET BY MOUTH EVERY DAY 90 tablet 3 4 Active metFORMIN (Glucophage) 500 MG tablet TAKE 1 TABLET BY MOUTH TWICE DAILY IN THE MORNING AND IN THE EVENING WITH MEALS 180 tablet 1 4 Active Diclofenac Sodium 1 % gelIndications:Gibson n APPLY 2 GRAMS TOPICALLY TO AFFECTED AREA(S) FOUR TIMES DAILY DIRECTED 100 g 1 4 Active omeprazole (PriLOSEC) [address] capsuleIndications :Type 2 diabetes mellitus without complication, without long-term current use of insulin (CMS/HCC) Take 1 capsule (20 mg) by mouth Once per day. 30 capsule 4 Active fluticasone (Flonase) 50 MCG/ACT nasal sprayIndications:A llergic rhinitis, unspecified seasonality, unspecified trigger Administer 2 sprays into each nostril Once per day. Shake gently. Before first use, prime pump. After use, clean tip and replace cap. 48 g 4 Active clotrimazole (Lotrimin) 1 % creamIndications:T inea pedis of left foot APPLY TOPICALLY TO THE AFFECTED AREA(S) TWICE DAILY DIRECTED 15 g 1 4 Active cholecalciferol (D3 Super Strength) 50 MCG (2000 UT) capsule TAKE 1 CAPSULE BY MOUTH EVERY DAY 90 capsule 1 4 Active meloxicam (Mobic) 7.5 MG tabletIndications: Chronic pain of both knees TAKE 1 TABLET BY MOUTH EVERY DAY IN THE MORNING. MAY TAKE 1 ADDITIONAL TABLET NEEDED FOR PAIN. DO NOT EXCEED 2 TABLETS IN 24 HOURS 30 tablet 3 4 Active sertraline (Zoloft) 50 MG tabletIndications: Anxiety Take 1 tablet (50 mg) by mouth Once per day. 30 tablet 11 4 025 Active atorvastatin (Lipitor) 40 MG tabletIndications: Mixed hyperlipidemia TAKE 1 TABLET BY MOUTH EVERY DAY 90 tablet 1 4 Active fexofenadine (Kendal) 60 MG tabletIndications: Allergic rhinitis, unspecified seasonality, unspecified trigger TAKE 1 TABLET BY MOUTH TWICE DAILY 180 tablet 1 4 Active Active Problems Problem Noted Date Diagnosed Date NAFLD (nonalcoholic fatty liver disease) 023 Overview (04/17/2023): ? ? Abdominal ultrasound 02/2023 with the following impression : generalized increase in hepatic echotexture, consistent with fatty infiltration or hepatocellular disease. No focal hepatic mass or intrahepatic biliary dilatation is seen. There is borderline dilatation of the common bile duct. FIB 4= 0.84, exculding advanced fibrosis Assessment & Plan (04/26/2023 10:28 AM EDT): ?? Counseled on diet/exercise ?? Will continue to monitor ?? No indication for GI referral at this time Healthcare maintenance 02/17/2023 Overview (07/18/2023): Mammo: 06/2022 normal -- Pap: Nil HPV+ 03/2022 NIL HPV neg 05/2023 Repeat due 03/2024 C-scope: 2021, q. 3 years d/t polyp BMD: Routine age 65 Eye Exam: 2022 with [facility] Assessment & Plan (08/03/2023 9:35 AM EST): ?? Declines covid vaccine ?? Will request recent mammo rpeort Assessment & Plan (04/26/2023 10:29 AM EDT): Accepts PCV 20 Declines FLU Chronic pain of both knees 08/24/2022 Assessment & Plan (08/25/2022 6:16 AM EST): - X-ray in 2019 showed mild degenerative change - order new X-ray - change naproxen to meloxicam - continue diclofenac gel prn - refer to orthopedist for further evaluation and steroid injection - Gastroesophageal reflux disease 08/23/2022 Type 2 diabetes mellitus without complication Overview (04/02/2024): Metformin monotherapy Foot Exam: 03/2024 RISK 0 Eye Exam: Established at outside facility ASCVD: 7.4% Statin: Yes ASA: No KALE/ARB: No Encouraged regular aerobic exercise for improved glycemic control Encouraged daily foot checks Encouraged lean protein snacks and to avoid foods high in sugar and simple carbohydrates Treatment Goals: A1c goal: <7% FBG goal: <130 2 hour post prandial goal: <180 Assessment & Plan (08/03/2023 9:34 AM EST): Lab Results Component Value Date HGBA1C 6.2 (A) 04/18/2023 Well controlled Continue current regimen ?? Complete microalbumin screen Assessment & Plan (04/26/2023 10:28 AM EDT): Lab Results Component Value Date HGBA1C 6.2 (A) 04/18/2023 ?? Well controlled ?? Continue current regimen ?? Foot exam completed today RISK 0 ?? Microalbumin ordered Assessment & Plan (08/25/2022 6:17 AM EST): - well-controlled DM - pt is aware that steroid can increase BP and BG - continue metformin as prescribed by PCP Essential hypertension 04/15/2018 Overview (04/02/2024): Amlodipine 5mg - Aerobic exercise to reduce BP. Initial goal of 30 min walk 3-5x/week. Increase as tolerated. - low-sodium diet (goal: <2g/day) and heart healthy diet such as DASH to reduce BP and prevent ASCVD. - Home BP monitoring 1-2 x day with goal of <140/90. - Seek immediate medical attention for chest pain, palpitations, SOB, syncope, or sudden changes in mental status. - Do not change or discontinue current prescriptions without first consulting health care provider Assessment & Plan (08/03/2023 9:33 AM EST): ?? Well controlled ?? Continue current regimen Assessment & Plan (04/26/2023 10:26 AM EDT): ?? Well controlled ?? Continue current regimen Mixed hyperlipidemia 06/28/2016 Overview (04/26/2023): ?? Atorvastatin 40mg ?? ASCVD risk 01/2023 7.4% Assessment & Plan (08/03/2023 9:33 AM EST): ?? Well controlled ?? Continue current regimen Assessment & Plan (04/26/2023 10:27 AM EDT): ?? Continue current regimen Vitamin D deficiency 06/28/2016 Depressive disorder 12/26/2013 Assessment & Plan (08/03/2023 9:36 AM EST): ?? Hx of depression/anxiety. No current medication. Not working with a therapist ?? Declines referral at this time ?? Will continue to monitor sx ?? Contact HC if sx worsen or experiencing thoughts of SI or self harm. Pt has [facility] crisis contact information Allergic rhinitis 07/30/2012 Assessment & Plan (08/25/2022 6:17 AM EST): - continue current medications per PCP Anxiety 05/28/2012 Overview (11/01/2023): Establshed with therapist Obesity 05/28/2012 Encounters Date Type Department Care Team Description 07/10/2024 Telephone [facility] [address] [place] [phone] Gisele Rodriguez FNP Letter for Jury Duty (The patient requested a letter, asking to be excused from serving jury duty. I informed her, that per her PCP, she does not have a qualifying condition at this time. She could be provided with a letter listing her chronic medical conditions, and it could state that those conditions may impact her ability to serve. She agreed to the letter, but she does not speak Barbadian, and would like for that to be added to the letter. She would like for it to be faxed, and a copy mailed to her home.) 07/07/2024 9:45 AM EST Office Visit [facility] [address] [place] [address] Gisele Rodriguez FNP Type 2 diabetes mellitus without complication, without long-term current use of insulin ([facility]) (Primary Dx); Palpitations; Encounter for screening mammogram for breast cancer; Atypical squamous cells of undetermined significance on cytologic smear of cervix (ASC-US) 07/07/2024 Travel 06/30/2024 Travel 06/25/2024 Orders Only [facility] [address] [place] [address] [place] [facility] Atypical squamous cells of undetermined significance on cytologic smear of cervix (ASC-US) (Primary Dx) 06/16/2024 9:15 AM EST Procedure Visit [facility] [address] [place] [address] [facility] Encounter for Papanicolaou smear for cervical cancer screening (Primary Dx) 06/16/2024 Travel 06/16/2024 Refill [facility] [address] [place] [address] [facility] Mixed hyperlipidemia; Allergic rhinitis, unspecified seasonality, unspecified trigger 06/09/2024 1:00 PM EST Telemedicine [facility] [address] [place] [address] [facility] Anxiety (Primary Dx); Palpitations 06/09/2024 Travel 06/08/2024 Travel 06/05/2024 Travel 05/30/2024 Telephone [facility] [address] [place] [address] [facility] Medication Question 05/20/2024 Travel from Last 3 Months Immunizations Name Administration Dates Next Due Hep B, adult 09/26/2010,11/30/2009 Influenza injectable quadriv alent IIV4 with preservative 06/17/2018,06/23/2016 Influenza, IIV3, injectable 06/23/2015, 4,10/14/2009 Influenza, Split (incl. mani fied surface antigen) 04/02/2013 Pneumococcal Conjugate PCV 20 04/18/2023 Pneumococcal Polysaccharide PPSV23 05/09/2021 TD (adult), 2 Lf tetanus tox oid, preservative free, adsorbed 08/26/2009 Tdap 06/17/2018 Zoster, Recombinant 03/23/2022,12/26/2021 Family History Medical History Relation Name Comments Liver cancer Father No Known Problems Maternal Grandfather Heart disease Mother Hypertension Mother Stroke Mother Endometrial cancer Mother's Sister Breast cancer Neg Hx Relation Name Status Comments Father Maternal Grandfather Mother Mother's Sister Paternal Grandfather Alive Paternal Grandmother Alive Social History Tobacco Use Types Packs/Day Years Used Date Smoking Tobacco: Former Cigarettes Passive Smoke Exposure: Past Smokeless Tobacco: Never Tobacco Cessation:Counseling Given: Not Answered Alcohol Use Standard Drinks/Week Comments Never 0 (1 standard drink = 0.6 oz pur e alcohol) Alcohol Answer Date Recorded Frequency of Alcohol Consumption Not on file 10/26/2023 Average Number of Drinks Not on file 024 Frequency of Binge Drinking Not on file 11/2023 Score 0 10/26/2023 Depression Answer Date Recorded Patient Health Questionnaire-9 Score 0 07/07/2024 Patient Health Questionnaire-9 Score 0 07/07/2024 Last PHQ-9: Questionnaire Data Not on file 1 09/07/2023 Housing Stability Answer Date Recorded What is your housing situation today? I have rosalie lynne 05/11/[address] you li ve. Do you have problems with any of the following? None of the above 05/11/2023 Food Insecurity Answer Date Recorded Within the past 12 months, y ou worried that your food would run out before you got money to buy more: Never True 05/11/2023 Within the past 12 months,th e food you bought just didn't last and you didn't have enough money to get more: Never True Transportation Answer Date Recorded In the past 12 months, has l ack of transportation kept you from medical appts, meetings, work or from getting things needed for daily living? Yes, it has kept me from non-medical meetings, work, or getting things that I need 10/04/2023 Utilities Answer Date Recorded In the past 12 months, has t he electric, gas, oil or water company threatened to shut off services in your home? No 05/11/2023 Depression Answer Date Recorded Patient Health Questionnaire-2 Score 0 07/07/2024 Comments Unknown Sex and Gender Information Value Date Recorded Sex Assigned at Female 05/22/2022 10:21 AM EDT Legal Sex Female 10:21 AM EDT Gender Identity Female 05/22/2022 10:21 AM EDT Sexual Orientation Straight 05/22/2022 10 :21 AM EDT Last Filed Vital Signs Vital Sign Reading Time Taken Comments Blood Pressure 130/74 07/07/2024 9:43 AM EST Pulse 79 07/07/2024 9:43 AM EST Temperature 36.8 ??C (98.2 ??F) 07/07/2024 9:43 AM ES T Respiratory Rate 20 07/07/2024 9:43 AM EST Oxygen Saturation 98% 07/07/2024 9:43 AM EST Inhaled Oxygen Concentration - - Weight 81.8 kg (180 lb 6.4 oz) 07/07/2024 9:43 A M EST Height 157.5 cm (5' 2 ) 07/07/2024 9:43 AM EST Body Mass Index 33 07/07/2024 9:43 AM EST Plan of Treatment Upcoming Encounters Date Type Department Care Team (Late st Contact Info) Description 09/17/2024 2:30 PM EST Office Visit [facility] [address] [place], [place] [phone] Bernard, Kinga, OD [address] [place] [address] Health Maintenance Due Date Last Done Comments CT Colonography 1965 Dental Oral Exam 1965 Dental Prophylaxis 1965 FIT DNA/Cologuard 1965 FIT 1965 FOBT 1965 Sigmoidoscopy 1965 Hepatitis A Vaccines (1 of 2 - Risk 2-dose series) 01/19/1984 Hepatitis B Vaccines (3 of 3 - 19+ 3-dose series) 11/21/2010 09/26/2010, 11/30/2009 Mammogram 06/29/2023 06/29/2021, 05/31/2018 Dental X-Ray: Bitewings 08/29/2023 08/28/2022 COVID-19 Vaccine ( season) 2024 08/03/2021, 11/22/2020, 10/25/2020 Influenza Vaccine (#1) 2024 8, 06/23/2016, 06/23/2015, Additional history exists SDOH Screening 10/03/2024 10/04/2023 Alcohol/Substance Use Screening 10/25/2024 10/26/2023 Diabetes: Hemoglobin A1C 01/05/2025 024, 04/02/2024, 10/26/2023, Additional history exists Colonoscopy 03/23/2025 03/23/2022 Colorectal Cancer Screening 03/23/2025 Diabetes: Foot Exam 04/02/2025 04/02/2024, 04/02/2024, 04/02/2024, Additional history exists Eye Exam 04/27/2025 04/27/2023, 12/2022, 04/27/2023, Additional history exists Cervical Cancer Screening 06/16/2025 Pap Smear 06/16/2025 06/16/2024, 09/2022, 04/21/2022 Depression Screening 07/07/2025 07/07/2024, 07/07/20 Diabetes: Urine Protein Screening 07/07/2025 07/07/2024, 04/15/2020 Lipid Panel 07/07/2025 07/07/2024, 01/20, 05/16/2021, Additional history exists Tobacco Screening 07/07/2025 07/07/2024 Dental X-Ray: Full Mouth 08/29/2025 08/28/2022 HPV/Cotest 05/25/2028 05/25/2023, 03/25, 09/06/2016 DTaP/Tdap/Td Vaccines (2 - Td or Tdap) 06/17/2028 06/17/2018, 08/26/2009 RSV Patients and Patients Aged 60 years or older (1 - 1-dose 75+ series) 01/19/2040 Zoster Vaccines Completed 03/23/2022, 12/26/2021 HIV Screening Completed 02/05/2023, 05/16/2021 Hepatitis C Screening Completed 02/14/2023, 023 Pneumococcal Vaccine: Pediatrics (0 to 5 Years) and At-Risk Patients (6 to 64 Years) Completed 04/18/2023, 05/09/2021 HIB Vaccines Aged Out No longer eligi ble based on patient's age to complete this topic HPV Vaccines Aged Out No longer eligi ble based on patient's age to complete this topic IPV Vaccines Aged Out No longer eligi ble based on patient's age to complete this topic Meningococcal Vaccine Aged Out No mahamed mary eligible based on patient's age to complete this topic RSV under 20 months Aged Out No longe r eligible based on patient's age to complete this topic Rotavirus Vaccines Aged Out No longer eligible based on patient's age to complete this topic Procedures Procedure Name Priority Date/Time Associated Diagnosis Comments US RETROPERITONEAL COMPLETE Routine 07/18/2024 1:30 PM EST ALBUMIN, RANDOM URINE W/CREATININE Routine 07/07/2024 10:20 AM EST Type 2 diabetes mellitus without complication, without long-term current use of insulin (CMS/HCC) LIPID PANEL, STANDARD Routine 07/07/2024 10:20 AM EST Type 2 diabetes mellitus without complication, without long-term current use of insulin (CMS/HCC) TSH W/REFLEX TO FT4 Routine 07/07/2024 1 0:20 AM EST Palpitations POCT GLUCOSE Routine 07/07/2024 9:45 AM EST Type 2 diabetes mellitus without complication, without long-term current use of insulin (CMS/HCC) POCT GLYCATED HEMOGLOBIN, TOTAL Routine 07/07/2024 9:45 AM EST Type 2 diabetes mellitus without complication, without long-term current use of insulin (CMS/HCC) PAP SMEAR Routine 06/16/2024 9:15 AM EST Encounter for Papanicolaou smear for cervical cancer screening HPV MRNA E6/E7 REFLEX TO HPV 16, 18/45 Routine 05/25/2023 9:30 AM EDT HEPATITIS PANEL, GENERAL Routine 02/14/2023 8:54 AM EDT Elevated liver enzymes HIV 1 RNA, QUANTITATIVE REAL TIME PCR Routine 02/05/2023 8:41 AM EDT DIAGNOSTIC - DIAGNOSTIC IMAGING - INTRAORAL - COMPREHENSIVE SERIES OF RADIOGRAPHIC IMAGES Routine 08/28/2022 11:30 AM EST HM COLONOSCOPY Routine 03/23/2022 MAMMOGRAM GENERIC Routine 06/29/2021 4:1 8 PM EST from Last 3 Months or Most Recently Relevant to Health Maintenance Results * US Retroperitoneal Complete (07/18/2024 1:30 PM EST) Anatomical Region Laterality Modality Ultrasound 07/18/2024 1:30 PM EST Narrative 08/01/2024 10:19 AM EST ? [facility] ?[address] ?[place] [address] ? Ultrasound Report ? Signed ? Patient: Mary Redding ?MR#: M ?? [id number] ? : 1965 ?Acct:[id number] ? Age/Sex: 59 / F ?ADM Date: 07/18/24 ? Loc: HO.US ? Attending Dr: Dipti Desouza MD ? Ordering Physician: Dipti Desouza MD ?? Date of Service: 07/18/24 ?? Procedure(s): US retroperitoneal comp ?? Accession Number(s): [id number] ? cc: Dipti Desouza MD; [facility] ? EXAMINATION: ?? US RETROPERITONEAL COMPLETE (RENAL) ? CLINICAL INFORMATION: ?? Other symptoms and signs involving the genitourinary system. 3 mm right ?? ureteral stone with hydronephrosis on CT in April 2024. ? COMPARISON: ?? CT abdomen and pelvis 05/15/2024. Ultrasound abdomen limited 03/13/2023. ? TECHNIQUE: ?? Real-time imaging of the kidneys and bladder. ? FINDINGS: ? RIGHT KIDNEY: 10.5 x 6.3 x 5.6 cm (SAG x AP x TRV). The kidney is ?? normal in size, contour, and echogenicity. Renal cortical thickness is ?? normal. No calculi or focal parenchymal lesions. No hydronephrosis. ? LEFT KIDNEY: 11.3 x 6.3 x 5.2 cm (SAG x AP x TRV). The kidney is normal ?? in size, contour, and echogenicity. Renal cortical thickness is normal. ?? No calculi or focal parenchymal lesions. No hydronephrosis. ? BLADDER: Well distended and normal. Bilateral ureteral jets are ?? demonstrated. Prevoid bladder volume is 299.0 mL. Postvoid bladder ?? volume is 19.6 mL. ? US/US retroperitoneal comp ?? IMPRESSION: ?? Normal retroperitoneal ultrasound. Resolution of previously seen right ?? hydronephrosis. ? Electronically signed by: ??Alex Almaguer MD ??08/01/2024 10:15 AM EST RP ? Dictated By: ?Alex Almaguer MD ? Signed By: ?<Electronically signed by Alex Almaguer MD in OV> ?08/01/24 1015 ? DD/ 1330 ? TD/TT: 07/18/24 1350 ? Agent Producer: ? Procedure Note Donotnaninterpreter, Image - 08/01/[address] [address] Ultrasound Report Signed Patient: Erma Redding#: M [id number] : 1965Acct:[id number] Age/Sex: 59 / FADM Date: 07/18/24 Loc: HO.US Attending Dr: Dipti Desouza MD Ordering Physician: Dipti Desouza MD Date of Service: 07/18/24 Procedure(s): US retroperitoneal comp Accession Number(s): [id number] cc: Dipti Desouza MD; [facility] EXAMINATION: US RETROPERITONEAL COMPLETE (RENAL) CLINICAL INFORMATION: Other symptoms and signs involving the genitourinary system. 3 mm right ureteral stone with hydronephrosis on CT in April 2024. COMPARISON: CT abdomen and pelvis 05/15/2024. Ultrasound abdomen limited 03/13/2023. TECHNIQUE: Real-time imaging of the kidneys and bladder. FINDINGS: RIGHT KIDNEY: 10.5 x 6.3 x 5.6 cm (SAG x AP x TRV). The kidney is normal in size, contour, and echogenicity. Renal cortical thickness is normal. No calculi or focal parenchymal lesions. No hydronephrosis. LEFT KIDNEY: 11.3 x 6.3 x 5.2 cm (SAG x AP x TRV). The kidney is normal in size, contour, and echogenicity. Renal cortical thickness is normal. No calculi or focal parenchymal lesions. No hydronephrosis. BLADDER: Well distended and normal. Bilateral ureteral jets are demonstrated. Prevoid bladder volume is 299.0 mL. Postvoid bladder volume is 19.6 mL. US/US retroperitoneal comp IMPRESSION: Normal retroperitoneal ultrasound. Resolution of previously seen right hydronephrosis. Electronically signed by: Alex Almaguer MD 08/01/2024 10:15 AM EST Dictated By: Alex Almaguer MD Signed By: <Electronically signed by Alex Almaguer MD in OV> 08/01/24 1015 DD/ 1330 TD/TT: 07/18/24 1350 Agent Producer: [facility] External Provider IMG US PROCEDURES Final Result * TSH W/Reflex to FT4 (07/07/2024 10:20 AM EST) TSH reflex Free T4 1.10 0.32 - 4.0 uIU/mL [facility] Blood Venous blood specimen / Unknown 07/07/2024 10:20 AM EST 07/07/2024 12:07 PM EST [facility] LITIGATION ASSOCIATE LAB BLOOD ORDERABLES Final Re sult [facility] [address] [place] [phone] * Albumin, Random Urine W/Creatinine (07/07/2024 10:20 AM EST) Creatinine, Urine 76.65 mg/dL [facility] Microalbumin Urine 7.0 mg/L [facility] Microalbum Creatinine Ratio Ur 9.1 <30 ug/mg cr [facility] Comment:Albumin/Creatinine R atio Reference Ranges: Normal: < 30 ug/mg creatinine Microalbuminuria: 30 - 300 ug/mg creatinineClinical Albuminuria: > 300 ug/mg creatinine Urine 07/07/2024 10:2 0 AM EST 07/07/2024 11:59 AM EST [facility] LAB URINE ORDERABLES Final Re sult Performing Organization Address [facility] Co de Phone Number [facility] [address] [place] [address] [phone] * (ABNORMAL) Lipid Panel, Standard (07/07/2024 10:20 AM EST) Triglycerides 188(H) <150 mg/dL [facility] Comment:Desirable Triglyceri de: less than 150 mg/dLBorderline High Triglyceride 150-199 mg/dLHigh Triglyceride: 200-499 mg/dLVery High Triglyceride: greater than or equal to 5OO mg/dL Cholesterol 167 <200 mg/dL [facility] Comment:Desirable Cholestero l: less than 200 mg/dLBorderline High Cholesterol: 200-239 mg/dLHigh Cholesterol: greater than 239 mg/dL LDL Cholesterol Calculated 84 <100 mg/dL [facility] Comment:Desirable LDL: less than 100 mg/dLNear Optimal/Above Optimal LDL: 110- 129 mg/dLBorderline High LDL: 130-159 mg/dLHigh LDL: 160-189 mg/dLVery High LDL: greater than or equal to 190 mg/dL HDL Cholesterol 46 >40 mg/dL [facility] Comment:Desirable HDL: great er than 40 mg/dL Note: This HDL assay may give artificially low results in patients with liver disease. Blood Venous blood specimen / Unknown 07/07/2024 10:20 AM EST 07/07/2024 12:07 PM EST [facility] LAB BLOOD ORDERABLES Final Re sult Performing Organization Address [facility]/ZIP Co de Phone Number [facility] [address] [place] [address] [phone] * POCT HGB A1C (07/07/2024 9:45 AM EST) Hemoglobin A1C 5.9 4.0 - 6.0 % QC Media Lot # [id number] Lot# Expiration Date [id number] Blood 07/07/2024 9:45 AM EST [facility] LITIGATION ASSOCIATE POINT OF CARE TEST ENTER/EDIT ORDERABLES Final Result * POCT Glucose (07/07/2024 9:45 AM EST) Glucose Blood, POC 136 60 - 200 mg/dL QC Media Lot # [id number] Lot# Expiration Date [id number] Blood Capillary blood specimen / Unknown 07/07/2024 9:45 AM EST [facility] LITIGATION ASSOCIATE POINT OF CARE TEST ENTER/EDIT ORDERABLES Final Result * Pap Smear (06/16/2024 9:15 AM EST) Swab Cervix uteri structure / Unknown 06/16/2024 9:15 AM EST 06/16/2024 2:15 PM EST Narrative [facility] - 06/25/2024 11:08 AM EST ----- ------- Name: Mary Redding ?Age/Sex: 59/F ? : 1965 Unit#: [id number] ?? Attend Dr: ?Re06/16/24 ?Status: PRE REF ? Location: HO.LNP ?Disch: ? ----- ------- SPEC : [id number] ?RECD: 06/16/24 ? STATUS: ??SOUT ? REQ NUM: [id number] ? ASHLYN: 06/16/24 ? SUBM DR: Gisele Rodriguez ? ENTERED: ??06/16/24 ?SP TYPE: Pap Smr ?OTHR : ? ORDERED: ??Pap Smear, PAP path review ? Interpretation ?? Satisfactory for evaluation. ?? ABNORMAL PAP TEST. ?? Satisfactory for evaluation, with atypical squamous cells of undetermined significance ?? (ASC-US). ? HPV High Risk: ??Positive ? HPV Genotyping 16: ??Negative ?? HPV Genotyping 18: ??Negative ?Clinical Information LMP: Postmenopausal Previous PAP test: 2021, + HPV ? Material Received ?? ThinPrep-Cervical ----- ------- Signed (signature on file) Prince Arita MD 06/25/24 1108 ? ----- ------- ? END OF REPORT ? [facility] LAB CYTOLOGY ORDERABLES Final Result [facility] [address] [place] [phone] * HPV mRNA E6/E7 w/Reflex to HPV Genotypes 16, 18/45 (05/25/2023 9:30 AM EDT) HPV nRNA E6/E7 Not Detected Not Detected [facility] Comment:Methodology: Transcr iption-Mediated AmplificationThis assay detects E6/E7 viral messenger RNA (mRNA) from 14high-risk HPV types (16,18,31,33,35,39,45,51,52,56,58,59,66,68).Cervical sources are required for HPV testing.If a vaginal source from a patient who has had atotal hysterectomy with removal of cervix wassubmitted, please contact the testing laboratoryfor alternative testing options.For additional information, please refer [email or web address](This link if provided for information/educational purposes only.)THIS TEST WAS PERFORMED AT:[facility] [place] [id number] DRAPER MD HPV mRNA E6/E7 [facility] HPV 16 RNA [facility] HPV 18/45 RNA [facility] 05/25/2023 9:30 AM EDT 05/28/2023 11:00 AM EST [facility] LAB CYTOLOGY ORDERABLES Final Result Performing Organization Address [facility]/ZIP Co de Phone Number [facility] [address] [place] [phone] * Hepatitis Panel, General (02/14/2023 8:54 AM EDT) Pathologist [facility] Hepatitis A IgM Nonreactive Nonreactive [facility] Comment:IgM antibodies to CALLAHAN V not detected; does not exclude earlyacute or recovered HAV infection. ~Hepatitis B Surface Antibody GRAYZONE Nonreactive [facility] Comment:GRAYZONE: 8.00 mIU/m L TO 11.99 mIU/mLTHE IMMUNE STATUS OF THE INDIVIDUAL SHOULD BE FURTHERASSESSED BY CONSIDERING OTHER FACTORS, SUCH CLINICALSTATUS, FOLLOW-UP TESTING, ASSOCIATED RISK FACTORS, AND THEUSE OF ADDITIONAL DIAGNOSTIC INFORMATION. Hepatitis B Core Antibody Nonreactive Nonreactive [facility] Hepatitis C Antibody Nonreactive Nonreactive [facility] Comment:Antibodies to HCV no t detected; does not exclude early acuteHCV infection. Hepatitis B Surface Ag Negative Negative [facility] Blood 02/14/2023 8:54 AM EDT 02/14/2023 11:21 AM EDT [facility] LAB BLOOD ORDERABLES Final Re sult Performing Organization Address [facility]/ZIP Co de Phone Number [facility] [address] [place] [phone] * HIV-1 RNA, Quantitative, Real-Time PCR (02/05/2023 8:41 AM EDT) Pathologist [facility] HIV RNA PCR Qn Copies NOT DETECTED NOT DETECTED copies/mL [facility] HIV RNA PCR Qn Log Copies NOT DETECTED NOT DETECTED [facility] Comment:Result Units: Log co pies/mLThis test was performed using Real-Time Polymerase ChainReaction.Reportable Range: 20 copies/mL to 10,000,000 copies/mL(1.30 log copies/mL to 7.00 log copies/mL).THIS TEST WAS PERFORMED AT:[facility] [place] [id number] DRAPER MD 02/05/2023 8:41 AM EDT 02/05/2023 11:44 AM EDT [facility] LAB BLOOD ORDERABLES Final Re sult [facility] [address] [place] [phone] [phone] * (ABNORMAL) Hm Colonoscopy (03/23/2022) Colonoscopy Abnormal(A ) Normal Historical Provider HEALTH MAINTENANCE Final Result * Mammography Report 1 (06/29/2021 4:18 PM EST) Anatomical Region Laterality Modality Breast Bilateral Mammography 06/29/2021 4:18 PM EST Narrative 06/30/2021 1:43 PM EST Refer to the Notes tab for result details [facility] Procedure: Mammography Report 1 Procedure Note Provider, Daniella, - 10/15/2022 Refer to the Notes tab for result details [facility] Procedure: Mammography Report 1 Julisa Klein MD IMG BI PROCEDURES Final Resu lt from Last 3 Months or Most Recently Relevant to Health Maintenance Insurance [employer] [place] [facility] AD[place] Care Teams Bakery Worker Conveyor Line Relationship Specialty Start Date End Date Gisele Rodriguez, LARA [address] [place] [phone] PCP - General Family Medicine 08/16/22
--- OUTSIDE RECORDS SUMMARY | 2024-08-18 19:32 | XMS_ITS | Encounter Summary ---
Author Organization [employer] Address [address] [place] [address] Care Team Providers Care Principal Technical Specialist Name Role Phone Gisele Rodriguez DIRECTOR OF RESEARCH AND DEVELOPMENT Primary Care Provider [phone] Encounter Details Date Type Department Care Team ([facility] st Contact Info) Description 06/08/2023 Abstract [facility] MEDICINE [address] [place], [place] [phone] Amelia Reyes Social History Tobacco Use Types Packs/Day Years Used Date Smoking Tobacco: Former Cigarettes Passive Smoke Exposure: Past Smokeless Tobacco: Never Alcohol Use Standard Drinks/Week Comments Never 0 (1 standard drink = 0.6 oz pur e alcohol) Depression Answer Date Recorded Patient Health Questionnaire-9 Score 0 04/18/2023 Housing Stability Answer Date Recorded What is your housing situation today? I have rosalieenrique lynne 05/11/[address] you [...] from getting things needed for daily living? No 05/11/2023 Utilities Answer Date Recorded In the past 12 months, has t he electric, gas, oil or water company threatened to shut off services in your home? No 05/11/2023 Depression Answer Date Recorded Patient Health Questionnaire-2 Score 0 04/18/2023 Comments Unknown Sex and Gender Information Value [...] Description 09/17/2024 2:30 PM EST Office Visit [facility] OPTOMETRY [address] [place] [address] BernardKigna león, OD [address] [place] [address] documented as of this encounter Visit Diagnoses Not on filedocumented in this encounter Additional Health Concerns Assessment Noted Time PHQ-9 Depression Total Score: 0 04/18/20 10:13 AM EDT documented as of this encounter Care Teams Principal Technical Specialist Relationship Specialty Start Date End Date Gisele Rodriguez FNP [address] [place] [address] PCP - General Family Medicine 08/16/22 documented as of this encounter
--- OUTSIDE RECORDS SUMMARY | 2024-08-18 19:32 | XMS_ITS | Encounter Summary ---
Author Organization [employer] [facility] Address [address] [place] [address] [address] [place] [address] Care Team Providers Care Developer Designer Name Role Phone Julisa Klein MD Primary Care Provider Gisele Neves Primary Care Provider [phone] Encounter Details Date Type Department Care Team (Latest Contact Info) Description 12/14/2021 Abstract [facility] CONVERSIONS Dental, Provider, DDS Social History Tobacco [...] Description 09/17/2024 2:30 PM EST Office Visit [facility] OPTOMETRY [address] [place] [address] Kinga Wagner, OD [address] [place] [address] documented as of this encounter Visit Diagnoses Not on filedocumented in this encounter Care Teams Developer Designer Relationship Specialty Start Date End Date Julisa Klein MD PCP - General Family Medicine 06/25/19 08/15/22 Gisele Rodriguez FNP [address] [place] [address] PCP - General Family Medicine 08/16/22 documented as of this encounter
== END 2024-08-18 15:32 | disposition home or self-care (01) ==
LOC: HO.MAMMO 15:31
PROVIDERS: PCP Registered Nurse; Visit Provider Registered Nurse
DX: Z12.31 Encounter for screening mammogram for malignant neoplasm of breast (principal)
CPT/HCPCS: 77063; 77067

== ENCOUNTER 2024-09-17 10:37 | Outpatient (REF) | payer MEDICAID, SELFPAY ==
--- OUTSIDE RECORDS SUMMARY | 2024-09-17 14:47 | XMS_ITS | Encounter Summary ---
Author Organization [employer] Address [address] [facility] 7 [place] [address] Care Team Providers Care Supervisor Painting Shipyard Name Role Phone [facility] Primary Care Provider [phone] Reason for Visit * Reason Comments Med Refill Encounter Details Date Type Department Care Team ([facility] Contact Info) Description 08/21/2024 Refill [facility] MED & PEDS [address] [place], [place] [phone] [facility] [address] [place] [address] Essential hypertension Social History Tobacco Use Types [...] as of this encounter Plan of Treatment Not on file documented as of this encounter Visit Diagnoses Diagnosis Essential hypertension Unspecified essential hypertension documented in this encounter Additional Health Concerns Assessment Noted Time PHQ-9 Depression Total Score: 0 07/07/20 24 9:44 AM EST documented as of this encounter Care Teams Supervisor Painting Shipyard Relationship Specialty Start Date End Date Gisele Rodriguez FNP [address] [place] [phone] PCP - General Family Medicine 08/16/22 documented as of this encounter
--- OUTSIDE RECORDS SUMMARY | 2024-09-17 14:47 | XMS_ITS | Encounter Summary ---
Author Organization [employer] Address [address] [place] [address] 7 [place] [address] Care Team Providers Care Power Plant Engineer Name Role Phone Julisa Klein MD Primary Care Provider Angélica brito [facility] Primary Care Provider [phone] Encounter Details Date Type Department Care Team (Latest Contact Info) Description 12/14/2021 Abstract [facility] CONVERSIONS Dental, Provider, DDS Social History [...] on filedocumented in this encounter Care Teams Power Plant Engineer Relationship Specialty Start Date End Date Julisa Klein MD PCP - General Family Medicine 06/25/19 08/15/22 [facility] [address] [place] [phone] PCP - General Family Medicine 08/16/22 documented as of this encounter
--- OUTSIDE RECORDS SUMMARY | 2024-09-17 14:47 | XMS_ITS | Encounter Summary ---
Author Organization [employer] Address 75 [facility] 7 [place] [address] Care Team Providers Care Electric Needle Specialist Name Role Phone [facility] Primary Care Provider [phone] Reason for Visit * Reason Comments Med Refill Encounter Details Date Type Department Care Team ([facility] Contact Info) Description 09/04/2024 Refill [facility] MEDICINE [address] [place], [place] [phone] [facility] [address] [place] [address] Chronic pain of both knees Social History [...] documented as of this encounter Care Teams Electric Needle Specialist Relationship Specialty Start Date End Date Gisele Rodriguez FNP [address] [place] [address] PCP - General Family Medicine 08/16/22 documented as of this encounter
--- OUTSIDE RECORDS SUMMARY | 2024-09-17 14:47 | XMS_ITS | Encounter Summary ---
Author Organization [employer] Address [address] [place] [address] 7 [place] [address] Care Team Providers Care Protective Services Officer Name Role Phone Julisa Klein MD Primary Care Provider Angélica brito [facility] Primary Care Provider Encounter Details Date Type Department Care Team (Latest Contact Info) Description 05/29/2019 Abstract [facility] CONVERSIONS Dental, Provider, DDS Social History [...] on filedocumented in this encounter Care Teams Protective Services Officer Relationship Specialty Start Date End Date Julisa Klein MD PCP - General Family Medicine 06/25/19 08/15/22 [facility] [address] [place] [phone] PCP - General Family Medicine 08/16/22 documented as of this encounter
--- OUTSIDE RECORDS SUMMARY | 2024-09-17 14:47 | XMS_ITS | Encounter Summary ---
Author Organization [employer] Address 75 [facility] 7t [place] [address] Care Team Providers Care Paint Brush Maker Name Role Phone Gisele Rodriguez HOME BASED ASSISTANT Primary Care Provider [phone] Encounter Details Date Type Department Care Team [...] documented as of this encounter Care Teams Paint Brush Maker Relationship Specialty Start Date End Date Gisele Rodriguez FNP [address] [place] [phone] PCP - General Family Medicine 08/16/22 documented as of this encounter
--- OUTSIDE RECORDS SUMMARY | 2024-09-17 14:47 | XMS_ITS | Encounter Summary ---
Author Organization [employer] Address [address] [facility] [address] 7t [place] [address] Care Team Providers Care Insulation Sprayer Name Role Phone Gisele Rodriguez [facility] Primary Care Provider [phone] Encounter Details Date Type Department Care Team ([facility] st Contact Info) Description 06/08/2023 Abstract [facility] MEDICINE [address] [place], [place] [phone] Amelia Reyes Social History Tobacco Use Types [...] documented as of this encounter Care Teams Insulation Sprayer Relationship Specialty Start Date End Date Gisele Rodriguez FNP [address] [place] [address] PCP - General Family Medicine 08/16/22 documented as of this encounter
--- OUTSIDE RECORDS SUMMARY | 2024-09-17 14:47 | XMS_ITS | Encounter Summary ---
Author Organization [employer] Address 75 [facility] 7t [place] [address] Care Team Providers Care Process Automation Engineer Name Role Phone Gisele Rodriguez [facility] Primary Care Provider [phone] Encounter Details Date Type Department Care Team (Latest Contact Info) Description 09/17/2024 Travel Social History Tobacco Use Types Packs/Day [...] documented as of this encounter Care Teams Process Automation Engineer Relationship Specialty Start Date End Date Gisele Rodriguez FNP [address] [place] [address] PCP - General Family Medicine 08/16/22 documented as of this encounter
--- OUTSIDE RECORDS SUMMARY | 2024-09-17 14:47 | XMS_ITS | Clinical Summary ---
Author Organization [email or web address] Address [address] [place] [address] 7 [place] [address] Care Team Providers Care Property Underwriter Name Role Phone Gisele Rodriguez [facility] Primary Care Provider [phone] Allergies Active Allergy Reactions Criticality Noted Date Comments Lisinopril Cough 08/21/2018 Penicillin V 08/04/2010 Other reaction(s): unspecified Medications albuterol 108 (90 Base) MCG/ACT inhalerIndication s:Shortness of breath Inhale 2 puffs every 6 (six) hours if needed for wheezing. 18 g 11 01/16/20 23 Active Alcohol Swabs (Alcohol Prep) padsIndications:T ype 2 diabetes mellitus without complication, without long-term current use of insulin ([facility]) Use one pad each to prep skin prior to injection as directed 100 each 11 01/16/20 23 Active Lancets 33G miscIndications:T ype 2 diabetes mellitus without complication, without long-term current use of insulin ([facility]) Use as directed to check blood sugar four times daily 100 each 3 01/16/20 23 Active Blood Glucose Monitoring Suppl (GNP Easy Touch Glucose Meter) deviceIndications :Type 2 diabetes mellitus without complication, without long-term current use of insulin ([facility]) Use as directed to check blood sugar four times daily 1 each 01/16/20 23 Active glucose blood test stripIndications: Type 2 diabetes mellitus without complication, without long-term current use of insulin ([facility]) Use as directed to check blood sugar [...] Routine age 65 Eye Exam: 2022 with [facility] Assessment & Plan (08/03/2023 9:35 AM EST): [...] Encounters Date Type Department Care Team Description 09/17/2024 Travel 09/10/2024 Travel 09/04/2024 Refill [facility] MEDICINE 230 [place] [address] Gisele Rodriguez FNP Chronic pain of both knees 08/21/2024 Refill [facility] MED & PEDS [address] [place] [address] Gisele Rodriguez FNP Essential hypertension 07/10/2024 Telephone [facility] MEDICINE [address] [place], [place] [phone] Gisele Rodriguez FNP Letter for Jury Duty [...] the letter, but she does not speak Welsh, and would like for that to be added to the letter. She would like for it to be faxed, and a copy mailed to her home.) 07/07/2024 9:45 AM EST Office Visit [facility] MEDICINE [address] [place] [address] [facility] Type 2 diabetes mellitus without complication, without long-term current use of insulin ([facility]) (Primary Dx); Palpitations; Encounter for screening mammogram for breast cancer; Atypical squamous cells of undetermined significance on cytologic smear of cervix (ASC-US) 07/07/2024 Travel 06/30/2024 Travel 06/25/2024 Orders Only [facility] [address] [place] [address] [facility] Atypical squamous cells of undetermined significance on [...] 07/07/2024 9:43 AM EST Plan of Treatment Health Maintenance Due Date Last Done Comments [...] Use Screening 10/25/2024 10/26/2023 Diabetes: Hemoglobin A1C 01/05/202507/07/2 024, 04/02/2024, 10/26/2023, Additional history exists Colonoscopy 03/23/2025 03/23/2022 Colorectal Cancer Screening 03/23/2025 Diabetes: Foot Exam 04/02/2025 04/02/2024, 04/02/2024, 04/02/2024, Additional history exists Eye Exam 04/27/2025 04/27/2023, 1012/2022, 04/27/2023, Additional history exists Cervical Cancer Screening 06/16/2025 Pap Smear 06/16/2025 06/16/2024, 110 09/2022, 04/21/2022 Depression Screening 07/07/2025 07/07/2024, 07/07/20 Diabetes: Urine Protein Screening 07/07/2025 07/07/2024, 04/15/2020 Lipid Panel 07/07/2025 07/07/2024, 07/1 01/2023, 05/16/2021, Additional history exists Tobacco Screening 07/07/2025 07/07/2024 Mammogram 08/18/2025 08/18/2024, 120 02/2021, 05/31/2018 Dental X-Ray: Full Mouth 08/29/2025 [...] EST Narrative 08/27/2024 12:34 PM EST ? [facility] ? [address] ?[place] [address] ? Mammography Report ? Signed ? Patient: Canalesleonel Lombardo,Mary ?MR#: M ?? [id number] ? : 1965 ?Acct:[id number] ? Age/Sex: 59 / F ?ADM Date: 08/18/24 ? Loc: HO.MAMMO ? Attending Dr: Gisele Rodriguez PUBLIC POLICY ASSOCIATE ? Ordering Physician: Gisele Rodriguez PUBLIC POLICY ASSOCIATE ?Results: 1Nega ?? tive ? Date of Service: 08/18/24 ?Follow Up: 1 Year From Orig ?? inal Mammogram ? Procedure(s): MM tomosynthesis screening BI ?? Accession Number(s): [id number] ? cc: Gisele Rodriguez PUBLIC POLICY ASSOCIATE ? EXAMINATION: ?? MM SCREENING DIGITAL BREAST [...] ??Dannielle White DO ??08/27/2024 12:29 PM EST ?? RP ? Dictated By: ?Dannielle White DO ? Signed By: ?<Electronically signed by Dannielle White, DO in OV> ? 08/27/24 1229 ? DD/ 1535 ? TD/TT: 08/18/24 1554 ? Installment Loan Collector: ? Procedure Note Donbrianter, Image - 08/27/2024 [facility] [address] [place] [address] Mammography Report Signed Patient: Mary ReddingMR#: M [id number] : 1965Acct:[id number] Age/Sex: 59 / FADM Date: 08/18/24 Loc: MAMMO Attending Dr: Gisele Rodriguez PUBLIC POLICY ASSOCIATE Ordering Physician: Gisele Rodriguez FNPResults: 1Nega tive Date of Service: 08/18/24Follow Up: 1 Year From Orig inal Mammogram Procedure(s): MM tomosynthesis screening BI Accession Number(s): [id number] cc: Gisele Rodriguez PUBLIC POLICY ASSOCIATE EXAMINATION: MM SCREENING DIGITAL BREAST TOMOSYNTHESIS, BILATERAL [...] 08/27/2024 12:29 PM EST Dictated By: Dannielle White DO Signed By: <Electronically signed by Dannielle White DO in OV> 08/27/24 1229 DD/ 1535 TD/TT: 08/18/24 1554 Installment Loan Collector: [facility] PUBLIC POLICY ASSOCIATE IMG BI PROCEDURES Edited Resu lt - Final * US Retroperitoneal Complete (07/18/2024 1:30 PM EST) Anatomical Region Laterality Modality Ultrasound 07/18/2024 1:30 PM EST Narrative 08/01/2024 10:19 AM EST ? [facility] ?[address] ?[place] [address] ? Ultrasound Report ? Signed ? Patient: CanalesMary Cordon ?MR#: M ?? [id number] ? : 1965 ?Acct:[id number] ? Age/Sex: 59 / F ?ADM Date: 07/18/24 ? Loc: HO.US ? Attending Dr: Dipti Desouza MD ? Ordering Physician: Dipti Desouza MD ?? Date of Service: 07/18/24 ?? Procedure(s): US retroperitoneal comp ?? Accession Number(s): [id number] ? cc: Dipti Desouza MD; Gisele Rodriguez ? EXAMINATION: ?? US RETROPERITONEAL COMPLETE (RENAL) [...] DD/ 1330 ? TD/TT: 07/18/24 1350 ? Installment Loan Collector: ? Procedure Note Freddymaxinenanmarycruz, Image - 08/01/2024 [place] [address] Ultrasound Report Signed Patient: Mary Redding#: M [id number] : 1965Acct:[id number] Age/Sex: 59 / FADM Date: 07/18/24 Loc: HO.US Attending Dr: Dipti Desouza MD Ordering Physician: Dipti Desouza MD Date of Service: 07/18/24 Procedure(s): US retroperitoneal comp Accession Number(s): [id number] cc: Dipti Desouza MD; [facility] EXAMINATION: US RETROPERITONEAL COMPLETE (RENAL) CLINICAL [...] 08/01/24 1015 DD/ 1330 TD/TT: 07/18/24 1350 Installment Loan Collector: [facility] External Provider IMG US PROCEDURES Final Result * TSH W/Reflex to FT4 (07/07/2024 10:20 AM EST) TSH reflex Free T4 1.10 0.32 - 4.0 uIU/mL [facility] Blood Venous blood specimen / Unknown 07/07/2024 10:20 AM EST 07/07/2024 12:07 PM EST [facility] PUBLIC POLICY ASSOCIATE LAB BLOOD ORDERABLES Final Re sult [facility] [address] [place] [phone] * Albumin, Random Urine W/Creatinine (07/07/2024 10:20 AM EST) Creatinine, Urine 76.65 mg/dL [facility] Microalbumin Urine 7.0 mg/L [facility] Microalbum Creatinine Ratio Ur 9.1 <30 ug/mg cr [facility] Comment:Albumin/Creatinine R atio Reference Ranges: Normal: < 30 ug/mg creatinine Microalbuminuria: 30 - 300 ug/mg creatinineClinical Albuminuria: > 300 ug/mg creatinine Urine 07/07/2024 10:2 0 AM EST 07/07/2024 11:59 AM EST [facility] LAB URINE ORDERABLES Final Re sult [facility] [address] [place] [address] [phone] * (ABNORMAL) Lipid Panel, Standard (07/07/2024 10:20 AM EST) Triglycerides 188(H) <150 mg/dL [facility] Comment:Desirable Triglyceri de: less than 150 mg/dLBorderline High Triglyceride 150-199 mg/dLHigh Triglyceride: 200-499 mg/dLVery High Triglyceride: greater than or equal to 5OO mg/dL Cholesterol 167 <200 mg/dL [facility] Comment:Desirable Cholestero l: less than 200 mg/dLBorderline High Cholesterol: 200-239 mg/dLHigh Cholesterol: greater than 239 mg/dL LDL Cholesterol Calculated 84 <100 mg/dL [facility] Comment:Desirable LDL: less than 100 mg/dLNear Optimal/Above Optimal LDL: 110- 129 mg/dLBorderline High LDL: 130-159 mg/dLHigh LDL: 160-189 mg/dLVery High LDL: greater than or equal to 190 mg/dL HDL Cholesterol 46 >40 mg/dL [facility] Comment:Desirable HDL: great er than 40 mg/dL Note: This HDL assay may give artificially low results in patients with liver disease. Blood Venous blood specimen / Unknown 07/07/2024 10:20 AM EST 07/07/2024 12:07 PM EST [facility] LAB BLOOD ORDERABLES Final Re sult [facility] [address] [place] [phone] * POCT HGB A1C (07/07/2024 9:45 AM EST) Hemoglobin A1C 5.9 4.0 - 6.0 % QC Media Lot # [id number] Lot# Expiration Date [id number] Blood 07/07/2024 9:45 AM EST [facility] POINT OF CARE TEST ENTER/EDIT ORDERABLES Final Result * POCT Glucose (07/07/2024 9:45 AM EST) Glucose Blood, POC 136 60 - 200 mg/dL QC Media Lot # [id number] Lot# Expiration Date [id number] Blood Capillary blood specimen / Unknown 07/07/2024 9:45 AM EST [facility] POINT OF CARE TEST ENTER/EDIT ORDERABLES Final Result * Pap Smear (06/16/2024 9:15 AM EST) Swab Cervix uteri structure / Unknown 06/16/2024 9:15 AM EST 06/16/2024 2:15 PM EST Narrative [facility] - 06/25/2024 11:08 AM EST ----- ------- Name: Canales Lombardo,Mary ?Age/Sex: 59/F ? : 1965 Unit#: [id number] ?? Attend Dr: ?Re06/16/24 ?Status: PRE REF ? Location: HO.LNP ?Disch: ? ----- ------- SPEC : [id number] ?RECD: 06/16/248 ? STATUS: ??SOUT ? REQ NUM: [id number] ? ASHLYN: 06/16/24 ? SUBM DR: Gisele Rodriguez ? ENTERED: ??06/16/249 ?SP TYPE: Pap Smr ?OTHR DR: ? ORDERED: ??Pap Smear, PAP path review [...] Signed (signature on file) Prince Arita MD 06/25/248 ? ----- ------- ? END OF REPORT ? [facility] PUBLIC POLICY ASSOCIATE LAB CYTOLOGY ORDERABLES Final Result [facility] [address] [place] [address] [phone] * HPV mRNA E6/E7 w/Reflex to HPV Genotypes 16, 18/45 (05/25/2023 9:30 AM EDT) HPV nRNA E6/E7 Not Detected Not Detected [facility] Comment:Methodology: Transcr iption-Mediated AmplificationThis assay detects E6/E7 viral messenger RNA (mRNA) from 14high-risk HPV types (16,18,31,33,35,39,45,51,52,56,58,59,66,68).Cervical sources are required for HPV testing.If a vaginal source from a patient who has had atotal hysterectomy with removal of cervix wassubmitted, please contact the testing laboratoryfor alternative testing options.For additional information, please refer tohttp://education.Mixers/faq/RHT414x4(This link if provided for information/educational purposes only.)THIS TEST WAS PERFORMED AT:[facility] [place] [phone] DRAPER MD HPV mRNA E6/E7 [facility] HPV 16 RNA [facility] HPV 18/45 RNA [facility] 05/25/2023 9:30 AM EDT 05/28/2023 11:00 AM EST [facility] LAB CYTOLOGY ORDERABLES Final Result [facility] [address] [place] [phone] * Hepatitis Panel, General (02/14/2023 8:54 AM EDT) Hepatitis A IgM Nonreactive Nonreactive [facility] Comment:IgM antibodies to CALLAHAN V not detected; does not exclude earlyacute or recovered HAV infection. ~Hepatitis B Surface Antibody GRAYZONE Nonreactive [facility] Comment:GRAYZONE: 8.00 mIU/m L TO 11.99 mIU/mLTHE IMMUNE STATUS OF THE INDIVIDUAL SHOULD BE FURTHERASSESSED BY CONSIDERING OTHER FACTORS, SUCH CLINICALSTATUS, FOLLOW-UP TESTING, ASSOCIATED RISK FACTORS, AND THEUSE OF ADDITIONAL DIAGNOSTIC INFORMATION. Hepatitis B Core Antibody Nonreactive Nonreactive [facility] Hepatitis C Antibody Nonreactive Nonreactive [facility] Comment:Antibodies to HCV no t detected; does not exclude early acuteHCV infection. Hepatitis B Surface Ag Negative Negative [facility] Blood 02/14/2023 8:54 AM EDT 02/14/2023 11:21 AM EDT [facility] LAB BLOOD ORDERABLES Final Re sult Performing Organization Address [facility] Co de Phone Number [facility] [address] [place] [phone] * HIV-1 RNA, Quantitative, Real-Time PCR (02/05/2023 8:41 AM EDT) HIV RNA PCR Qn Copies NOT DETECTED NOT DETECTED copies/mL [facility] HIV RNA PCR Qn Log Copies NOT DETECTED NOT DETECTED [facility] Comment:Result Units: Log co pies/mLThis test was performed using Real-Time Polymerase ChainReaction.Reportable Range: 20 copies/mL to 10,000,000 copies/mL(1.30 log copies/mL to 7.00 log copies/mL).THIS TEST WAS PERFORMED AT:[facility] [place] [phone] DRAPER MD 02/05/2023 8:41 AM EDT 02/05/2023 11:44 AM EDT [facility] LAB BLOOD ORDERABLES Final Re sult Performing Organization Address [facility] Co de Phone Number [facility] [address] [place] [phone] * (ABNORMAL) Colonoscopy (03/23/2022) Colonoscopy Abnormal(A ) Normal Historical Provider HEALTH MAINTENANCE Final Result from Last 3 Months or Most Recently Relevant to Health Maintenance Insurance [facility] C3 HSN FULL DENTAL-[facility] MEDICAID STAND ADULT Care Teams Property Underwriter Relationship Specialty Start Date End Date Gisele Rodriguez FNP [address] [place] [phone] PCP - General Family Medicine 08/16/22
== END 2024-09-17 10:38 | disposition home or self-care (01) ==
LOC: HO.LNP 10:37
PROVIDERS: PCP Registered Nurse; Visit Provider Obstetrics & Gynecology
DX: R87.610 Atypical squamous cells of undetermined significance on cytologic smear of cervix (ASC-US) (principal); R87.810 Cervical high risk human papillomavirus (HPV) DNA test positive
CPT/HCPCS: 57454; 88305

== ENCOUNTER 2024-09-17 10:37 | Outpatient (AMB) | payer MEDICAID, SELFPAY ==
[2024-09-17 10:39] VITALS: BP 128/76; BMI 35.8
--- NOTE | 2024-09-17 10:39 | MHC.OFFVIS ---
Vital Signs 09/17/24 10:39 Height 5 ft 2 in Weight 196 lb BMI 35.8 BP 128/76 Intake Visit Reasons: ASC-US/Colpo Beach Lifeguard Required: Yes Beach Lifeguard Language: Supervisor Hot Dip Tinning Services: Beach Lifeguard Present (in person) Beach Lifeguard Name: Petty PATE Information Interpreted: non-clinical & clinical Lead Injection Mold Technician: Lead Injection Mold Technician Present (Petty PATE) Accompanied by: Self / Same As Patient Allergies latex Allergy (Intermediate, Verified 09/17/24 11:25) Itching penicillin V Allergy (Mild, Verified 09/17/24 11:25) Abdominal Pain lisinopril Allergy (Unknown, Verified 09/17/24 11:25) cough Post menopausal: Yes HPI Comments Details: Presenting referred for abnormal Pap smear showing ASCUS HPV positive, HPV 16/18 negative [facility] Medical History Mild intermittent asthma DM type 2 (diabetes mellitus, type 2) GERD (gastroesophageal reflux disease) HTN (hypertension) Vitamin D deficiency Hyperlipidemia Anxiety Allergic rhinitis Depression Dyspepsia Surgical History History of esophagogastroduodenoscopy (EGD) Hx of colonoscopy Family History Unknown No family history of colorectal cancer Social History Household Members: Spouse Patient Tobacco Use Status: Former Tobacco user Tobacco use type: Cigarette Years Smoked: 3 Current occupational status: unemployed Review of Systems Const All systems reviewed & are unremarkable except as noted in HPI and below Reports as per HPI and Reports no additional complaints GI Reports no additional complaints Reports no additional complaints Office Procedures Colposcopy Colposcopy: Pre-Procedure Counseling: Before beginning the procedure, I conducted comprehensive counseling with the patient. We thoroughly discussed the procedure itself, including its details, alternatives, and all associated risks. This included but not limited to the following complications such as bleeding, infection, and injury to the vagina, bladder, and vessels, as well as the potential need for transfusion with all its associated risks. Subsequently, the patient sign the consent. Pap smear result: Ascus/HPV positive, HPV 16/18 negative Procedure: During the procedure, the following steps were performed: A speculum was inserted, and acetic acid was applied. Colposcopy was conducted, allowing visualization of the transformation zone. Acetowhite lesions were identified at the 6+9+4 o'clock position. Cervical biopsies were obtained from the 6+9+4 o'clock position, followed by an endocervical curettage (ECC). Vaginoscopy of the upper vagina revealed no evidence of aceto-white lesions. Hemostasis was achieved using Monsel solution, and the patient tolerated the procedure well. Post-Procedure Instructions: The patient was advised to promptly contact the office or the after hours answering service or go to the emergency room if experiencing a temperature exceeding 100.4?F, abdominal pain, nausea/vomiting, or bleeding. Additionally, the patient was instructed to abstain from vaginal intercourse and bathtub use. The patient confirmed understanding of these instructions. Discharge Instructions: The patient was instructed to schedule a follow-up appointment in 2 weeks for further evaluation and management. Please note that this note was generated using a voice recognition program, and errors may have occurred during supervisor nurse. [id number] of cervix including upper vagina with biopsy and ECC Procedure code (CPT) selection complete Assessment & Plan Assessment & Plan (1) ASCUS with positive high risk HPV cervical: Code(s): R87.610 - Atypical squamous cells of undetermined significance on cytologic smear of cervix (ASC-US); R87.810 - Cervical high risk human papillomavirus (HPV) DNA test positive Category: Medical Plan: Discussed with the patient the result of her abnormal pap, its significance, risk of progression, persistence, and regression. the false positive/negative rate of a Pap smear as a screening test in detecting cervical cancer and the indication for a diagnostic test -colposcopy, biopsy, endocervical curettage. The patient verbalized understanding and agreed with the plan, all questions answered. Colpo/biopsy/ECC done, see procedure note Orders: Orders AMB Colposcopy Today R87.610 - Atypical squamous cells of undetermined significance on cytologic smear of cervix (ASC-US), R87.810 - Cervical high risk human papillomavirus (HPV) DNA test positive Coding Level of Care Code Procedure Only Diagnoses ASCUS with positive high risk HPV cervical R87.610; R87.810 CPT Codes Colposcopy - CPT: 63331-Vfvccswig of cervix including upper vagina with biopsy and ECC ([id number])
--- OUTSIDE RECORDS SUMMARY | 2024-09-17 13:04 | XMS_ITS | Encounter Summary ---
Author Organization [employer] Address [address] [facility] 7 [place] [address] Care Team Providers Care Viticulturist Name Role Phone [facility] Primary Care Provider [phone] Reason for Visit * Reason Comments Med Refill Encounter Details Date Type Department Care Team ([facility] Contact Info) Description 09/04/2024 Refill [facility] MEDICINE [address] [place], [place] [phone] [facility] [address] [place] [address] Chronic pain of both knees Social History Tobacco Use Types Packs/Day Years [...] Description 09/17/2024 2:30 PM EST Office Visit [facility] OPTOMETRY [address] [place] [address] Kinga Wagner, OD [address] [place] [address] documented as of this encounter Visit Diagnoses Diagnosis Chronic pain of both knees documented in this encounter Additional Health Concerns Assessment Noted Time PHQ-9 Depression Total Score: 0 07/07/20 24 9:44 AM EST documented as of this encounter Care Teams Viticulturist Relationship Specialty Start Date End Date Gisele Rodriguez FNP [address] [place] [address] PCP - General Family Medicine 08/16/22 documented as of this encounter
--- OUTSIDE RECORDS SUMMARY | 2024-09-17 13:04 | XMS_ITS | Encounter Summary ---
Author Organization [facility] Address [address] [place] [address] [address] [place] [address] Care Team Providers Care Ash Kier Boiler Name Role Phone Julisa Klein MD Primary Care Provider Gisele Neves MICROFILM PROCESSOR Primary Care Provider [phone] Encounter Details Date Type Department Care Team (Latest Contact Info) Description 05/29/2019 Abstract [facility] CONVERSIONS Dental, Provider, DDS Social History [...] Description 09/17/2024 2:30 PM EST Office Visit [facility] OPTOMETRY [address] [place] [address] BernardKinga león, OD [address] [place] [address] documented as of this encounter Visit Diagnoses Not on filedocumented in this encounter Care Teams Ash Kier Boiler Relationship Specialty Start Date End Date Julisa Klein MD PCP - General Family Medicine 06/25/19 08/15/22 Gisele Rodriguez MICROFILM PROCESSOR [address] [place] [address] PCP - General Family Medicine 08/16/22 documented as of this encounter
--- OUTSIDE RECORDS SUMMARY | 2024-09-17 13:04 | XMS_ITS | Encounter Summary ---
Author Organization [employer] Address [address] [facility] 7 [place] [address] Care Team Providers Care Bunk House Worker Name Role Phone [facility] Primary Care Provider [phone] Reason for Visit * Reason Comments Med Refill Encounter Details Date Type Department Care Team ([facility] Contact Info) Description 08/21/2024 Refill [facility] MED & PEDS [address] [place], [place] [phone] [facility] [address] [place] [address] Essential hypertension Social History Tobacco Use Types Packs/Day Years [...] Description 09/17/2024 2:30 PM EST Office Visit [facility] [address] [place] [address] Kinga Wagner, OD [address] [place] [address] documented as of this encounter Visit Diagnoses Diagnosis Essential hypertension Unspecified essential hypertension documented in this encounter Additional Health Concerns Assessment Noted Time PHQ-9 Depression Total Score: 0 07/07/20 24 9:44 AM EST documented as of this encounter Care Teams Bunk House Worker Relationship Specialty Start Date End Date Gisele Rodriguez FNP [address] [place] [address] PCP - General Family Medicine 08/16/22 documented as of this encounter
--- OUTSIDE RECORDS SUMMARY | 2024-09-17 13:04 | XMS_ITS | Encounter Summary ---
Author Organization [employer] Address [address] [facility] [address] [place] [address] Care Team Providers Care Inbound Sales Manager Name Role Phone Gisele Rodriguez ANSWERER Primary Care Provider [phone] Encounter Details Date Type Department Care Team (Latest Contact Info) Description 09/10/2024 Travel Social History Tobacco Use Types Packs/Day Years [...] Description 09/17/2024 2:30 PM EST Office Visit [facility] OPTOMETRY [address] [place] [address] Bernard, Kinga, OD [address] [place] [address] documented as of this encounter Visit Diagnoses Not on filedocumented in this encounter Additional Health Concerns Assessment Noted Time PHQ-9 Depression Total Score: 0 07/07/20 24 9:44 AM EST documented as of this encounter Care Teams Inbound Sales Manager Relationship Specialty Start Date End Date Gisele Rodriguez FNP [address] [place] [address] PCP - General Family Medicine 08/16/22 documented as of this encounter
--- OUTSIDE RECORDS SUMMARY | 2024-09-17 13:04 | XMS_ITS | Encounter Summary ---
Author Organization [facility] Address [address] [place] [address] [address] [place] [address] Care Team Providers Care Manufacturing Technology Analyst Name Role Phone Julisa Klein MD Primary Care Provider Gisele Neves Primary Care Provider [phone] Encounter Details Date Type Department Care Team (Latest Contact Info) Description 12/14/2021 Abstract [facility] CONVERSIONS Dental, Provider, DDS Social History Tobacco [...] Description 09/17/2024 2:30 PM EST Office Visit [facility] OPTOMETRY [address] [place] [address] Kinga Wagner, OD [address] [place] [address] documented as of this encounter Visit Diagnoses Not on filedocumented in this encounter Care Teams Manufacturing Technology Analyst Relationship Specialty Start Date End Date Julisa Klein MD PCP - General Family Medicine 06/25/19 08/15/22 Gisele Rodriguez FNP [address] [place] [address] PCP - General Family Medicine 08/16/22 documented as of this encounter
--- OUTSIDE RECORDS SUMMARY | 2024-09-17 13:04 | XMS_ITS | Encounter Summary ---
Author Organization [employer] Address [address] [place] [address] Care Team Providers Care Dairy Supplies Sales Representative Name Role Phone Gisele Rodriguez STORE RECEIVER Primary Care Provider [phone] Encounter Details Date Type Department Care Team ([facility] st Contact Info) Description 06/08/2023 Abstract [facility] MEDICINE [address] [place], [place] [phone] Amelia Reyes Social History Tobacco Use Types [...] Description 09/17/2024 2:30 PM EST Office Visit [facility] OPTOMETRY [address] [place] [address] BernardKinga león, OD [address] [place] [address] documented as of this encounter Visit Diagnoses Not on filedocumented in this encounter Additional Health Concerns Assessment Noted Time PHQ-9 Depression Total Score: 0 04/18/20 10:13 AM EDT documented as of this encounter Care Teams Dairy Supplies Sales Representative Relationship Specialty Start Date End Date Gisele Rodriguez FNP [address] [place] [address] PCP - General Family Medicine 08/16/22 documented as of this encounter
--- OUTSIDE RECORDS SUMMARY | 2024-09-17 13:04 | XMS_ITS | Clinical Summary ---
Author Organization [employer] Address [address] [place] [address] 7 [place] [address] Care Team Providers Care It Software Developer Name Role Phone Gisele Rodriguez [facility] Primary Care Provider [phone] Allergies Active Allergy Reactions Criticality Noted Date Comments Lisinopril Cough 08/21/2018 Penicillin V 08/04/2010 Other reaction(s): unspecified Medications albuterol 108 (90 Base) MCG/ACT inhalerIndication s:Shortness of breath Inhale 2 puffs every 6 (six) hours if needed for wheezing. 18 g 11 01/16/20 23 Active Alcohol Swabs (Alcohol Prep) padsIndications:T ype 2 diabetes mellitus without complication, without long-term current use of insulin ([facility]) Use one pad each to prep skin prior to injection as directed 100 each 11 01/16/20 23 Active Lancets 33G miscIndications:T ype 2 diabetes mellitus without complication, without long-term current use of insulin (CMS/[facility]) Use as directed to check blood sugar four times daily 100 each 3 01/16/20 23 Active Blood Glucose Monitoring Suppl (GNP Easy Touch Glucose Meter) deviceIndications :Type 2 diabetes mellitus without complication, without long-term current use of insulin (CMS/[facility]) Use as directed to check blood sugar four times daily 1 each 01/16/20 23 Active glucose blood test stripIndications: Type 2 diabetes mellitus without complication, without long-term current use of insulin (CMS/[facility]) Use as directed to check blood sugar four times daily 100 each 12 01/16/20 23 Active Diclofenac Sodium 1 % gelIndications:Pa in APPLY 2 GRAMS TOPICALLY TO AFFECTED AREA(S) FOUR TIMES DAILY DIRECTED 100 g 1 03/31/20 24 Active omeprazole (PriLOSEC) [address] capsuleIndication s:Type 2 diabetes mellitus without complication, without long-term current use of insulin (CMS/HCC) Take 1 capsule (20 mg) by mouth Once per day. 30 capsule 04/02/20 24 Active fluticasone (Flonase) 50 MCG/ACT nasal sprayIndications: Allergic rhinitis, unspecified seasonality, unspecified trigger Administer 2 sprays into each nostril Once per day. Shake gently. Before first use, prime pump. After use, clean tip and replace cap. 48 g 04/02/20 24 Active clotrimazole (Lotrimin) 1 % creamIndications: Tinea pedis of left foot APPLY TOPICALLY TO THE AFFECTED AREA(S) TWICE DAILY DIRECTED 15 g 1 04/30/20 24 Active cholecalciferol (D3 Super Strength) 50 MCG (2000 UT) capsule TAKE 1 CAPSULE BY MOUTH EVERY DAY 90 capsule 1 05/07/20 24 Active sertraline (Zoloft) 50 MG tabletIndications :Anxiety Take 1 tablet (50 mg) by mouth Once per day. 30 tablet 11 06/09/20 24 2024 Active atorvastatin (Lipitor) 40 MG tabletIndications :Mixed hyperlipidemia TAKE 1 TABLET BY MOUTH EVERY DAY 90 tablet 1 06/16/20 24 Active fexofenadine (Kendal) 60 MG tabletIndications :Allergic rhinitis, unspecified seasonality, unspecified trigger TAKE 1 TABLET BY MOUTH TWICE DAILY 180 tablet 1 06/16/20 24 Active metFORMIN (Glucophage) 500 MG tablet TAKE 1 TABLET BY MOUTH TWICE DAILY IN THE MORNING AND IN THE EVENING WITH MEALS 180 tablet 3 08/22/19 25 Active amLODIPine (Norvasc) 5 MG tabletIndications :Essential hypertension TAKE 1 TABLET BY MOUTH EVERY DAY 90 tablet 3 08/22/19 25 Active meloxicam (Mobic) 7.5 MG tabletIndications :Chronic pain of both knees TAKE 1 TABLET BY MOUTH EVERY MORNING. MAY TAKE 1 ADDITIONAL TABLET NEEDED PAIN. DO NOT EXCEED 2 TABLETS IN 24 HOURS 30 tablet 3 09/05/19 25 Active amLODIPine (Norvasc) 5 MG tabletIndications :Essential hypertension TAKE 1 TABLET BY MOUTH EVERY DAY 90 tablet 3 08/21/19 24 2024 Discontinued metFORMIN (Glucophage) 500 MG tablet TAKE 1 TABLET BY MOUTH TWICE DAILY IN THE MORNING AND IN THE EVENING WITH MEALS 180 tablet 1 01/13/20 24 2024 Discontinued meloxicam (Mobic) 7.5 MG tabletIndications :Chronic pain of both knees TAKE 1 TABLET BY MOUTH EVERY DAY IN THE MORNING. MAY TAKE 1 ADDITIONAL TABLET NEEDED FOR PAIN. DO NOT EXCEED 2 TABLETS IN 24 HOURS 30 tablet 3 05/09/20 24 2024 Discontinued Active Problems Problem Noted Date Diagnosed Date [...] Routine age 65 Eye Exam: 2022 with [facility] Assessment & Plan (08/03/2023 9:35 AM EST): [...] of SI or self harm. Pt has N crisis contact information Allergic rhinitis 07/30/2012 Assessment & Plan (08/25/2022 6:17 AM EST): - continue current medications per PCP Anxiety 05/28/2012 Overview (11/01/2023): Establshed with therapist Obesity 05/28/2012 Encounters Date Type Department Care Team Description 09/10/2024 Travel 09/04/2024 Refill [facility] MEDICINE [address] [place] [address] Gisele Rodriguez FNP Chronic pain of both knees 08/21/2024 Refill [facility] CHC MED & PEDS [address] [place], [place] [phone] Gisele Rodriguez FNP Essential hypertension 07/10/2024 Telephone [facility] MEDICINE [address] [place], [place] [phone] Gisele Rodriguez FNP Letter for Jury Duty [...] the letter, but she does not speak Yoruba, and would like for that to be added to the letter. She would like for it to be faxed, and a copy mailed to her home.) 07/07/2024 9:45 AM EST Office Visit [facility] MEDICINE [address] [place] [address] [facility] Type 2 diabetes mellitus without complication, without long-term current use of insulin (CMS/HCC) (Primary Dx); Palpitations; Encounter for screening mammogram for breast cancer; Atypical squamous cells of undetermined significance on cytologic smear of cervix (ASC-US) 07/07/2024 Travel 06/30/2024 Travel 06/25/2024 Orders Only [facility] WALK-IN CENTER [address] [place] [address] [facility] Atypical squamous cells of undetermined significance on cytologic smear of cervix (ASC-US) (Primary Dx) from Last 3 Months Immunizations Name Administration [...] your housing situation today? I have rosalie guera 05/11/[address] you li [...] Description 09/17/2024 2:30 PM EST Office Visit [facility] OPTOMETRY [address] [place], [place] [phone] Bernard, Kinga, OD [address] [place] [address] Health Maintenance Due Date Last Done Comments CT Colonography 1965 Dental Oral Exam 1965 Dental Prophylaxis 1965 FIT DNA/Cologuard 1965 FIT 1965 FOBT 1965 Sigmoidoscopy 1965 Hepatitis A Vaccines (1 of 2 - Risk 2-dose series) 01/19/1984 Hepatitis B Vaccines (3 of 3 - 19+ 3-dose series) 11/21/2010 09/26/2010, 11/30/2009 Dental X-Ray: Bitewings 08/29/2023 08/28/2022 COVID-19 Vaccine ( season) 2024 08/03/2021, 11/22/2020, 10/25/2020 Influenza Vaccine (#1) 2024 8, 06/23/2016, 06/23/2015, Additional history exists SDOH Screening 10/03/2024 10/04/2023 Alcohol/Substance Use Screening 10/25/2024 10/26/2023 Diabetes: Hemoglobin A1C 01/05/202507/07/ 024, 04/02/2024, 10/26/2023, Additional history exists Colonoscopy [...] Additional history exists Tobacco Screening 07/07/2025 07/07/2024 Mammogram 08/18/2025 08/18/2024, 02/2021, 05/31/2018 Dental X-Ray: Full Mouth 08/29/2025 08/28/2022 HPV/Cotest 05/25/2028 05/25/2023, 03/25, 09/06/2016 DTaP/Tdap/Td Vaccines (2 - Td or Tdap) 06/17/2028 06/17/2018, 08/26/2009 RSV Patients and Patients Aged 60 years or older (1 - 1-dose 75+ series) 01/19/2040 Zoster Vaccines Completed 03/23/2022, 12/26/2021 HIV Screening Completed 02/05/2023, 05/16/2021 Hepatitis C Screening Completed 02/14/2023, 023 Pneumococcal Vaccine: 50+ Years Completed 04/18/2023, 05/09/2021 HIB Vaccines Aged Out [...] Procedure Name Priority Date/Time Associated Diagnosis Comments BI MAMMOGRAM SCREENING TOMOSYNTHESIS BILATERAL Routine 08/18/2024 3:35 PM EST Encounter for screening mammogram for breast cancer US RETROPERITONEAL COMPLETE Routine 07/18/2024 1:30 PM [...] TIME PCR Routine 02/05/2023 8:41 AM EDT INTRAORAL - COMPLETE SERIES OF RADIOGRAPHIC IMAGES Routine 08/28/2022 11:30 AM EST HM COLONOSCOPY Routine 03/23/2022 from Last 3 Months or Most Recently Relevant to Health Maintenance Results * BI Mammogram Screening Tomosynthesis Bilateral (08/18/2024 3:35 PM EST) Anatomical Region Laterality Modality Breast Bilateral Mammography 08/18/2024 3:35 PM EST Narrative 08/27/2024 12:34 PM EST ? [facility] ? [address] ?[place] [address] ? Mammography Report ? Signed ? Patient: Mary Redding ?MR#: M ?? [id number] ? : 1965 ?Acct:[id number] ? Age/Sex: 59 / F ?ADM Date: 08/18/ ? Loc: HO.MAMMO ? Attending Dr: Gisele Michael IT SYSTEMS ENGINEER ? Ordering Physician: Marmaduke,Gisele IT SYSTEMS ENGINEER ?Results: 1Nega ?? tive ? Date of Service: 08/18/ ?Follow Up: 1 Year From Orig ?? inal Mammogram ? Procedure(s): MM tomosynthesis screening BI ?? Accession Number(s): [id number] ? cc: Marmaduke,Gisele IT SYSTEMS ENGINEER ? EXAMINATION: ?? MM SCREENING DIGITAL BREAST TOMOSYNTHESIS, BILATERAL ? CLINICAL INFORMATION: ? Screening. Asymptomatic. ? COMPARISON: ?? Mammography: Comparison is made with available priors ? TECHNIQUE: ?? Digital breast mammography with tomosynthesis is performed in both the ?? craniocaudal and mediolateral oblique views along with computer-aided ?? detection (CAD). ? FINDINGS: ?? There are scattered areas of fibroglandular density (ACR BI-RADS breast ?? composition Category b). ? There are no significant masses, abnormal calcifications, or other ?? abnormalities. ? MM/MM tomosynthesis screening BI ?? IMPRESSION: ?? No mammographic evidence of malignancy. ? ASSESSMENT: ? BI-RADS BI-RADS 1 - Negative ? RECOMMENDATION: ?? Routine annual mammography screening. ? 1 year F/U ? This examination should not preclude the clinical evaluation of a ?? suspicious palpable abnormality. ? This patient's information was entered into a reminder system with a ?? target due date for their next mammogram. ? Electronically signed by: ??Dannielle White DO ??08/27/2024 12:29 PM EST ? Dictated By: ?Dannielle White DO ? Signed By: ?<Electronically signed by Dannielle White, DO in OV> ? 08/27/24 1229 ? DD/ 1535 ? TD/TT: 08/18/24 1554 ? Butadiene Convertor Operator: ? Procedure Note Shira, Herb - 08/27/2024 [facility] [address] [place] [address] Mammography Report Signed Patient: Mary Redding#: M [id number] : 1965Acct:[id number] Age/Sex: 59 / FADM Date: 08/18/24 Loc: BIB Attending Dr: Gisele Rodriguez IT SYSTEMS ENGINEER Ordering Physician: Gisele Rodriguez FNPResults: 1Nega tive Date of Service: 08/18/24Follow Up: 1 Year From Orig inal Mammogram Procedure(s): MM tomosynthesis screening BI Accession Number(s): [id number] cc: Gisele Rodriguez IT SYSTEMS ENGINEER EXAMINATION: MM SCREENING DIGITAL BREAST TOMOSYNTHESIS, BILATERAL CLINICAL INFORMATION: Screening. Asymptomatic. COMPARISON: Mammography: Comparison is made with available priors TECHNIQUE: Digital breast mammography with tomosynthesis is performed in both the craniocaudal and mediolateral oblique views along with computer-aided detection (CAD). FINDINGS: There are scattered areas of fibroglandular density (ACR BI-RADS breast composition Category b). There are no significant masses, abnormal calcifications, or other abnormalities. MM/MM tomosynthesis screening BI IMPRESSION: No mammographic evidence of malignancy. ASSESSMENT: BI-RADS BI-RADS 1 - Negative RECOMMENDATION: Routine annual mammography screening. 1 year F/U This examination should not preclude the clinical evaluation of a suspicious palpable abnormality. This patient's information was entered into a reminder system with a target due date for their next mammogram. Electronically signed by: Dannielle White DO 08/27/2024 12:29 PM EST Dictated By: Dannielle Wihte DO Signed By: <Electronically signed by Dannielle White DO in OV> 08/27/24 1229 DD/ 1535 TD/TT: 08/18/24 1554 Butadiene Convertor Operator: [facility] IT SYSTEMS ENGINEER IMG BI PROCEDURES Edited Resu lt - Final * US Retroperitoneal Complete (07/18/2024 1:30 PM EST) Anatomical Region Laterality Modality Ultrasound 07/18/2024 1:30 PM EST Narrative 08/01/2024 10:19 AM EST ? [facility] ?[address] ?[place] [address] ? Ultrasound Report ? Signed ? Patient: Parker Lombardo,Mary ?MR#: M ?? [id number] ? : 1965 ?Acct:[id number] ? Age/Sex: 59 / F ?ADM Date: 12/27/24 ? Loc: HO.US ? Attending Dr: Dipti Desouza MD ? Ordering Physician: Dipti Desouza MD ?? Date of Service: 07/18/24 ?? Procedure(s): US retroperitoneal comp ?? Accession Number(s): [id number] ? cc: Dipti Desouza MD; [facility] ? EXAMINATION: ?? US RETROPERITONEAL COMPLETE (RENAL) [...] DD/ 1330 ? TD/TT: 07/18/24 1350 ? Butadiene Convertor Operator: ? Procedure Note Shira, Image - 08/01/[address] [address] Ultrasound Report Signed Patient: Mary Redding#: M [id number] : 1965Acct:[id number] Age/Sex: 59 / FADM Date: 07/18/24 Loc: HO.US Attending Dr: Dipti Desouza MD Ordering Physician: Dipti Desouza MD Date of Service: 07/18/24 Procedure(s): US retroperitoneal comp Accession Number(s): [id number] cc: Dipti Desouza MD; [facility] EXAMINATION: US RETROPERITONEAL COMPLETE (RENAL) CLINICAL INFORMATION: [...] 08/01/24 1015 DD/ 1330 TD/TT: 07/18/24 1350 Butadiene Convertor Operator: us [facility] External Provider IMG US PROCEDURES Final Result * TSH W/Reflex to FT4 (07/07/2024 10:20 AM EST) TSH reflex Free T4 1.10 0.32 - 4.0 uIU/mL [facility] Blood Venous blood specimen / Unknown 07/07/2024 10:20 AM EST 07/07/2024 12:07 PM EST [facility] LAB BLOOD ORDERABLES Final Re sult Performing Organization Address [facility] Co de Phone Number [facility] [address] [place] [phone] * Albumin, Random Urine W/Creatinine (07/07/2024 10:20 AM EST) Creatinine, Urine 76.65 mg/dL [facility] Microalbumin Urine 7.0 mg/L [facility] Microalbum Creatinine Ratio Ur 9.1 <30 ug/mg cr [facility] Comment:Albumin/Creatinine R atio Reference Ranges: Normal: < 30 ug/mg creatinine Microalbuminuria: 30 - 300 ug/mg creatinineClinical Albuminuria: > 300 ug/mg creatinine Urine 07/07/2024 10:2 0 AM EST 07/07/2024 11:59 AM EST [facility] LAB URINE ORDERABLES Final Re sult Performing Organization Address [facility] Co de Phone Number [facility] [address] [place] [phone] * (ABNORMAL) Lipid Panel, Standard (07/07/2024 10:20 AM EST) Triglycerides 188(H) <150 mg/dL [facility] Comment:Desirable Triglyceri de: less than 150 mg/dLBorderline High Triglyceride 150-199 mg/dLHigh Triglyceride: 200-499 mg/dLVery High Triglyceride: greater than or equal to 5OO mg/dL Cholesterol 167 <200 mg/dL [facility] Comment:Desirable Cholestero l: less than 200 mg/dLBorderline High Cholesterol: 200-239 mg/dLHigh Cholesterol: greater than 239 mg/dL LDL Cholesterol Calculated 84 <100 mg/dL [facility] Comment:Desirable LDL: less than 100 mg/dLNear Optimal/Above Optimal LDL: 110- 129 mg/dLBorderline High LDL: 130-159 mg/dLHigh LDL: 160-189 mg/dLVery High LDL: greater than or equal to 190 mg/dL HDL Cholesterol 46 >40 mg/dL [facility] Comment:Desirable HDL: great er than 40 mg/dL Note: This HDL assay may give artificially low results in patients with liver disease. Blood Venous blood specimen / Unknown 07/07/2024 10:20 AM EST 07/07/2024 12:07 PM EST [facility] LAB BLOOD ORDERABLES Final Re sult [facility] [address] [place] [phone] * POCT HGB A1C (07/07/2024 9:45 AM EST) Hemoglobin A1C 5.9 4.0 - 6.0 % QC Media Lot # [id number] Lot# Expiration Date Blood 07/07/2024 9:45 AM EST [facility] POINT OF CARE TEST ENTER/EDIT ORDERABLES Final Result * POCT Glucose (07/07/2024 9:45 AM EST) Glucose Blood, POC 136 60 - 200 mg/dL QC Media Lot # [id number] Lot# Expiration Date ,025 Blood Capillary blood specimen / Unknown 07/07/2024 9:45 AM EST [facility] POINT OF CARE TEST ENTER/EDIT ORDERABLES Final Result * Pap Smear (06/16/2024 9:15 AM EST) Swab Cervix uteri structure / Unknown 06/16/2024 9:15 AM EST 06/16/2024 2:15 PM EST Narrative [facility] - 06/25/2024 11:08 AM EST ----- ------- Name: Mary Redding ?Age/Sex: 59/F ? : 1965 Unit#: [id number] ?? Attend : ?Re06/16/24 ?Status: PRE REF ? Location: HO.LNP ?Disch: ? ----- ------- SPEC : [id number] ?RECD: 06/16/24 ? STATUS: ??SOUT ? REQ NUM: [id number] ? ASHLYN: 06/16/24 ? SUBM DR: Gisele [...] ----- ------- ? END OF REPORT ? [facility] LAB CYTOLOGY ORDERABLES Final Result [facility] [address] [place] [address] [phone] * HPV mRNA E6/E7 w/Reflex to HPV Genotypes 16, 18/45 (05/25/2023 9:30 AM EDT) HPV nRNA E6/E7 Not Detected Not Detected [facility] Comment:Methodology: Transcr iption-Mediated AmplificationThis assay detects E6/E7 viral messenger RNA (mRNA) from 14high-risk HPV types (16,18,31,33,35,39,45,51,52,56,58,59,66,68).Cervical sources are required for HPV testing.If a vaginal source from a patient who has had atotal hysterectomy with removal of cervix wassubmitted, please contact the testing laboratoryfor alternative testing options.For additional information, please refer tohttp://education.tzonebd.com/faq/DFP712o4(This link if provided for information/educational purposes only.)THIS TEST WAS PERFORMED AT:[employer] [place] [id number] DRAPER MD HPV mRNA E6/E7 [facility] HPV 16 RNA [facility] HPV 18/45 RNA [facility] 05/25/2023 9:30 AM EDT 05/28/2023 11:00 AM EST [facility] LAB CYTOLOGY ORDERABLES Final Result [facility] [address] [place] [phone] * Hepatitis Panel, General (02/14/2023 8:54 AM EDT) Hepatitis A IgM Nonreactive Nonreactive [facility] Comment:IgM antibodies to [place] V not detected; does not exclude earlyacute or recovered HAV infection. ~Hepatitis B Surface Antibody GRAYZONE Nonreactive [facility] Comment:GRAYZONE: 8.00 mIU/m L TO 11.99 mIU/mLTHE IMMUNE STATUS OF THE INDIVIDUAL SHOULD BE FURTHERASSESSED BY CONSIDERING OTHER FACTORS, SUCH CLINICALSTATUS, FOLLOW-UP TESTING, ASSOCIATED RISK FACTORS, AND THEUSE OF ADDITIONAL DIAGNOSTIC INFORMATION. Hepatitis B Core Antibody Nonreactive Nonreactive [facility] Hepatitis C Antibody Nonreactive Nonreactive [facility] Comment:Antibodies to HCV no t detected; does not exclude early acuteHCV infection. Hepatitis B Surface Ag Negative Negative [facility] Blood 02/14/2023 8:54 AM EDT 02/14/2023 11:21 AM EDT [facility] LAB BLOOD ORDERABLES Final Re sult Performing Organization Address [facility] Co de Phone Number [facility] [address] [place] [phone] * HIV-1 RNA, Quantitative, Real-Time PCR (02/05/2023 8:41 AM EDT) Pathologist [facility] HIV RNA PCR Qn Copies NOT DETECTED NOT DETECTED copies/mL [facility] HIV RNA PCR Qn Log Copies NOT DETECTED NOT DETECTED [facility] Comment:Result Units: Log co pies/mLThis test was performed using Real-Time Polymerase ChainReaction.Reportable Range: 20 copies/mL to 10,000,000 copies/mL(1.30 log copies/mL to 7.00 log copies/mL).THIS TEST WAS PERFORMED AT:[employer] [address] [id number] DRAPER MD 02/05/2023 8:41 AM EDT 02/05/2023 11:44 AM EDT [facility] LAB BLOOD ORDERABLES Final Re sult Performing Organization Address [facility] Co de Phone Number [facility] [address] [place] [phone] * (ABNORMAL) Hm Colonoscopy (03/23/2022) Colonoscopy Abnormal(A ) Normal us Historical Provider HEALTH MAINTENANCE Final Result from Last 3 Months or Most Recently Relevant to Health Maintenance Insurance [facility] C3 HSN FULL DENTAL-[facility] MEDICAID STAND ADULT Care Teams It Software Developer Relationship Specialty Start Date End Date Marmaduke Gisele [facility] [address] [place] [phone] PCP - General Family Medicine 08/16/22
== END 2024-09-17 11:43 | disposition home or self-care (01) ==
LOC: HO.HWS 10:37
PROVIDERS: PCP Registered Nurse; Visit Provider Obstetrics & Gynecology
DX: R87.610 Atypical squamous cells of undetermined significance on cytologic smear of cervix (ASC-US) (principal); R87.810 Cervical high risk human papillomavirus (HPV) DNA test positive
CPT/HCPCS: 57454

== ENCOUNTER 2024-11-13 14:52 | Outpatient (AMB) | payer MEDICAID, SELFPAY ==
--- NOTE | 2024-11-13 15:00 | MHC.OFFVIS ---
Intake Visit Reasons: Colpo results Rotary Engine Assembler Required: Yes Rotary Engine Assembler Language: Plan Coordinator Services: Rotary Engine Assembler Present (in person) Rotary Engine Assembler Name: Petty StanleyRIO Information Interpreted: non-clinical & clinical Grader Tender: Grader Tender Present (RIO Rey) Accompanied by: Self / Same As Patient Allergies latex Allergy (Intermediate, Verified 11/13/24 15:01) Itching penicillin V Allergy (Mild, Verified 11/13/24 15:01) Abdominal Pain lisinopril Allergy (Unknown, Verified 11/13/24 15:01) cough HPI Comments Details: Presenting post colpo for follow-up. The patient is doing well with no complaints. The pathology showed the following: A. Endocervix, curettage: Endocervical and squamous epithelium within normal limits. B. Cervix, 4 o'clock, biopsy: - Squamous epithelium within normal limits. - Endocervical mucosa within normal limits. C. Cervix, 6 o'clock, biopsy: - Squamous mucosa within normal limits. - No endocervical epithelium identified. D. Cervix, 9 o'clock, biopsy: - Squamous epithelium within normal limits. - No endocervical epithelium identified [facility] Medical History Mild intermittent asthma DM type 2 (diabetes mellitus, type 2) GERD (gastroesophageal reflux disease) HTN (hypertension) Vitamin D deficiency Hyperlipidemia Anxiety Allergic rhinitis Depression Dyspepsia Surgical History History of esophagogastroduodenoscopy (EGD) Hx of colonoscopy Family History Unknown No family history of colorectal cancer Social History Household Members: Spouse Patient Tobacco Use Status: Former Tobacco user Tobacco use type: Cigarette Years Smoked: 3 Current occupational status: unemployed Review of Systems Const All systems reviewed & are unremarkable except as noted in HPI and below Reports as per HPI and Reports no additional complaints GI Reports no additional complaints Reports no additional complaints Assessment & Plan Assessment & Plan (1) ASCUS with positive high risk HPV cervical: Code(s): R87.610 - Atypical squamous cells of undetermined significance on cytologic smear of cervix (ASC-US); R87.810 - Cervical high risk human papillomavirus (HPV) DNA test positive Category: Medical Plan: Discussed with the patient the pathology results of the colposcopy biopsies & endocervical curettage . Discussed with the patient the sensitivity specificity, positive and negative predictive value in detecting cervical cancer in addition discussed the regression, persistence and progression rates. Recommended co-testing in 12 months, if cytology and or HPV are abnormal will proceed was colposcopy biopsy and endocervical curettage. Instructions given to the patient to schedule a co test appointment in 1 year. All questions answered the patient verbalized understanding. Coding Level of Care Code Est Pt Level 3 (50979) Diagnoses ASCUS with positive high risk HPV cervical R87.610; R87.810
--- OUTSIDE RECORDS SUMMARY | 2024-11-13 17:35 | XMS_ITS | Encounter Summary ---
Author Organization [employer] Address [address] [place] [address] Care Team Providers Care Fitter Welder Name Role Phone Gisele Rodriguez TRIMMING OPERATOR Primary Care Provider [phone] Encounter Details Date Type Department Care Team (Late st Contact Info) Description 09/23/2024 Orders Only [facility] [address] [place], [place] [phone] Amelia Reyes Social History Tobacco Use Types [...] Care Team (Late st Contact Info) Description 01/12/2025 9:00 AM EDT Office Visit [facility] MEDICINE [address] [place] [address] Gisele Rodriguez FNP [address] [place] [address] documented as of this encounter Procedures Procedure Name Priority Date/Time Associated Diagnosis Comments COLPOSCOPY Routine 09/17/2024 12:00 AM EST documented in this encounter Results * Colposcopy (09/17/2024 12:00 AM EST) us Historical Provider MD IN CLINIC/BEDSIDE ORDERAB LES Final Result [facility] [address] [place] [address] [phone] documented in this encounter Visit Diagnoses Not on filedocumented in this encounter Additional Health Concerns Assessment Noted Time PHQ-9 Depression Total Score: 0 07/07/20 24 9:44 AM EST documented as of this encounter Care Teams Fitter Welder Relationship Specialty Start Date End Date Gisele Rodriguez FNP [address] [place] [address] PCP - General Family Medicine 08/16/22 documented as of this encounter
--- OUTSIDE RECORDS SUMMARY | 2024-11-13 17:35 | XMS_ITS | Encounter Summary ---
Author Organization [employer] [facility] Address [address] [place] [address] [address] [place] [address] Care Team Providers Care Horticultural Agent Name Role Phone Julisa Klein MD Primary Care Provider Gisele Neves [facility] Primary Care Provider [phone] Encounter Details Date Type Department Care Team (Latest Contact Info) Description 12/14/2021 Abstract [facility] CONVERSIONS Dental, Provider, DDS Social History Tobacco [...] Upcoming Encounters Date Type Department Care Team ( st Contact Info) Description 01/12/2025 9:00 AM EDT Office Visit [facility] MEDICINE [address] [place] [address] [place] Gisele [facility] [address] [place] [address] documented as of this encounter Visit Diagnoses Not on filedocumented in this encounter Care Teams Horticultural Agent Relationship Specialty Start Date End Date Julisa Klein MD PCP - General Family Medicine 06/25/19 08/15/22 Gisele Rodriguez [facility] [address] [place] [address] PCP - General Family Medicine 08/16/22 documented as of this encounter
--- OUTSIDE RECORDS SUMMARY | 2024-11-13 17:35 | XMS_ITS | Encounter Summary ---
Author Organization [facility] Address [address] [place] [address] [address] [place] [address] Care Team Providers Care Yacht Captain Name Role Phone Julisa Klein MD Primary Care Provider Gisele Neves [facility] Primary Care Provider [phone] Encounter Details Date Type Department Care Team (Latest Contact Info) Description 05/29/2019 Abstract [facility] CONVERSIONS Dental, Provider, DDS Social History [...] Description 01/12/2025 9:00 AM EDT Office Visit [facility] MEDICINE [address] [place] [address] [place] Gisele [facility] [address] [place] [address] documented as of this encounter Visit Diagnoses Not on filedocumented in this encounter Care Teams Yacht Captain Relationship Specialty Start Date End Date Julisa Klein MD PCP - General Family Medicine 06/25/19 08/15/22 [place] [facility] [address] [place] [address] PCP - General Family Medicine 08/16/22 documented as of this encounter
--- OUTSIDE RECORDS SUMMARY | 2024-11-13 17:35 | XMS_ITS | Encounter Summary ---
Author Organization [employer] Address [address] [place] [address] Care Team Providers Care Herbicide Service Sales Representative Name Role Phone Gisele Rodriguez TRANSPORT ASSISTANT Primary Care Provider [phone] Encounter Details Date Type Department Care Team ([facility] st Contact Info) Description 06/08/2023 Abstract [facility] MEDICINE [address] [place], [place] [phone] Amelia Reyes Social History Tobacco Use Types [...] Description 01/12/2025 9:00 AM EDT Office Visit [facility] MEDICINE [address] [place] [address] Gisele Rodriguez FNP [address] [place] [address] documented as of this encounter Visit Diagnoses Not on filedocumented in this encounter Additional Health Concerns Assessment Noted Time PHQ-9 Depression Total Score: 0 04/18/20 10:13 AM EDT documented as of this encounter Care Teams Herbicide Service Sales Representative Relationship Specialty Start Date End Date Gisele Rodriguez FNP [address] [place] [address] PCP - General Family Medicine 08/16/22 documented as of this encounter
--- OUTSIDE RECORDS SUMMARY | 2024-11-13 17:35 | XMS_ITS | Clinical Summary ---
Author Organization [employer] Address [address] [place] [address] 7 [place] [address] Care Team Providers Care Motor Vehicle Parts Interpreter Name Role Phone Gisele Rodriguez INSURANCE SALES MANAGER Primary Care Provider [phone] Allergies Active Allergy Reactions Criticality Noted Date Comments Lisinopril Cough 08/21/2018 Penicillin V 08/04/2010 Other reaction(s): unspecified Medications albuterol 108 (90 Base) MCG/ACT inhalerIndications :Shortness of breath Inhale 2 puffs every 6 (six) hours if needed for wheezing. 18 g 11 3 Active Alcohol Swabs (Alcohol Prep) padsIndications:Ty pe 2 diabetes mellitus without complication, without long-term current use of insulin ([facility]) Use one pad each to prep [...] times daily 100 each 12 3 Active Diclofenac Sodium 1 % gelIndications:Gibson n [...] EVERY DAY 90 capsule 1 4 Active sertraline (Zoloft) 50 MG tabletIndications: [...] TWICE DAILY 180 tablet 1 4 Active metFORMIN (Glucophage) 500 MG tablet TAKE 1 TABLET BY MOUTH TWICE DAILY IN THE MORNING AND IN THE EVENING WITH MEALS 180 tablet 3 5 Active amLODIPine (Norvasc) 5 MG tabletIndications: Essential hypertension TAKE 1 TABLET BY MOUTH EVERY DAY 90 tablet 3 5 Active meloxicam (Mobic) 7.5 MG tabletIndications: Chronic pain of both knees TAKE 1 TABLET BY MOUTH EVERY MORNING. MAY TAKE 1 ADDITIONAL TABLET NEEDED PAIN. DO NOT EXCEED 2 TABLETS IN 24 HOURS 30 tablet 3 5 Active Active Problems Problem Noted Date Diagnosed [...] Routine age 65 Eye Exam: 2022 with [facility] Assessment & Plan (08/03/2023 9:35 AM EST): [...] Encounters Date Type Department Care Team Description 10/28/2024 Outside Procedure [facility] OPTOMETRY [address] [place] [address] Raffi Wagnern, OD Presbyopia (Primary Dx) 10/24/2024 9:30 AM EDT Office Visit [facility] OPTOMETRY [address] [place] [address] Raffi Wagnern, OD Regular astigmatism of both eyes (Primary Dx) 10/03/2024 Population Health Risk Score [facility] () Department [address] [phone] Provider, Population Health Generic 09/23/2024 Orders Only [facility] [address] [place] [address] Amelia Reyes 09/17/2024 2:30 PM EST Office Visit [facility] OPTOMETRY [address] [place] [address] Raffi Wagnern, OD Type 2 diabetes mellitus without ophthalmic manifestations (CMS/HCC) (Primary Dx); Meibomian gland dysfunction; Combined forms of age-related cataract of both eyes; Presbyopia 09/17/2024 Orders Only GENERIC EXTERNAL DATA DEPARTMENT Provider, Generic External Data 09/17/2024 Travel 09/10/2024 Travel 09/04/2024 Refill [facility] [address] [place] [address] Gisele Rodriguez, INSURANCE SALES MANAGER Chronic pain of both knees 08/21/2024 Refill [facility] [address] [place] [address] Gisele Rodriguez, INSURANCE SALES MANAGER Essential hypertension from Last 3 Months Immunizations Name Administration [...] Description 01/12/2025 9:00 AM EDT Office Visit [facility] [address] [place] [address] [facility] [address] [place] [address] Health Maintenance Due Date Last Done Comments CT Colonography 1965 Dental Oral Exam 1965 Dental Prophylaxis 1965 FIT DNA/Cologuard 1965 FIT 1965 FOBT 1965 Sigmoidoscopy 1965 Alcohol/Substance Use Screening 1977 Hepatitis A Vaccines (1 of 2 - Risk 2-dose series) 01/19/1984 Hepatitis B Vaccines (3 of 3 - 19+ 3-dose series) 11/21/2010 09/26/2010, 11/30/2009 Dental X-Ray: Bitewings 08/29/2023 08/28/2022 COVID-19 Vaccine ( season) 2024 08/03/2021, 11/22/2020, 10/25/2020 Influenza Vaccine (#1) 2024 8, 06/23/2016, 06/23/2015, Additional history exists SDOH Screening 10/03/2024 10/04/2023 Diabetes: Hemoglobin A1C 01/05/2025 024, 04/02/2024, 10/26/2023, Additional history exists Colonoscopy 03/23/2025 03/23/2022 Colorectal Cancer Screening 03/23/2025 Diabetes: Foot Exam 04/02/2025 04/02/2024, 04/02/2024, 04/02/2024, Additional history exists Depression Screening 07/07/2025 07/07/2024, 07/07/20 24 Diabetes: Urine Protein Screening 07/07/2025 07/07/2024, 04/15/2020 Lipid Panel 07/07/2025 07/07/2024, 0701/2023, 05/16/2021, Additional history exists Mammogram 08/18/2025 08/18/2024, 02/2021, 05/31/2018 Dental X-Ray: Full Mouth 08/29/2025 08/28/2022 Cervical Cancer Screening 09/17/2025 HPV/Cotest 09/17/2025 05/25/2023, 03/25, 09/06/2016 Pap Smear 09/17/2025 06/16/2024, 1109/2022, 04/21/2022 Tobacco Screening 09/18/2025 09/18/2024 Eye Exam 09/17/2026 09/17/2024, 08/24, 09/17/2024, Additional history exists DTaP/Tdap/Td Vaccines (2 - Td or Tdap) [...] Procedure Name Priority Date/Time Associated Diagnosis Comments HEMATOXYLIN AND EOSIN STAIN Routine 09/17/2024 11:44 AM EST COLPOSCOPY Routine 09/17/2024 12:00 AM EST BI MAMMOGRAM SCREENING TOMOSYNTHESIS BILATERAL Routine 08/18/2024 3:35 PM EST Encounter for screening mammogram for breast cancer ALBUMIN, RANDOM URINE W/CREATININE Routine 07/07/2024 10:20 [...] Recently Relevant to Health Maintenance Results * Hematoxylin and Eosin Stain (09/17/2024 11:44 AM EST) 09/17/2024 11:4 4 AM EST 09/18/2024 8:12 AM EST [facility] - 09/19/2024 4:23 PM EST ----- ------- Name: Mary Redding ?Age/Sex: 59/F ? : 1965 Unit#: [id number] ?? Attend Dr: Homer Pollard MD ?Re09/17/24 ?Status: DEP REF ? Location: HO.LNP ?Disch: ? ----- ------- SPEC : [id number] ? RECD: 09/18/24 ? STATUS: ??SOUT ? REQ NUM: [id number] ? ASHLYN: 09/17/24 ? SUBM DR: Homer Pollard MD ? ENTERED: ??09/18/24 ?SP TYPE: Surgical ? OTHR DR: Gisele Rodriguez INSURANCE SALES MANAGER ? ORDERED: ??HE Stain/11, Gross Micro L4/4 ? Diagnosis ?? A. ??Endocervix, curettage: ??Endocervical and squamous epithelium within normal limits. ? B. ??Cervix, 4 o'clock, biopsy: ?- Squamous epithelium within normal limits. ?- Endocervical mucosa within normal limits. ? C. ??Cervix, 6 o'clock, biopsy: ?- Squamous mucosa within normal limits. ?- No endocervical epithelium identified. ? D. ??Cervix, 9 o'clock, biopsy: ?- Squamous epithelium within normal limits. ?- No endocervical epithelium identified. ? COMMENT: ??The atypical cells on the patient's recent Pap ([id number]; ASCUS with positive ?? HR HPV) are not definitively represented in the current samples - slide reviewed. ?Clinical History ASCUS with positive high risk HPV cervical ?Microscopic Description A-D. ??Microscopic sections reviewed. ? Material Received ?? A. ECC ?? B. Cx bx 4 o'clock ?? C. Cx bx 6 o'clock ?? D. Cx bx 9 o'clock ? Gross Description Received in four parts. Part A: ??Received in formalin labeled ?ECC? is a 0.35 x 0.3 x 0.25 cm aggregate of predominantly clear mucus, submitted in toto in a cassette labeled A. Part B: ??Received in formalin labeled ?cx bx 4? is a 0.5 cm rubbery, ibanez-white wedge-shaped fragment of mucosa, submitted in toto in a cassette labeled B. ? CONTINUED ON NEXT PAGE ----- ------- Name: Mary Redding ?Age/Sex: 59/F ? : 1965 Unit#: [id number] ?? Attend Dr: Homer Pollard MD ?Re09/17/24 ?Status: DEP REF ? Location: HO.LNP ?Disch: ? ----- ------- SPEC : [id number] ? RECD: 09/18/24 ? STATUS: ??SOUT ? REQ NUM: [id number] ? ASHLYN: 09/17/24-1144 ? SUBM DR: Homer Pollard MD ? ENTERED: ??09/18/24 ?SP TYPE: Surgical ? OTHR DR: Gisele Rodriguez INSURANCE SALES MANAGER ? ORDERED: ??HE Stain/11, Gross Micro L4/4 ? Gross Description ?(Continued) Part C: ??Received in formalin labeled ?cx bx 6? are 2 ibanez-white and ibanez-morrow irregular fragments of mucosa measuring 0.1 and 0.2 cm, submitted in toto in a cassette labeled C. Part D: ??Received in formalin labeled ?cx bx 9? is a 0.4 cm thin and delicate ibanez-white rectangular fragment of mucosa, submitted in toto in a cassette labeled Luz LUCIO Copies To: ?? [place],[facility] ?? [address] ?? [place] [address] ?? [phone] ?? Homer Pollard MD ?? [facility] ?? [address] ?? [place] [address] ?? [phone] ----- ------- Signed (signature on file) Prince Arita MD 09/19/24 3523 ? ----- ------- ? END OF REPORT ? us Generic External Data Provider LAB BLOOD ORDERAB LES Final Result Performing Organization Address [facility] Co de Phone Number [facility] [address] [place] [address] [phone] * Colposcopy (09/17/2024 12:00 AM EST) Historical Provider IN CLINIC/BEDSIDE ORDERAB LES Final Result Performing Organization Address [facility]/State/ZIP Co de Phone Number [facility] [address] [place] [address] [phone] * BI Mammogram Screening Tomosynthesis Bilateral (08/18/2024 3:35 PM EST) Anatomical Region Laterality Modality Breast Bilateral Mammography 08/18/2024 3:35 PM EST Narrative 08/27/2024 12:34 PM EST ? [facility] [place] ? [address] ?[place] [address] ? Mammography Report ? Signed ? Patient: Mary Redding ?MR#: [id number] ?? [id number] ? : 1965 ?Acct:[id number] ? Age/Sex: 59 / F ?ADM Date: 08/18/24 ? Loc: HO.MAMMO ? Attending Dr: Gisele [place] INSURANCE SALES MANAGER ? Ordering Physician: Michael,Gisele INSURANCE SALES MANAGER ?Results: 1Nega ?? tive ? Date of Service: 08/18/24 ?Follow Up: 1 Year From Orig ?? inal Mammogram ? Procedure(s): MM tomosynthesis screening BI ?? Accession Number(s): [id number] ? cc: Gisele Rodriguez INSURANCE SALES MANAGER ? EXAMINATION: ?? MM SCREENING DIGITAL BREAST [...] DD/ 1535 ? TD/TT: 08/18/24 1554 ? Emergency Department Technician: ? Procedure Note Freddymaxinenehalgopi, Image - 08/27/2024 [place] [facility] [address] [place] [address] Mammography Report Signed Patient: Mary Redding#: M [id number] : 1965Acct:[id number] Age/Sex: 59 / FADM Date: 08/18/24 Loc: BIB Attending Dr: Gisele Rodriguez INSURANCE SALES MANAGER Ordering Physician: Gisele Rodriguez FNPResults: 1Nega tive Date of Service: 08/18/24Follow Up: 1 Year From Orig inal Mammogram Procedure(s): MM tomosynthesis screening BI Accession Number(s): [id number] cc: Gisele Rodriguez INSURANCE SALES MANAGER EXAMINATION: MM SCREENING DIGITAL BREAST TOMOSYNTHESIS, BILATERAL [...] Dannielle White DO 08/27/2024 12:29 PM EST RP Workstation: [employer] Dictated By: Dannielle White DO Signed By: <Electronically signed by Dannielle White DO in OV> 08/27/24 1229 DD/ 1535 TD/TT: 08/18/24 1554 Emergency Department Technician: [facility] IMG BI PROCEDURES Edited Resu lt - Final * Albumin, Random Urine W/Creatinine (07/07/2024 10:20 AM EST) Creatinine, Urine 76.65 mg/dL [facility] Microalbumin Urine 7.0 mg/L [facility] Microalbum Creatinine Ratio Ur 9.1 <30 ug/mg cr [facility] Comment:Albumin/Creatinine R atio Reference Ranges: Normal: < 30 ug/mg creatinine Microalbuminuria: 30 - 300 ug/mg creatinineClinical Albuminuria: > 300 ug/mg creatinine Urine 07/07/2024 10:2 0 AM EST 07/07/2024 11:59 AM EST [facility] LAB URINE ORDERABLES Final Re sult [facility] [address] [place] [phone] * (ABNORMAL) Lipid Panel, Standard (07/07/2024 10:20 AM EST) Triglycerides 188(H) <150 mg/dL [facility] Comment:Desirable Triglyceri de: less than 150 mg/dLBorderline High Triglyceride 150-199 mg/dLHigh Triglyceride: 200-499 mg/dLVery High Triglyceride: greater than or equal to 5OO mg/dL Cholesterol 167 <200 mg/dL [facility] Comment:Desirable Cholestero l: less than 200 mg/dLBorderline High Cholesterol: 200-239 mg/dLHigh Cholesterol: greater than 239 mg/dL LDL Cholesterol Calculated 84 <100 mg/dL [facility] Comment:Desirable LDL: less than 100 mg/dLNear Optimal/Above Optimal LDL: 110- 129 mg/dLBorderline High LDL: 130-159 mg/dLHigh LDL: 160-189 mg/dLVery High LDL: greater than or equal to 190 mg/dL HDL Cholesterol 46 >40 mg/dL [facility] Comment:Desirable HDL: great er than 40 mg/dL Note: This HDL assay may give artificially low results in patients with liver disease. Blood Venous blood specimen / Unknown 07/07/2024 10:20 AM EST 07/07/2024 12:07 PM EST [facility] LAB BLOOD ORDERABLES Final Re sult [facility] [address] [place] [phone] * POCT HGB A1C (07/07/2024 9:45 AM EST) Hemoglobin A1C 5.9 4.0 - 6.0 % QC Media Lot # [id number] Lot# Expiration Date Blood 07/07/2024 9:45 AM EST [facility] POINT OF CARE TEST ENTER/EDIT ORDERABLES Final Result * Pap Smear (06/16/2024 9:15 AM EST) Swab Cervix uteri structure / Unknown 06/16/2024 9:15 AM EST 06/16/2024 2:15 PM EST Segun [facility] - 06/25/2024 11:08 AM EST ----- ------- Name: Mary Redding ?Age/Sex: 59/F ? : 1965 Unit#: [id number] ?? Attend Dr: ?Re06/16/24 ?Status: PRE REF ? Location: HO.LNP ?Disch: ? ----- ------- SPEC : [id number] ?RECD: 06/16/24-215 ? STATUS: ??SOUT ? REQ NUM: [id number] ? ASHLYN: 06/16/24-914 ? SUBM DR: Gisele Rodriguez INSURANCE SALES MANAGER ? ENTERED: ??06/16/24-1424 ?SP TYPE: Pap Smr ?OTHR : ? [...] (signature on file) Prince Arita MD 06/25/24 7128 ? ----- ------- ? END OF REPORT ? [facility] LAB CYTOLOGY ORDERABLES Final Result Performing Organization Address [facility] de Phone Number [facility] [address] [place] [address] [phone] * HPV mRNA E6/E7 w/Reflex to HPV Genotypes 16, 18/45 (05/25/2023 9:30 AM EDT) HPV nRNA E6/E7 Not Detected Not Detected [facility] Comment:Methodology: Transcr iption-Mediated AmplificationThis assay detects E6/E7 viral messenger RNA (mRNA) from 14high-risk HPV types (16,18,31,33,35,39,45,51,52,56,58,59,66,68).Cervical sources are required for HPV testing.If a vaginal source from a patient who has had atotal hysterectomy with removal of cervix wassubmitted, please contact the testing laboratoryfor alternative testing options.For additional information, please refer tohttp://education.Wanelo/faq/BML773f5(This link if provided for information/educational purposes only.)THIS TEST WAS PERFORMED AT:[employer] [place] [phone] DRAPER MD HPV mRNA E6/E7 [facility] HPV 16 RNA [facility] HPV 18/45 RNA [facility] 05/25/2023 9:30 AM EDT 05/28/2023 11:00 AM EST [facility] LAB CYTOLOGY ORDERABLES Final Result Performing Organization Address [facility] Co de Phone Number [facility] [address] [place] [address] [phone] * Hepatitis Panel, General (02/14/2023 8:54 AM EDT) Pathologist [facility] Hepatitis A IgM Nonreactive Nonreactive [facility] Comment:IgM antibodies to CALLAHAN V not detected; does not exclude earlyacute or recovered HAV infection. ~Hepatitis B Surface Antibody GRAYZONE Nonreactive [facility] Comment:GRAYZONE: 8.00 mIU/m L TO 11.99 mIU/mLTHE IMMUNE STATUS OF THE INDIVIDUAL SHOULD BE FURTHERASSESSED BY CONSIDERING OTHER FACTORS, SUCH CLINICALSTATUS, FOLLOW-UP TESTING, ASSOCIATED RISK FACTORS, AND THEUSE OF ADDITIONAL DIAGNOSTIC INFORMATION. Hepatitis B Core Antibody Nonreactive Nonreactive [facility] Hepatitis C Antibody Nonreactive Nonreactive [facility] Comment:Antibodies to HCV no t detected; does not exclude early acuteHCV infection. Hepatitis B Surface Ag Negative Negative [facility] Blood 02/14/2023 8:54 AM EDT 02/14/2023 11:21 AM EDT [facility] LAB BLOOD ORDERABLES Final Re sult [facility] [address] [place] [phone] * HIV-1 RNA, Quantitative, Real-Time PCR (02/05/2023 8:41 AM EDT) Pathologist [facility] HIV RNA PCR Qn Copies NOT DETECTED NOT DETECTED copies/mL [facility] HIV RNA PCR Qn Log Copies NOT DETECTED NOT DETECTED [facility] Comment:Result Units: Log co pies/mLThis test was performed using Real-Time Polymerase ChainReaction.Reportable Range: 20 copies/mL to 10,000,000 copies/mL(1.30 log copies/mL to 7.00 log copies/mL).THIS TEST WAS PERFORMED AT:[employer] [place] [phone] DRAPER MD 02/05/2023 8:41 AM EDT 02/05/2023 11:44 AM EDT us Gisele Michael INSURANCE SALES MANAGER LAB BLOOD ORDERABLES Final Re sult [facility] [address] [place] [address] [phone] * (ABNORMAL) Colonoscopy (03/23/2022) Colonoscopy Abnormal(A ) Normal us Historical Provider MD HEALTH MAINTENANCE Final Result from Last 3 Months or Most Recently Relevant to Health Maintenance Insurance [facility] C3 HSN FULL DENTAL-[facility] MEDICAID STAND ADULT Care Teams Motor Vehicle Parts Interpreter Relationship Specialty Start Date End Date Gisele Rodriguez FNP [address] [place] [phone] PCP - General Family Medicine 08/16/22
== END 2024-11-13 15:26 | disposition home or self-care (01) ==
LOC: HO.HWS 14:52
PROVIDERS: PCP Registered Nurse; Visit Provider Obstetrics & Gynecology
DX: R87.610 Atypical squamous cells of undetermined significance on cytologic smear of cervix (ASC-US) (principal); R87.810 Cervical high risk human papillomavirus (HPV) DNA test positive
CPT/HCPCS: 99213

== ENCOUNTER → 2024-11-13 14:52 | Outpatient (BNVA) | payer MEDICAID, SELFPAY | PROVIDERS: PCP Registered Nurse; Visit Provider Obstetrics & Gynecology | DX: R87.610 Atypical squamous cells of undetermined significance on cytologic smear of cervix (ASC-US) (principal); R87.810 Cervical high risk human papillomavirus (HPV) DNA test positive | CPT/HCPCS: 99212 ==

== ENCOUNTER 2025-05-07 15:04 | Outpatient (AMB) | payer MEDICAID, SELFPAY ==
--- NOTE | 2025-05-07 15:07 | A.OFFVIS_ITS ---
Vital Signs 05/07/25 15:08 Height 5 ft 2 in Weight 179 lb BMI 32.7 Blood Pressure Location Lt brachial Position Sitting Pulse Oximetry (%) 98 Oxygen Delivery Method Room Air Intake Visit Reasons: colo rescreen [facility] 05/04/22 Intake Note: Patient new consult for pre colonoscopy screening/[facility]imee [facility] was 05/04/2022 and last Colonoscopy was by Dr. Crow 03/2023. Patient cc: acid reflux and constipation on and off. Denies any other GI issues. Washing Machine Striper Required: Yes Washing Machine Striper Name: [facility] Interpeter Accompanied by: Self / Same As Patient Allergies latex Allergy (Intermediate, Verified 05/07/25 15:07) Itching penicillin V Allergy (Mild, Verified 05/07/25 15:07) Abdominal Pain lisinopril Allergy (Unknown, Verified 05/07/25 15:07) cough Medication List - Last Reconciled 05/07/25 by Cheryl Sweet CNP amlodipine 5 mg PO DAILY atorvastatin 40 mg PO DAILY cholecalciferol (vitamin D3) 50 mcg PO DAILY diclofenac sodium 1% 2 grams topical QID fexofenadine 60 mg PO BID fluticasone propionate 50 mcg/actuation 1 spray intranasal BID metformin 500 mg PO BID omeprazole 20 mg PO DAILY polyethylene glycol 3350 (Miralax) 17 grams PO DAILY 30 days tirzepatide (Mounjaro) mg subcut QWEEK HPI HPI colo rescreen [facility] 05/04/22: Details: Patient is a 60-year-old female with PMH of anxiety, depression, asthma, diabetes, hypertension, hyperlipidemia. Last visit with LIAS Griffith 05/04/2022 for follow up post procedure. Patient presents with persistent reflux, characterized by a sensation of heat rising up the chest, particularly after ingesting fatty or greasy foods, including minimal amounts such as butter. Patient reports regurgitation of liquids or food particles. Symptoms are aggravated by dietary fat and alleviated by avoidance of fried or greasy foods. Patient has not been compliant with daily omeprazole due to preference to limit medication use but experiences ongoing symptoms. Constipation began following initiation of Mounjaro ( 3 weeks ago) injections for suspected weight loss/pre diabetes management. Patient notes reduced desire to drink water and episodic constipation, including passage of hard, pellet-like stools. Lower abdominal pain is reported, occasionally associated with constipation and improving post-defecation. Patient describes intermittent anal pain, previously associated with rectal bleeding due to benign rectal polyps, which were removed in 2021; currently, no rectal bleeding. Patient has a history of arthritis. No recent use of opioid analgesics; previously took oxycodone for stones, now discontinued. Patient denies: fever/chills, n/v, appetite changes,dysphasia, unintentional wt loss or melena/hematochezia. Social hx: -denies ETOH use -denies recreational drug use -former smoker, cessation approx 10 years. -denies significant cardiopulmonary history -tolerated anesthesia in the past without difficulty. [facility] Medical History (Updated 05/07/25 @ 16:48 by Cheryl Sweet CNP) Constipation Mild intermittent asthma DM type 2 (diabetes mellitus, type 2) GERD (gastroesophageal reflux disease) HTN (hypertension) Vitamin D deficiency Hyperlipidemia Anxiety Allergic rhinitis Depression Dyspepsia Surgical History History of esophagogastroduodenoscopy (EGD) Hx of colonoscopy Family History Unknown No family history of colorectal cancer Social History Household Members: Spouse Patient Tobacco Use Status: Former Tobacco user Tobacco use type: Cigarette Years Smoked: 3 Current occupational status: unemployed Review of Systems Const Reports as per HPI ENT Reports as per HPI Card Reports as per HPI Resp Reports as per HPI GI Reports as per HPI Reports as per HPI Physical Exam Vital Signs: Last Vital Signs Pulse Ox 98 05/07/25 15:08 Oxygen Delivery Method Room Air 05/07/25 15:08 BMI result Body Mass Index 32.7 Const General: healthy appearing, no acute distress and well developed Nutritional Appearance: average body habitus Orientation/consciousness: patient oriented x3 HEENT Head: Yes normal to inspection, Yes normocephalic and Yes atraumatic Face and sinus: Yes normal facial exam Eyes General: appearance normal, both eyes and all related structures Neck Neck: Yes normal visual inspection Resp Effort & Inspection: normal respiratory effort, able to speak in complete sentences, no tracheal deviation and symmetric chest movement Auscultation: clear to auscultation bilaterally Cardio Jugular venous distension: no JVD Rate: regular rate Rhythm: regular rhythm Heart sounds: S1 normal heart sound present, S2 normal heart sound present, no gallops and no murmurs GI Inspection: Yes normal to inspection, No distended and Yes obesity Palpation (GI): Soft to palpation, not firm, nontender and No hepatosplenomegaly present Auscultation: normal bowel sounds Rectal Exam - Female: visual inspection normal, normal sphincter tone, No External hemorrhoid(s) present, No Internal hemorrhoid(s) present, No Rectal prolapse, No fecal impaction, No Lesions present (GI), No Anal fissure(s) present, No Fistula present (GI), No Laceration(s) present (GI), No Excoriation present (GI), No mass and No tenderness Neuro General: patient oriented x3 Gait exam (Neuro): Normal gait present Psych Appearance: grossly normal Mental Status: mental status grossly normal Speech and movement: Normal speech and movement present Affect: normal affect Attitude: cooperative Thought process: Normal thought process present Thought content: Normal thought content present Insight: Good insight present (Psych) Judgement: Good judgement present (Psych) Results Reviewed Results Reviewed: Date of Service: 05/15/24 Procedure(s): CT abdomen pelvis w IV con Accession Number(s): [id number] cc: [facility]; Rasheed Aguirre MD~ EXAMINATION: CT ABDOMEN AND PELVIS WITH CONTRAST CLINICAL INFORMATION: Pain. COMPARISON: None available. TECHNIQUE: Multidetector volumetric images were obtained from the superior aspect of the liver through the pubic symphysis following administration 85 mL of Omnipaque 350 intravenous contrast. Sagittal and coronal reformatted images were obtained on the technologist's workstation. Oral contrast: No This CT examination was performed using dose optimization techniques as appropriate, variously including the following: *Automated exposure control *Adjustment of mA and/or kV according to patient size (this includes techniques or standardized protocols for targeted exams where dose is matched to indication/reason for exam; i.e. extremities or head) *Use of iterative reconstruction technique DLP: 711 mGy-cm FINDINGS: LUNG BASES: The visualized lung bases are unremarkable. LIVER, GALLBLADDER, AND BILIARY TREE: The liver is normal in size, shape, and attenuation. No focal hepatic lesion or biliary ductal dilatation is present. The gallbladder is unremarkable with no evidence of radiopaque gallstones, gallbladder wall thickening, or obvious pericholecystic inflammatory changes. PANCREAS: Unremarkable. SPLEEN: Unremarkable. ADRENAL GLANDS: Unremarkable. KIDNEYS AND URETERS: The kidneys are normal in size, shape, and attenuation. There is right perinephric stranding. There is mild to moderate right hydronephrosis and hydroureter extending into the pelvis to the level of a 3 mm distal right ureteric calculus BLADDER: Unremarkable. GASTROINTESTINAL TRACT: There are diverticula of the descending and sigmoid colon without diverticulitis. The appendix is not seen. ABDOMINAL WALL: No significant hernia is appreciated. LYMPH NODES: Normal. VASCULAR: There is mild atherosclerotic plaque of the abdominal aorta. PELVIC VISCERA: Multiple uterine fibroids are noted measuring up to 2.6 cm OSSEOUS STRUCTURES: Unremarkable. CT/CT abdomen pelvis w IV con IMPRESSION: Mild to moderate right hydronephrosis and hydroureter extending into the pelvis to the level of a 3 mm distal right ureteric calculus. Diverticulosis without diverticulitis. Fibroid uterus. Fleischner guidelines were followed. Electronically signed by: Lam King MD 05/15/2024 05:30 AM EDT RP Operative Note Date of Service: 04/14/22 Narrative: Pre-op diagnosis: Follow-up of colon polyps Post-op diagnosis: other (Colon polyps, diverticulosis) Procedure: FLEXIBLE SIGMOIDOSCOPY TILL 20 CM WITH BIOPSIES Consent: Indications for the procedure and potential complications of bleeding, perforation, reaction to medications and missed diagnosis were discussed with the patient and informed consent was obtained. Instrument: Olympus PCF H 190 L variable stiffness pediatric colonoscope Monitoring: Vital signs and clinical assessment, intermittent blood pressure monitoring, continuous EKG monitoring, Pulse oximetry and Carbon Dioxide monitoring were done throughout the procedure. Procedure: The patient was placed in the left lateral decubitis position and pre-procedure medications were administered. After a digital rectal examination of the ano-rectum, the video colonoscope was inserted into the rectum and advanced through the colon to 20 cms. The colonoscope was slowly withdrawn in a retrograde panoramic fashion and the colon mucosa was carefully examined including a retroflexed view of the rectum. Findings and interventions are described below. Procedure Difficulty: Without difficulty Findings: Sigmoid Colon: Moderate diverticulosis Rectum: A few 2-4 mm diminutive appearing polyps - one removed with a cold bx. Polypectomy site examined in the distal rectum and 10 -12 mm of ? adenomatous tissue at the margin - removed with a cold bx Ano-rectum: Normal Colon preparation: Good Impression and Post Procedure Diagnosis: Flexible sigmoidoscopy Findings: A few 2-4 mm diminutive appearing polyps - one removed with a cold bx. Polypectomy site examined in the distal rectum and 10 -12 mm of ? adenomatous tissue at the margin - removed with a cold bx Moderate diverticulosis seen in the sigmoid colon Plan: Await pathology results Patient has an appointment on 05/04/22 in the GI Clinic with LISA Buckner . Repeat Colonoscopy interval based on path results - in 3-5 years if polyps are adenomatous and 10 years if polyps are hyperplastic. Above findings were reviewed with the patient and colon polyps handout was given in the discharge area BIOPSIES SHOWED: A. Colon, rectal polyp: Hyperplastic polyp. B. Colon, polypectomy site, biopsies: Colonic mucosa with mild hyperplastic changes and squamo-transitional mucosa; negative for adenomatous dysplasia. Surgeon: Lebron Crow MD Operative Note Date of Service: 01/09/22 Narrative: Pre-op diagnosis: Colon cancer screening, chronic constipation, rectal bleeding Post-op diagnosis:?other (Colon polyps, diverticulosis, aphthoid ulcers in the cecum) Procedure: COLONOSCOPY TILL CECUM WITH BIOPSIES, SNARE POLYPECTOMY, SUBMUCOSAL INJECTION AND HEMOCLIP PLACEMENT Procedure: The patient was placed in the left lateral decubitis position and pre-procedure medications were administered. After a digital rectal examination of the ano-rectum, the video colonoscope was inserted into the rectum and advanced through the colon to the cecum. The colonoscope was slowly withdrawn in a retrograde panoramic fashion and the colon mucosa was carefully examined including a retroflexed view of the rectum. Findings and interventions are described below. Procedure Difficulty: Without difficulty Findings: Terminal Ileum: Distal 10 cms was examined and appeared normal Cecum: 2-3 mm aphthoid ulcers in the cecum - biopsies were obtained Ascending Colon:? Normal Transverse Colon:? Normal Descending Colon:? Normal Sigmoid Colon:? Moderate diverticulosis Rectum:? A few 2-4 mm diminutive appearing polyps - two removed by cold bx. A 3 x 2.5 cms polyp in the distal rectum 1-2 cms above the anal verge seen on retroflexed exam.? Polyp was raised with 8 cc of Orise solution and removed piece meal with a hot snare.? Some bleeding noted at polypectomy site which was controlled with 4 cc of 1:10, 000 epinephrine injection and placement of 2 hemoclips. Ano-rectum:? No hemorrhoids seen. Colon preparation: Excellent ? Impression and Post Procedure Diagnosis: Colonoscopy Findings: A few 2-4 mm diminutive appearing polyps - two removed by cold bx. A 3 x 2.5 cms polyp in the distal rectum 1-2 cms above the anal verge seen on retroflexed exam removed with a hot snare. Some bleeding noted at polypectomy site which was controlled with 4 cc of 1:10, 000 epinephrine injection and placement of 2 hemoclips. 2-3 mm aphthoid ulcers in the cecum - biopsies were obtained from the cecum, right and left colon. Moderate diverticulosis seen in the sigmoid colon Plan: Await pathology results Patient has an appointment on 01/25/22 in the GI Clinic with LISA Buckner. Repeat Colonoscopy interval based on path results - Flex sig with colon prep in 3 months to check polypectomy site in the rectum. Repeat Colonoscopy in 1 year if polyps are adenomatous. Above findings were reviewed with the patient and colon polyps and diverticulosis handouts were given in the discharge area Surgeon: Lebron Crow MD Assessment & Plan Assessment & Plan (1) Tubular adenoma: Comment: 04/14/22 FLEXIBLE SIGMOIDOSCOPY to colon at 20 cms with good prep- Moderate diverticulosis ( Sigmoid), 2-4 mm Hyperplastic polyp (Rectum). Recommendations for repeat in 10 years. 01/09/22 colonoscopy complete with excellent prep -HP and TA to rectum with focal high-grade dysplasia ( polypectomy with ORISE), 2-3 mm aphthoid ulcers ( cecum), Moderate diverticulosis ( sigmoid). Code(s): D36.9 - Benign neoplasm, unspecified site Category: Medical Plan: Past polyps with confirmed pathology on most recent endoscopy; small, prec ancerous and benign. However, prior TA with focal high-grade dysplasia; surveillance necessary. Additional Testing: Colonoscopy ordered (surveillance interval per guidelines and shared decision-making); bowel prep instructions given (in Turkmen as requested). Medication Management: Hold Mounjaro 7 days before procedure; no other changes. Lifestyle Recommendations: Adhere to clear liquid diet prior to colonoscopy; avoid red/blue/purple liquids during prep; require tour driver for sedation. Follow-Up: Colonoscopy scheduled; reassess risk and surveillance interval post- result. (2) GERD (gastroesophageal reflux disease): Code(s): K21.9 - Gastro-esophageal reflux disease without esophagitis Category: Medical Qualifiers: Esophagitis presence: esophagitis presence not specified Qualified Code(s): K21.9 - Gastro-esophageal reflux disease without esophagitis Plan: Classic symptoms with regurgitation, aggravation by fatty foods, prior trial of PPI, improved by dietary modification. Additional Testing: Upper endoscopy ordered to be performed at time of colon screening. Medication Management: Reinstitute omeprazole 20 mg PO QD; prescription sent (counseled on taking 30 min AC). Lifestyle Recommendations: Continue to avoid fatty/greasy foods; maintain upright posture after meals; monitor for alarm symptoms (dysphagia, weight loss, GI bleeding). Follow-Up: Post-procedural; reassess GERD management after upper endoscopy. (3) Constipation: Code(s): K59.00 - Constipation, unspecified Category: Medical Qualifiers: Constipation type: drug induced constipation Qualified Code(s): K59.03 - Drug induced constipation Plan: New onset constipation following Mounjaro initiation; classic with reduced hydration, pellet-like stools, lower abdominal pain relieved by BM. Additional Testing: None at present; monitor symptoms; colonoscopy and related studies planned. Medication Management: Initiate Miralax (polyethylene glycol); prescription provided; bowel prep (GoLytely + laxative/gas tablets) for upcoming colonoscopy. Lifestyle Recommendations: Increase fluid and fiber intake (fruits, vegetables, legumes); continue efforts at hydration; pause Mounjaro 7 days prior to colonoscopy per prep instructions. Follow-Up: Contact clinic if severe or persistent constipation prior to procedure; review constipation management post-procedure. Plan Follow-up after endoscopy or sooner as needed Time: I spent a total of 36 minutes on the date of encounter which includes: Preparing to see the patient (reviewed previous documentation, test results and medical history) Performing a medically appropriate exam and/or evaluation Ordering medications, tests, and procedures Documenting clinical information in the health record Orders: Referrals GI Procedure Notification D36.9 - Benign neoplasm, unspecified site, K21.9 - Gastro-esophageal reflux disease without esophagitis Medications: New polyethylene glycol 3350 (Miralax) Take 17G (one cap full) daily with 8oz of water 17 grams PO DAILY 510 grams 2RF constipation 30 days bisacodyl Take per colonoscopy instructions 20 mg (4 x 5 mg) PO ONCE 4 tabs 0RF simethicone (Gas Relief (simethicone)) per colonoscopy prep instructions 500 mg (4 x 125 mg) PO ONCE 4 caps 0RF peg 3350-electrolytes 236-22.74-6.74 -5.86 gram until fecal effluent is clear 240 mL PO ONCE 4,000 mL 0RF Changed From omeprazole 20 mg PO DAILY To omeprazole Take on tablet daily on empty stomach, delay food 30 minutes. 20 mg PO DAILY 90 caps 1RF Coding Level of Care Code New Pt New Pt Level 3 (41724) Patient Type New Diagnoses Tubular adenoma D36.9 Gastroesophageal reflux disease, unspecified whether esophagitis present K21.9 Esophagitis presence: esophagitis presence not specified Drug-induced constipation K59.03 Constipation type: drug induced constipation
[2025-05-07 15:08] VITALS: O2SAT 98; BMI 32.7
--- OUTSIDE RECORDS SUMMARY | 2025-05-07 18:58 | XMS_ITS | Encounter Summary ---
Author Organization [employer] Address [address] [facility] [address] [place] [address] Care Team Providers Care Manufacturing Controls Engineer Name Role Phone Gisele Rodriguez RETAIL LOSS PREVENTION INVESTIGATOR Primary Care Provider [phone] Encounter Details Date Type Department Care Team ([facility] st Contact Info) Description 11/18/2024 Orders Only [facility]ED[facility] [address] [place], [place] [phone] Amelia Reyes Social History Tobacco Use Types [...] Care Team (Late st Contact Info) Description 06/05/2025 10:00 AM EST Office Visit [facility] [address] [place] [address] Gisele Rodriguez FNP [address] [place] [address] documented as of this encounter Procedures Procedure Name Priority Date/Time Associated Diagnosis Comments HPV MRNA E6/E7 REFLEX TO HPV 16, 18/45 Routine 06/16/2024 12:00 AM EST documented in this encounter Results * (ABNORMAL) HPV mRNA E6/E7 w/Reflex to HPV Genotypes 16, 18/45 (06/16/2024 12:00 AM EST) us Historical Provider LAB CYTOLOGY ORDERABLES F inal Result [facility] [address] [place] [address] [phone] documented in this encounter Visit Diagnoses Not on filedocumented in this encounter Additional Health Concerns Assessment Noted Time PHQ-9 Depression Total Score: 0 07/07/20 24 9:44 AM EST documented as of this encounter Care Teams Manufacturing Controls Engineer Relationship Specialty Start Date End Date Gisele Rodriguez FNP [address] [place] [address] PCP - General Family Medicine 08/16/22 documented as of this encounter
--- OUTSIDE RECORDS SUMMARY | 2025-05-07 18:58 | XMS_ITS | Encounter Summary ---
Author Organization [employer] [facility] Address [address] [place] [address] Care Team Providers Care Brush Maker Machine Name Role Phone Julisa Klein MD Primary Care Provider Angélica Hydeside [facility] Primary Care Provider [phone] Encounter Details Date Type Department Care Team (Latest Contact Info) Description 05/29/2019 Abstract [facility] CONVERSIONS Dental, Provider, DDS Social History [...] Care Team ( st Contact Info) Description 06/05/2025 10:00 AM EST Office Visit [facility] [address] [place] [address] [place] [facility] [address] [place] [address] documented as of this encounter Visit Diagnoses Not on filedocumented in this encounter Care Teams Brush Maker Machine Relationship Specialty Start Date End Date Julisa Klein MD PCP - General Family Medicine 06/25/19 08/15/[address] [facility] [address] [place] [address] PCP - General Family Medicine 08/16/22 documented as of this encounter
--- OUTSIDE RECORDS SUMMARY | 2025-05-07 18:58 | XMS_ITS | Encounter Summary ---
Author Organization [employer] Address [address] [facility] [address] [place] [address] Care Team Providers Care Equipment Operator [employer] Name Role Phone Gisele Rodriguez FUEL ASSEMBLER Primary Care Provider [phone] Encounter Details Date Type Department Care Team ([facility] st Contact Info) Description 06/08/2023 Abstract [facility] MEDICINE [address] [place], [place] [phone] Amelia Reyes Social History Tobacco Use Types [...] Office Visit [facility] MEDICINE [address] [place] [address] Gisele Rodriguez FNP [address] [place] [address] documented as of this encounter Visit Diagnoses Not on filedocumented in this encounter Additional Health Concerns Assessment Noted Time PHQ-9 Depression Total Score: 0 04/18/20 10:13 AM EDT documented as of this encounter Care Teams Equipment Operator [employer] Yard Relationship Specialty Start Date End Date Gisele Rodriguez FNP [address] [place] [address] PCP - General Family Medicine 08/16/22 documented as of this encounter
--- OUTSIDE RECORDS SUMMARY | 2025-05-07 18:59 | XMS_ITS | Encounter Summary ---
Author Organization [employer] [facility] Address [address] [place] [address] Care Team Providers Care Planner/Scheduler Name Role Phone Julisa Klein MD Primary Care Provider Angélica Hydeside [facility] Primary Care Provider [phone] Encounter Details Date Type Department Care Team (Latest Contact Info) Description 12/14/2021 Abstract [facility] CONVERSIONS Dental, Provider, DDS Social [...] Description 06/05/2025 10:00 AM EST Office Visit [facility] MEDICINE [address] [place] [address] [place] [facility] [address] [place] [address] documented as of this encounter Visit Diagnoses Not on filedocumented in this encounter Care Teams Planner/Scheduler Relationship Specialty Start Date End Date Julisa Klein MD PCP - General Family Medicine 06/25/19 08/15/22 [place] [facility] [address] [place] [address] PCP - General Family Medicine 08/16/22 documented as of this encounter
--- OUTSIDE RECORDS SUMMARY | 2025-05-07 18:59 | XMS_ITS | Encounter Summary ---
Author Organization [employer] Address [address] [facility] [address] [place] [address] Care Team Providers Care Tooth Inspector Name Role Phone Gisele Rodriguez JEWELRY BENCH MOLDER Primary Care Provider Encounter Details Date Type Department Care Team ([facility] st Contact Info) Description 09/23/2024 Orders Only [facility] PEDS [address] [place], [place] [phone] Amelia Reyes Social History Tobacco Use Types [...] Description 06/05/2025 10:00 AM EST Office Visit [facility] [address] [place] [address] Gisele Rodriguez [facility] [address] [place] [address] documented as of this encounter Procedures Procedure Name Priority Date/Time Associated Diagnosis Comments COLPOSCOPY Routine 09/17/2024 12:00 AM EST documented in this encounter Results * Colposcopy (09/17/2024 12:00 AM EST) us Historical Provider MD IN CLINIC/BEDSIDE ORDERAB LES Final Result [facility] [address] [place] [address] [phone] documented in this encounter Visit Diagnoses Not on filedocumented in this encounter Additional Health Concerns Assessment Noted Time PHQ-9 Depression Total Score: 0 07/07/20 24 9:44 AM EST documented as of this encounter Care Teams Tooth Inspector Relationship Specialty Start Date End Date Gisele Rodriguez FNP [address] [place] [address] PCP - General Family Medicine 08/16/22 documented as of this encounter
--- OUTSIDE RECORDS SUMMARY | 2025-05-07 18:59 | XMS_ITS | Clinical Summary ---
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 18 g 11 01/16/20 23 Active Alcohol Swabs (Alcohol Prep) padsIndications:T ype 2 diabetes mellitus without complication, without long-term current use of insulin (HCC) Use one pad each to prep skin prior to injection as directed 100 each 11 01/16/20 23 Active Lancets 33G miscIndications:T ype 2 diabetes mellitus without complication, without long-term current use of insulin (HCC) Use as directed to check blood sugar four times daily 100 each 3 01/16/20 23 Active Blood Glucose Monitoring Suppl (GNP Easy Touch Glucose Meter) deviceIndications :Type 2 diabetes mellitus without complication, without long-term current use of insulin (HCC) Use as directed to check blood sugar four times daily 1 each 01/16/20 23 Active glucose blood test stripIndications: Type 2 diabetes mellitus without complication, without long-term current use of insulin ([facility]) Use as directed to check blood sugar four times daily 100 each 12 01/16/20 23 Active Diclofenac Sodium 1 % gelIndications:Pa in APPLY 2 GRAMS TOPICALLY TO AFFECTED AREA(S) FOUR TIMES DAILY DIRECTED 100 g 1 03/31/20 24 Active omeprazole (PriLOSEC) [address] capsuleIndication s:Type 2 diabetes mellitus without complication, without long-term current use of insulin (HCC) Take 1 capsule (20 mg) by mouth [...] DIRECTED 15 g 1 04/30/20 24 Active sertraline (Zoloft) 50 MG tabletIndications :Anxiety Take 1 tablet (50 mg) by mouth Once per day. 30 tablet 11 06/09/20 24 2024 Active metFORMIN (Glucophage) 500 MG tablet TAKE 1 TABLET BY MOUTH TWICE DAILY IN THE MORNING AND IN THE EVENING WITH MEALS 180 tablet 3 08/22/19 25 Active amLODIPine (Norvasc) 5 MG tabletIndications :Essential hypertension TAKE 1 TABLET BY MOUTH EVERY DAY 90 tablet 3 08/22/19 25 Active D3 Super Strength 50 MCG (1999 UT) capsule TAKE 1 CAPSULE BY MOUTH EVERY DAY 90 capsule 1 11/20/19 25 Active meloxicam (Mobic) 7.5 MG tabletIndications :Chronic pain of both knees TAKE 1 TABLET BY MOUTH EVERY DAY IN THE MORNING, AND TAKE 1 ADDITIONAL TABLET NEEDED FOR PAIN, DO NOT EXCEED 2 TABLETS / 24 HOURS 30 tablet 3 01/15/20 25 Active atorvastatin (Lipitor) 40 MG tabletIndications :Mixed hyperlipidemia TAKE 1 TABLET BY MOUTH EVERY DAY 90 tablet 1 02/19/20 25 Active Tirzepatide (Mounjaro) 2.5 MG/0.5ML solution auto-injectorIndi cations:Type 2 diabetes mellitus with hyperglycemia, without long-term current use of insulin (HCC) Inject 2.5 mg under the skin 1 (one) time per week. 2 mL 2 03/02/20 25 Active fexofenadine (Kendal) 60 MG tabletIndications :Allergic rhinitis, unspecified seasonality, unspecified trigger TAKE 1 TABLET BY MOUTH TWICE DAILY 180 tablet 1 04/27/20 25 Active fexofenadine (Kendal) 60 MG tabletIndications :Allergic rhinitis, unspecified seasonality, unspecified trigger TAKE 1 TABLET BY MOUTH TWICE DAILY 180 tablet 1 06/16/20 24 2024 Discontinued Active Problems Problem Noted Date Diagnosed Date NAFLD (nonalcoholic fatty liver disease) 023 Overview (04/17/2023): Abdominal ultrasound 02/2023 with the following impression : generalized increase in hepatic echotexture, consistent with fatty infiltration or hepatocellular disease. No focal hepatic mass or intrahepatic biliary dilatation is seen. There is borderline dilatation of the common bile duct. FIB 4= 0.84, exculding advanced fibrosis Assessment & Plan (04/26/2023 10:28 AM EDT): Counseled on diet/exercise Will continue to monitor No indication for GI referral at this time Healthcare maintenance 02/17/2023 Overview (07/18/2023): Mammo: 06/2022 normal -- Pap: Nil HPV+ 03/2022 NIL HPV neg 05/2023 Repeat due 03/2024 C-scope: 2021, q. 3 years d/t polyp BMD: Routine age 65 Eye Exam: 2022 with [facility] Assessment & Plan (08/03/2023 9:35 AM EST): Declines covid vaccine Will request recent mammo rpeort Assessment & [...] (A) 04/18/2023 Well controlled Continue current regimen Complete microalbumin screen Assessment & Plan (04/26/2023 10:28 AM EDT): Lab Results Component Value Date HGBA1C 6.2 (A) 04/18/2023 Well controlled Continue current regimen Foot exam completed today RISK 0 Microalbumin ordered Assessment & Plan (08/25/2022 6:17 [...] Assessment & Plan (08/03/2023 9:33 AM EST): Well controlled Continue current regimen Assessment & Plan (04/26/2023 10:26 AM EDT): Well controlled Continue current regimen Mixed hyperlipidemia 06/28/2016 Overview (04/26/2023): Atorvastatin 40mg ASCVD risk 01/2023 7.4% Assessment & Plan (08/03/2023 9:33 AM EST): Well controlled Continue current regimen Assessment & Plan (04/26/2023 10:27 AM EDT): Continue current regimen Vitamin D deficiency 06/28/2016 Depressive disorder 12/26/2013 Assessment & Plan (08/03/2023 9:36 AM EST): Hx of depression/anxiety. No current medication. Not working with a therapist Declines referral at this time Will continue to monitor sx Contact HC if sx worsen or experiencing thoughts of SI or self harm. Pt has N crisis contact information Allergic rhinitis 07/30/2012 Assessment & Plan (08/25/2022 6:17 AM EST): - continue current medications per PCP Anxiety 05/28/2012 Overview (11/01/2023): Establshed with therapist Obesity 05/28/2012 Encounters Date Type Department Care Team Description 04/27/2025 Refill [facility] [place] [address] Gisele Rodriguez FNP Allergic rhinitis, unspecified seasonality, unspecified trigger 03/02/2025 9:00 AM EDT Office Visit [facility] [place] [address] Gisele Rodriguez FNP Type 2 diabetes mellitus with hyperglycemia, without long-term current use of insulin ([facility]); Dietary counseling; Exercise counseling 03/02/2025 Travel 03/01/2025 Travel 02/27/2025 Telephone [facility] [address] [place] [address] Gisele Rodriguez FNP Chart Prep 02/19/2025 Patient Outreach [facility] [address] [place] [address] Gisele Rodriguez FNP Pre-visit Planning (SDOH screening completed on 01/02/2025) 02/18/2025 Refill [facility] [address] [place] [address] [place], Gisele, NETWORK PRICING CONSULTANT Mixed hyperlipidemia from Last 3 Months Immunizations Immunization Administration Dates Next Due Hep B, adult [...] Answer Date Recorded Patient Health Questionnaire-9 Score 11 03/02/2025 Patient Health Questionnaire-9 Score 11 03/02/2025 Last PHQ-9: Questionnaire Data Not on file 0 03/02/2025 Housing Stability Answer Date Recorded What is your housing situation today? I have rosalie lynne 01/02/[address] you li ve. Do you have problems with any of the following? None of the above 01/02/2025 Food Insecurity Answer Date Recorded Within the past 12 months, y ou worried that your food would run out before you got money to buy more: Never True 01/02/2025 Within the past 12 months,th e food you bought just didn't last and you didn't have enough money to get more: Never True Transportation Answer Date Recorded In the past 12 months, has l ack of transportation kept you from medical appts, meetings, work or from getting things needed for daily living? No 01/02/2025 Utilities Answer Date Recorded In the past 12 months, has t he electric, gas, oil or water company threatened to shut off services in your home? No 01/02/2025 Depression Answer Date Recorded Patient Health Questionnaire-2 Score 2 03/02/2025 Internet Access Answer Date Recorded Internet Access Q1 Yes 01/02/2025 Internet Access Q2 Not on file 01/02/2025 Comments Unknown Sex and Gender Information Value Date Recorded Sex Assigned at Female 05/22/2022 10:21 AM EDT Legal Sex Female 10:21 AM EDT Gender Identity Female 05/22/2022 10:21 AM EDT Sexual Orientation Straight 05/22/2022 10 :21 AM EDT Last Filed Vital Signs Vital Sign Reading Time Taken Comments Blood Pressure 138/80 03/02/2025 8:58 AM EDT Pulse 84 03/02/2025 8:58 AM EDT Temperature 37.1 C (98.8 F) 03/02/2025 8:58 AM EDT Respiratory Rate 18 03/02/2025 8:58 AM EDT Oxygen Saturation 98% 07/07/2024 9:43 AM EST Inhaled Oxygen Concentration - - Weight 85.7 kg (189 lb) 03/02/2025 8:58 AM EDT Height 157.5 cm (5' 2 ) 03/02/2025 8:58 AM EDT Body Mass Index 34.57 03/02/2025 8:58 AM EDT Plan of Treatment Upcoming Encounters Date Type Department Care Team (Late st Contact Info) Description 06/05/2025 10:00 AM EST Office Visit [facility] [address] [place] [address] [facility] [address] [place] [address] Health Maintenance Due Date Last Done Comments CT Colonography 1965 Dental Oral Exam 1965 Dental Prophylaxis 1965 FIT DNA/Cologuard 1965 FIT 1965 FOBT 1965 Sigmoidoscopy 1965 Hepatitis A Vaccines (1 of 2 - Risk 2-dose series) 01/19/1984 Hepatitis B Vaccines (3 of 3 - Risk 3-dose series) 11/21/2010 09/26/2010, 11/30/2009 Dental X-Ray: Bitewings 08/29/2023 08/28/2022 RSV Patients and Patients Aged 60 years or older (1 - Risk 60-74 years 1-dose series) 2025 COVID-19 Vaccine ( season) 2025 08/03/2021, 11/22/2020, 10/25/2020 Colonoscopy 03/23/2025 03/23/2022 Colorectal Cancer Screening 03/23/2025 Influenza Vaccine (#1) 2025 8, 06/23/2016, 06/23/2015, Additional history exists Diabetes: Foot Exam 04/02/2025 04/02/2024, 04/02/2024, 04/02/2024, Additional history exists HPV/Cotest 06/16/2025 06/16/2024, 11/0 09/2022, 04/21/2022, Additional history exists Diabetes: Urine Protein Screening 07/07/2025 07/07/2024, 04/15/2020 Lipid Panel 07/07/2025 07/07/2024, 07/1 01/2023, 05/16/2021, Additional history exists Mammogram 08/18/2025 08/18/2024, 12/0 02/2021, 05/31/2018 Dental X-Ray: Full Mouth 08/29/2025 08/28/2022 Depression Monitoring 09/02/2025 03/02/2025, 025 Diabetes: Hemoglobin A1C 09/02/2025 025, 07/07/2024, 04/02/2024, Additional history exists Cervical Cancer Screening 09/17/2025 Pap Smear 09/17/2025 06/16/2024, 11/0 09/2022, 04/21/2022 SDOH Screening 01/02/2026 01/02/2025 Disability Screening 01/11/2026 01/11/2025 Alcohol/Substance Use Screening 03/02/2026 03/02/2025 Tobacco Screening 03/02/2026 03/02/2025 Eye Exam 09/17/2026 09/17/2024, 08/24, 09/17/2024, Additional history exists DTaP/Tdap/Td Vaccines (2 - Td or Tdap) 06/17/2028 06/17/2018, 08/26/2009 Zoster Vaccines Completed 03/23/2022, 12/26/2021 HIV Screening [...] patient's age to complete this topic Meningococcal B Vaccine Aged Out No l onger eligible based on patient's age to complete [...] Procedure Name Priority Date/Time Associated Diagnosis Comments POCT GLUCOSE Routine 03/02/2025 8:59 AM EDT Type 2 diabetes mellitus with hyperglycemia, without long-term current use of insulin ([facility]) POCT GLYCATED HEMOGLOBIN, TOTAL Routine 03/02/2025 8:59 AM EDT Type 2 diabetes mellitus with hyperglycemia, without long-term current use of insulin ([facility]) BI MAMMOGRAM SCREENING TOMOSYNTHESIS BILATERAL Routine 08/18/2024 [...] 16, 18/45 Routine 06/16/2024 12:00 AM EST HEPATITIS PANEL, GENERAL Routine 02/14/2023 8:54 AM EDT Elevated liver enzymes HIV 1 RNA, QUANTITATIVE REAL TIME PCR Routine 02/05/2023 8:41 AM EDT INTRAORAL - COMPLETE SERIES OF RADIOGRAPHIC IMAGES Routine 08/28/2022 11:30 AM EST HM COLONOSCOPY Routine 03/23/2022 from Last 3 Months or Most Recently Relevant to Health Maintenance Results * (ABNORMAL) POCT HGB A1C (03/02/2025 8:59 AM EDT) Hemoglobin A1C 6.4(A) 4.0 - 5.7 % Blood 03/02/2025 8:59 AM EDT [facility] POINT OF CARE TEST ENTER/EDIT ORDERABLES Final Result * POCT Glucose (03/02/2025 8:59 AM EDT) Glucose Blood, POC 181 60 - 200 mg/dL Blood Capillary blood specimen / Unknown 03/02/2025 8:59 AM EDT [facility] POINT OF CARE TEST ENTER/EDIT ORDERABLES Final Result * BI Mammogram Screening Tomosynthesis Bilateral (08/18/2024 3:35 PM EST) Anatomical Region Laterality Modality Breast Bilateral Mammography 08/18/2024 3:35 PM EST Narrative 08/27/2024 12:34 PM EST [address] [place] [address] Mammography Report Signed Patient: Mary Redding MR#: [id number] : 1965 Acct:[id number] Age/Sex: 59 / F ADM Date: 08/18/24 Loc: HO.MAMMO Attending Dr: Gisele Rodriguez NETWORK PRICING CONSULTANT Ordering Physician: Gisele Rodriguez NETWORK PRICING CONSULTANT Results: 1Nega tive Date of Service: 08/18/24 Follow Up: 1 Year From Orig inal Mammogram Procedure(s): MM tomosynthesis screening BI Accession Number(s): [id number] cc: Gisele Rodriguez NETWORK PRICING CONSULTANT EXAMINATION: MM SCREENING DIGITAL BREAST TOMOSYNTHESIS, BILATERAL [...] 08/27/24 1229 DD/ 1535 TD/TT: 08/18/24 1554 Fur Tinter: Procedure Note Donotuseinterpreter, Image - 08/27/[address] [place] [place] [address] Mammography Report Signed Patient: Mary Redding#: [id number] : 1965Acct:[id number] Age/Sex: 59 / FADM Date: 08/18/24 Loc: MAMMO Attending Dr: Gisele Rodriguez NETWORK PRICING CONSULTANT Ordering Physician: Gisele Rodriguez FNPResults: 1Nega tive Date of Service: 08/18/24Follow Up: 1 Year From Orig inal Mammogram Procedure(s): MM tomosynthesis screening BI Accession Number(s): [id number] cc: [place] NETWORK PRICING CONSULTANT EXAMINATION: MM SCREENING DIGITAL BREAST TOMOSYNTHESIS, BILATERAL [...] 08/27/24 1229 DD/ 1535 TD/TT: 08/18/24 1554 Fur Tinter: [facility] IMG BI PROCEDURES Edited Resu lt - Final * Albumin, Random Urine W/Creatinine (07/07/2024 10:20 AM EST) Creatinine, Urine 76.65 mg/dL [facility] Microalbumin Urine 7.0 mg/L [facility] Microalbum Creatinine Ratio Ur 9.1 <30 ug/mg cr [facility] Comment:Albumin/Creatinine R atio Reference Ranges: Normal: < 30 ug/mg creatinine Microalbuminuria: 30 - 300 ug/mg creatinineClinical Albuminuria: > 300 ug/mg creatinine Urine 07/07/2024 10:2 0 AM EST 07/07/2024 11:59 AM EST [facility] URINE ORDERABLES Final Re sult Performing Organization Address City/[facility] Co de Phone Number [facility] [address] [place] [address] [phone] * (ABNORMAL) Lipid Panel, Standard (07/07/2024 10:20 AM EST) Triglycerides 188(H) <150 mg/dL [facility] Comment:Desirable Triglyceri de: less than 150 mg/dLBorderline High Triglyceride 150-199 mg/dLHigh Triglyceride: 200-499 mg/dLVery High Triglyceride: greater than or equal to 5OO mg/dL Cholesterol 167 <200 mg/dL [facility] Comment:Desirable Cholestero l: less than 200 mg/dLBorderline High Cholesterol: 200-239 mg/dLHigh Cholesterol: greater than 239 mg/dL LDL Cholesterol Calculated 84 <100 mg/dL [facility] Comment:Desirable LDL: less than 100 mg/dLNear Optimal/Above Optimal LDL: 110- 129 mg/dLBorderline High LDL: 130-159 mg/dLHigh LDL: 160-189 mg/dLVery High LDL: greater than or equal to 190 mg/dL HDL Cholesterol 46 >40 mg/dL [facility] Comment:Desirable HDL: great er than 40 mg/dL Note: This HDL assay may give artificially low results in patients with liver disease. Blood Venous blood specimen / Unknown 07/07/2024 10:20 AM EST 07/07/2024 12:07 PM EST [facility] BLOOD ORDERABLES Final Re sult [facility] [address] [place] [address] [phone] * Pap Smear (06/16/2024 9:15 AM EST) Swab Cervix uteri structure / Unknown 06/16/2024 9:15 AM EST 06/16/2024 2:15 PM EST Narrative [facility] - 06/25/2024 11:08 AM EST ----- ------- Name: Mary Redding Age/Sex: 59/F : 1965 Unit#: [id number] Attend Dr: Re06/16/24 Status: PRE REF Location: [facility] Disch: ----- ------- SPEC : [id number] RECD: 06/16/24 STATUS: SUSANNAH VICENTE NUM: [id number] ASHLYN: 06/16/[address] [facility] [address]: Gisele Rodriguez NETWORK PRICING CONSULTANT ENTERED: 06/16/24 SP TYPE: Pap [facility] : ORDERED: Pap Smear, PAP path review Interpretation Satisfactory for evaluation. ABNORMAL PAP TEST. Satisfactory for evaluation, with atypical squamous cells of undetermined significance (ASC-US). HPV High Risk: Positive HPV Genotyping 16: Negative HPV Genotyping 18: Negative Clinical Information LMP: Postmenopausal Previous PAP test: 2021, + HPV Material Received ThinPrep-Cervical ----- ------- Signed (signature on file) Prince Arita MD 06/25/24 1108 ----- ------- END OF REPORT [facility] CYTOLOGY ORDERABLES Final Result Performing Organization Address [facility] Co de Phone Number [facility] [address] [place] [address] [phone] * (ABNORMAL) HPV mRNA E6/E7 w/Reflex to HPV Genotypes 16, 18/45 (06/16/2024 12:00 AM EST) [facility] CYTOLOGY ORDERABLES F inal Result Performing Organization Address [facility] Co de Phone Number [facility] [address] [place] [address] [phone] * Hepatitis Panel, General (02/14/2023 8:54 AM EDT) Hepatitis A IgM Nonreactive Nonreactive [facility] Comment:IgM antibodies to CALLAHAN V not detected; does not exclude earlyacute or recovered HAV infection. ~Hepatitis B Surface Antibody GRAYZONE Nonreactive [facility] Comment:GRAYZONE: 8.00 mIU/m L TO 11.99 mIU/mLTHE IMMUNE STATUS OF THE INDIVIDUAL SHOULD BE FURTHERASSESSED BY CONSIDERING OTHER FACTORS, SUCH CLINICALSTATUS, FOLLOW-UP TESTING, ASSOCIATED RISK FACTORS, AND THEUSE OF ADDITIONAL DIAGNOSTIC INFORMATION. Hepatitis B Core Antibody Nonreactive Nonreactive [facility] Hepatitis C Antibody Nonreactive Nonreactive [facility] Comment:Antibodies to HCV no t detected; does not exclude early acuteHCV infection. Hepatitis B Surface Ag Negative Negative [facility] Blood 02/14/2023 8:54 AM EDT 02/14/2023 11:21 AM EDT [facility] BLOOD ORDERABLES Final Re sult Performing Organization Address [facility] Co de Phone Number [facility] [address] [place] [phone] * HIV-1 RNA, Quantitative, Real-Time PCR (02/05/2023 8:41 AM EDT) HIV RNA PCR Qn Copies NOT DETECTED NOT DETECTED copies/mL [facility] HIV RNA PCR Qn Log Copies NOT DETECTED NOT DETECTED [facility] Comment:Result Units: Log co pies/mLThis test was performed using Real-Time Polymerase ChainReaction.Reportable Range: 20 copies/mL to 10,000,000 copies/mL(1.30 log copies/mL to 7.00 log copies/mL).THIS TEST WAS PERFORMED AT:[facility] [place] [id number] DRAPER MD 02/05/2023 8:41 AM EDT 02/05/2023 11:44 AM EDT [facility] BLOOD ORDERABLES Final Re sult Performing Organization Address [facility] Co de Phone Number [facility] [address] [place] [phone] * (ABNORMAL) Hm Colonoscopy (03/23/2022) Colonoscopy Abnormal(A ) Normal Historical Provider HEALTH MAINTENANCE Final Result from Last 3 Months or Most Recently Relevant to Health Maintenance Insurance [facility] C3 HS FULL DENTAL-[facility] MEDICAID STAND ADULT Care Teams Calculating Machine Mechanic Relationship Specialty Start Date End Date Gisele Rodriguez FNP [address] [place] [address] PCP - General Family Medicine 08/16/22
== END 2025-05-07 15:46 | disposition home or self-care (01) ==
LOC: HO.HGI 15:05
PROVIDERS: PCP Registered Nurse; Visit Provider Nurse Practitioner Family
DX: D36.9 Benign neoplasm, unspecified site (principal); K21.9 Gastro-esophageal reflux disease without esophagitis; K59.03 Drug induced constipation
CPT/HCPCS: 99203

== ENCOUNTER → 2025-05-07 15:04 | Outpatient (BNVA) | payer MEDICAID, SELFPAY | PROVIDERS: PCP Registered Nurse; Visit Provider Nurse Practitioner Family | DX: D36.9 Benign neoplasm, unspecified site (principal); K21.9 Gastro-esophageal reflux disease without esophagitis; K59.03 Drug induced constipation | CPT/HCPCS: 99212 ==

== ENCOUNTER 2025-06-08 08:20 | Outpatient (REF) | payer MEDICAID, SELFPAY ==
[2025-06-08 12:27] LABS: Microalbum/Creatinine Ratio Ur 16.2 ug/mg cr (<30)
[2025-06-08 12:55] LABS: Cholesterol 182 mg/dL (<200); HDL Cholesterol 43 mg/dL (>40); Triglycerides 129 mg/dL (<150)
== END 2025-06-08 08:21 | disposition home or self-care (01) ==
LOC: HO.HHCL 08:20
PROVIDERS: PCP Registered Nurse; Visit Provider Registered Nurse
DX: E11.65 Type 2 diabetes mellitus with hyperglycemia (principal); R00.2 Palpitations
CPT/HCPCS: 36415; 80061; 82043; 82570; 84443

== ENCOUNTER 2025-06-16 09:54 | Outpatient (REF) | payer MEDICAID, SELFPAY ==
--- OUTSIDE RECORDS SUMMARY | 2025-06-16 11:46 | XMS_ITS | Encounter Summary ---
Author Organization [email or web address] Address [address] [facility] 7t [place] [address] Care Team Providers Care Lithographic Photographer Name Role Phone [place] [facility] Primary Care Provider [phone] Encounter Details Date Type Department Care Team ([facility] Contact Info) Description 06/10/2025 Results Follow-Up [facility] [address] [place], [place] [phone] [facility] [address] [place] [address] POCT Glucose, POCT Hgb A1c, Lipid Panel, Standard, Albumin, Random Urine W/Creatinine Social History Tobacco Use Types Packs/Day Years Used Date Smoking Tobacco: Former Cigarettes Passive Smoke Exposure: Past Smokeless Tobacco: Never Alcohol Use Standard Drinks/Week Comments Never 0 (1 standard drink = 0.6 oz pur e alcohol) Alcohol Answer Date Recorded How often do you have a drink containing alcohol ? 0 06/10/2025 How many drinks containing a lcohol do you have on a typical day when you are drinking? 0 06/10/2025 How often do you have six or more drinks on one occasion? 0 06/10/2025 Depression Answer Date Recorded Patient Health Questionnaire-9 Score 0 06/05/2025 Patient Health Questionnaire-9 Score 0 06/05/2025 Last PHQ-9: Questionnaire Data Not on file 1 08/05/2024 Housing Stability Answer Date Recorded What is [...] Date Recorded Patient Health Questionnaire-2 Score 0 06/05/2025 Internet Access Answer Date Recorded Internet Access Q1 Yes 01/02/2025 Internet Access Q2 Not on file 01/02/2025 Comments No Sex and Gender Information Value Date Recorded Sex Assigned at Female 05/22/2022 10:21 AM EDT Legal Sex Female 10:21 AM EDT Gender Identity Female 05/22/2022 10:21 AM EDT Sexual Orientation Straight 05/22/2022 10 :21 AM EDT documented as of this encounter Miscellaneous Notes * Telephone Encounter - Yesenia Borjas RN - 06/11/2025 11:33 AM EST TC placed to pt. And advised pt. Of bloodwork from 06/08/25 showing elevated LDLs, pt agrees to increase dose of atorvastatin to 40mg to 80mg daily. Rx pended. Otherwise informed pt. Lab results werestable and pt. Verbalizes understanding documented in this encounter Plan of Treatment Upcoming Encounters Date Type Department Care Team (Late st Contact Info) Description 09/04/2025 10:00 AM EST Office Visit [facility] [address] [place] [address] [facility], [facility] [address] [place], [place] [phone] 10/07/2025 9:00 AM EDT Office Visit [facility] [address] [place] [address] Kinga Wagner, OD [address] [place] [address] documented as of this encounter Goals Goal Patient Goal Type Associated Problems Recent Progress Patient-Stated? Author Help patients manage their type 2 diabetes Care Plan Help patients manage their type 2 diabetes No Hailey Wilks MA Weekly blood pressure task Care Plan Weekly blood pressure task No Hailey Wilks MA Help patients manage their type 2 diabetes Care Plan Help patients manage their type 2 diabetes No Hailey Wilks [place] Patient has chronic kidney disease Care Plan Patient has chronic kidney disease No Hailey Wilks MA Weekly blood pressure task Care Plan Weekly blood pressure task No Hailey Wilks [place] Patient has chronic kidney disease Care Plan Patient has chronic kidney disease No Hailey Wilks [place] Weekly blood pressure task Care Plan Weekly blood pressure task No Gisele Rodriguez FNP Weekly blood pressure task Care Plan Weekly blood pressure task No Gisele Rodriguez [facility] Patient has chronic kidney disease Care Plan Patient has chronic kidney disease No [place] [facility] Patient has chronic kidney disease Care Plan Patient has chronic kidney disease No Gisele Rodriguez [facility] Weekly blood pressure task Care Plan Weekly blood pressure task No Jamie-Re yes, OMAR Farrar Weekly blood pressure task Care Plan Weekly blood pressure task No Jamie-Re yes, OMAR Farrar Patient has chronic kidney disease Care Plan Patient has chronic kidney disease No Jamie-Re yes, OMAR Farrar Patient has chronic kidney disease Care Plan Patient has chronic kidney disease No Jamie-Re yes, OMAR Farrar Weekly blood pressure task Care Plan Weekly blood pressure task No Adirana Buckner MA Weekly blood pressure task Care Plan Weekly blood pressure task No Adriana Buckner [place] Patient has chronic kidney disease Care Plan Patient has chronic kidney disease No Adriana Buckner [place] Patient has chronic kidney disease Care Plan Patient has chronic kidney disease No Adriana Buckner MA Weekly blood pressure task Care Plan Weekly blood pressure task No Allison Becker FNP Weekly blood pressure task Care Plan Weekly blood pressure task No Allison Becker FNP Patient has chronic kidney disease Care Plan Patient has chronic kidney disease No Allison Becker FNP Patient has chronic kidney disease Care Plan Patient has chronic kidney disease No Allison Becker FNP Weekly blood pressure task Care Plan Weekly blood pressure task No Yesenia Borjas RN Weekly blood pressure task Care Plan Weekly blood pressure task No Yesenia Borjas RN Patient has chronic kidney disease Care Plan Patient has chronic kidney disease No Yesenia Borjas RN Patient has chronic kidney disease Care Plan Patient has chronic kidney disease No Yesenia Borjas RN Weekly blood pressure task Care Plan Weekly blood pressure task No Gisele Rodriguez FNP Weekly blood pressure task Care Plan Weekly blood pressure task No Gisele Rodriguez FNP Patient has chronic kidney disease Care Plan Patient has chronic kidney disease No Gisele Rodriguez FNP Patient has chronic kidney disease Care Plan Patient has chronic kidney disease No Gisele Rodriguez FNP documented as of this encounter Visit Diagnoses Diagnosis Mixed hyperlipidemia Anxiety Anxiety state, unspecified documented in this encounter Additional Health Concerns Active Problems Noted Date Diagnosed Date Help patients manage their type 2 diabetes 06/04 Weekly blood pressure task 06/04/2025 Help patients manage their type 2 diabetes 06/04 Patient has chronic kidney disease 06/04/2025 Weekly blood pressure task 06/04/2025 Patient has chronic kidney disease 06/04/2025 Weekly blood pressure task 06/05/2025 Weekly blood pressure task 06/05/2025 Patient has chronic kidney disease 06/05/2025 Patient has chronic kidney disease 06/05/2025 Weekly blood pressure task 06/08/2025 Weekly blood pressure task 06/08/2025 Patient has chronic kidney disease 06/08/2025 Patient has chronic kidney disease 06/08/2025 Weekly blood pressure task 06/09/2025 Weekly blood pressure task 06/09/2025 Patient has chronic kidney disease 06/09/2025 Patient has chronic kidney disease 06/09/2025 Weekly blood pressure task 06/09/2025 Weekly blood pressure task 06/09/2025 Patient has chronic kidney disease 06/09/2025 Patient has chronic kidney disease 06/09/2025 Weekly blood pressure task 06/10/2025 Weekly blood pressure task 06/10/2025 Patient has chronic kidney disease 06/10/2025 Patient has chronic kidney disease 06/10/2025 Weekly blood pressure task 06/10/2025 Weekly blood pressure task 06/10/2025 Patient has chronic kidney disease 06/10/2025 Patient has chronic kidney disease 06/10/2025 Assessment Noted Time PHQ-9 Depression Total Score: 0 06/05/20 10:08 AM EST documented as of this encounter Care Teams Lithographic Photographer Relationship Specialty Start Date End Date Gisele Rodriguez FNP [address] [place] [id number] PCP - General Family Medicine 08/16/22 documented as of this encounter
--- OUTSIDE RECORDS SUMMARY | 2025-06-16 11:46 | XMS_ITS | Encounter Summary ---
Author Organization [employer] Address [address] [facility] 7 [place] [address] Care Team Providers Care Boat Hoist Operator Helper Name Role Phone [facility] Primary Care Provider [phone] Reason for Visit * Reason Comments Med Refill Encounter Details Date Type Department Care Team ([facility] Contact Info) Description 06/11/[address] [facility] [address] [place], [place] [phone] [facility] [address] [place] [address] Anxiety Social History Tobacco Use Types Packs/Day Years [...] Description 09/04/2025 10:00 AM EST Office Visit [facility] [address] [place] [address] [facility] [address] [place] [address] 10/07/2025 9:00 AM EDT Office Visit [facility] [address] [place] [address] Bernard, Kinga, OD [address] [place] [address] documented as of this encounter Goals Goal [...] Care Plan Weekly blood pressure task No RaymondGisele [facility] Weekly blood pressure task Care Plan Weekly blood pressure task No Raymond Gisele [facility] Patient has chronic kidney disease Care Plan Patient has chronic kidney disease No RaymondGisele [facility] Patient has chronic kidney disease Care Plan Patient has chronic kidney disease No RaymondGisele [facility] Weekly blood pressure task Care Plan Weekly blood pressure task No Jamie-Re yes, OMAR Farrar Weekly blood pressure task Care Plan Weekly blood pressure task No Jamie-Re yes, Leni PA Patient has chronic kidney disease Care Plan Patient has chronic kidney disease No Jamie-Re yes, Leni PA Patient has chronic kidney disease Care Plan Patient has chronic kidney disease No Jamie-Re yes, OMAR Farrar Weekly blood pressure task Care Plan Weekly blood pressure task No Adriana Buckner MA Weekly blood pressure [...] Patient has chronic kidney disease No Yesenia Borjas, JULIET Patient has chronic kidney disease Care Plan [...] as of this encounter Visit Diagnoses Diagnosis Anxiety Anxiety state, unspecified documented in this [...] documented as of this encounter Care Teams Boat Hoist Operator Helper Relationship Specialty Start Date End Date Gisele Rodriguez FNP [address] [place] [id number] PCP - General Family Medicine 08/16/22 documented as of this encounter
--- OUTSIDE RECORDS SUMMARY | 2025-06-16 11:46 | XMS_ITS | Encounter Summary ---
Author Organization [employer] Address [address] [facility] 7t [place] [address] Care Team Providers Care Storage Administrator Name Role Phone Gisele Rodriguez CERTIFIED [facility] OPERATOR Primary Care Provider [phone] Encounter Details Date Type Department Care Team ([facility] st Contact Info) Description 06/08/2023 Abstract [facility] [address] [place], [place] [phone] Amelia Reyes Social History Tobacco Use Types [...] Description 09/04/2025 10:00 AM EST Office Visit [facility] [address] [place] [address] [place] [facility] [address] [place] [address] 10/07/2025 9:00 AM EDT Office Visit [facility] [address] [place] [address] Bernard, Kinga, OD [address] [place] [address] documented as of this encounter Visit Diagnoses Not on filedocumented in this encounter Additional Health Concerns Assessment Noted Time PHQ-9 Depression Total Score: 0 04/18/20 10:13 AM EDT documented as of this encounter Care Teams Storage Administrator Relationship Specialty Start Date End Date Gisele Rodriguez [facility] [address] [place] [address] PCP - General Family Medicine 08/16/22 documented as of this encounter
--- OUTSIDE RECORDS SUMMARY | 2025-06-16 11:46 | XMS_ITS | Encounter Summary ---
Author Organization [employer] Address [address] [facility] 7t [place] [address] Care Team Providers Care Meat Slicer Name Role Phone Gisele Rodriguez SERVICE ESTABLISHMENT ATTENDANT Primary Care Provider [phone] Encounter Details Date Type Department Care Team ([facility] st Contact Info) Description 11/18/2024 Orders Only [facility] [address] [place], [place] [phone] Amelia Reyes Social History Tobacco Use Types [...] Description 09/04/2025 10:00 AM EST Office Visit [facility] [address] [place] [address] [place], [place], [facility] [address] [place] [address] 10/07/2025 9:00 AM EDT Office Visit [facility] [address] [place] [address] Bernard, Kinga, OD 230 [place] [address] documented as of this encounter Procedures Procedure Name Priority Date/Time Associated Diagnosis Comments HPV MRNA E6/E7 REFLEX TO HPV 16, 18/45 Routine 06/16/2024 12:00 AM EST documented in this encounter Results * (ABNORMAL) HPV mRNA E6/E7 w/Reflex to HPV Genotypes 16, 18/45 (06/16/2024 12:00 AM EST) us Historical Provider LAB CYTOLOGY ORDERABLES F inal Result [facility] [address] [place] [address] [phone] documented in this encounter Visit Diagnoses Not on filedocumented in this encounter Additional Health Concerns Assessment Noted Time PHQ-9 Depression Total Score: 0 07/07/20 24 9:44 AM EST documented as of this encounter Care Teams Meat Slicer Relationship Specialty Start Date End Date Gisele Rodriguez FNP [address] [place] [address] PCP - General Family Medicine 08/16/22 documented as of this encounter
--- OUTSIDE RECORDS SUMMARY | 2025-06-16 11:46 | XMS_ITS | Encounter Summary ---
Author Organization [employer] Address [address] [facility] 7 [place] [address] Care Team Providers Care Diamond Setter Name Role Phone [facility] Primary Care Provider [phone] Encounter Details Date Type Department Care Team ([facility] Contact Info) Description 06/15/2025 Telephone [facility] 230 [place], [place] [phone] [facility] 230 [place], [place] [phone] Social History Tobacco Use Types Packs/Day Years [...] encounter Miscellaneous Notes * Telephone Encounter - Ping Bourgeois LPN - 06/15/2025 2:33 PM EST TC to pt using offset press operator Arlin Andersen regarding T spot order not drawn. Pt reports that she will be in tomorrow to complete lab work necessary for [facility] program application. documented in this encounter Plan of Treatment Upcoming Encounters Date Type Department Care Team (Late st Contact Info) Description 09/04/2025 10:00 AM EST Office Visit [facility] [address] [place] [address] Gisele Rodriguez FNP [address] [place] [address] 10/07/2025 9:00 AM EDT Office Visit [facility] [address] [place] [address] Kinga Wagner, OD [address] [place] [address] documented as of this encounter Goals Goal [...] Care Plan Weekly blood pressure task No MichaelGisele luke [facility] Patient has chronic kidney disease Care Plan Patient has chronic kidney disease No MichaelGisele luke [facility] Patient has chronic kidney disease Care Plan Patient has chronic kidney disease No Gisele Rodriguez [facility] Weekly blood pressure task Care Plan Weekly blood pressure task No Jamie-Re yes, OMAR Farrar Weekly blood pressure task Care Plan Weekly blood pressure task No Jamie-Sofia yesLeni [place] Patient has chronic kidney disease Care Plan Patient has chronic kidney disease No Jamie-Re yesLeni [place] Patient has chronic kidney disease Care Plan Patient has chronic kidney disease No Jamie-Re yesLeni [place] Weekly blood pressure task Care Plan [...] chronic kidney disease No Gisele Rodriguez FNP Weekly blood pressure task Care Plan Weekly blood pressure task No Ping Bourgeois LPN Weekly blood pressure task Care Plan Weekly blood pressure task No Ping Bourgeois LPN Patient has chronic kidney disease Care Plan Patient has chronic kidney disease No Ping Bourgeois LPN Patient has chronic kidney disease Care Plan Patient has chronic kidney disease No Ping Bourgeois LPN documented as of this encounter Visit Diagnoses Not on filedocumented in this encounter Additional Health Concerns Active [...] kidney disease 06/10/2025 Weekly blood pressure task 06/15/2025 Weekly blood pressure task 06/15/2025 Patient has chronic kidney disease 06/15/2025 Patient has chronic kidney disease 06/15/2025 Assessment Noted Time PHQ-9 Depression Total Score: 0 06/05/20 10:08 AM EST documented as of this encounter Care Teams Diamond Setter Relationship Specialty Start Date End Date Gisele Rodriguez FNP [address] [place] [id number] PCP - General Family Medicine 08/16/22 documented as of this encounter
--- OUTSIDE RECORDS SUMMARY | 2025-06-16 11:47 | XMS_ITS | Encounter Summary ---
Author Organization [employer] [facility] Address [address] [place] [address] [address], [place] [address] Care Team Providers Care Slag Motor Operator Name Role Phone Julisa Klein MD Primary Care Provider Angélica [facility] Primary Care Provider [phone] Encounter Details Date Type Department Care Team (Latest Contact Info) Description 05/29/2019 Abstract [facility] Dental, Provider, DDS Social History [...] Description 09/04/2025 10:00 AM EST Office Visit [facility] [address] [place] [address] [facility] [address] [place] [address] 10/07/2025 9:00 AM EDT Office Visit [facility] [address] [place] [address] Bernard, Kinga, OD 230 [place] [address] documented as of this encounter Visit Diagnoses Not on filedocumented in this encounter Care Teams Slag Motor Operator Relationship Specialty Start Date End Date Julisa Klein MD PCP - General Family Medicine 06/25/19 08/15/22 [place] FNP [address] [place] [id number] PCP - General Family Medicine 08/16/22 documented as of this encounter
--- OUTSIDE RECORDS SUMMARY | 2025-06-16 11:47 | XMS_ITS | Clinical Summary ---
Author Organization [employer] Address [address] [place] [address] 7 [place] [address] Care Team Providers Care Trade Show Manager Name Role Phone Gisele Rodriguez [facility] Primary Care Provider [phone] Allergies Active Allergy Reactions Criticality Noted Date Comments Lisinopril Cough 08/21/2018 Penicillin V 08/04/2010 Other reaction(s): unspecified Medications albuterol 108 (90 Base) MCG/ACT inhalerIndicatio ns:Shortness of breath Inhale 2 puffs every 6 (six) hours if needed for wheezing. 18 g 11 023 Active Alcohol Swabs (Alcohol Prep) padsIndications: Type 2 diabetes mellitus without complication, without long-term current use of insulin (HCC) Use one pad each to prep skin prior to injection as directed 100 each 11 023 Active Lancets 33G miscIndications: Type 2 diabetes mellitus without complication, without long-term current use of insulin (HCC) Use as directed to check blood sugar four times daily 100 each 3 023 Active Blood Glucose Monitoring Suppl (GNP Easy Touch Glucose Meter) deviceIndication s:Type 2 diabetes mellitus without complication, without long-term current use of insulin (HCC) Use as directed to check blood sugar four times daily 1 each 023 Active glucose blood test stripIndications :Type 2 diabetes mellitus without complication, without long-term current use of insulin (HCC) Use as directed to check blood sugar four times daily 100 each 12 023 Active Diclofenac Sodium 1 % gelIndications:P ain APPLY 2 GRAMS TOPICALLY TO AFFECTED AREA(S) FOUR TIMES DAILY DIRECTED 100 g 1 024 Active omeprazole (PriLOSEC) [address] capsuleIndicatio ns:Type 2 diabetes mellitus without complication, without long-term current use of insulin (HCC) Take 1 capsule (20 mg) by mouth Once per day. 30 capsule 024 Active fluticasone (Flonase) 50 MCG/ACT nasal sprayIndications :Allergic rhinitis, unspecified seasonality, unspecified trigger Administer 2 sprays into each nostril Once per day. Shake gently. Before first use, prime pump. After use, clean tip and replace cap. 48 g 024 Active clotrimazole (Lotrimin) 1 % creamIndications :Tinea pedis of left foot APPLY TOPICALLY TO THE AFFECTED AREA(S) TWICE DAILY DIRECTED 15 g 1 024 Active metFORMIN (Glucophage) 500 MG tablet TAKE 1 TABLET BY MOUTH TWICE DAILY IN THE MORNING AND IN THE EVENING WITH MEALS 180 tablet 3 025 Active amLODIPine (Norvasc) 5 MG tabletIndication s:Essential hypertension TAKE 1 TABLET BY MOUTH EVERY DAY 90 tablet 3 025 Active meloxicam (Mobic) 7.5 MG tabletIndication s:Chronic pain of both knees TAKE 1 TABLET BY MOUTH EVERY DAY IN THE MORNING, AND TAKE 1 ADDITIONAL TABLET NEEDED FOR PAIN, DO NOT EXCEED 2 TABLETS / 24 HOURS 30 tablet 3 025 Active fexofenadine (Kendal) 60 MG tabletIndication s:Allergic rhinitis, unspecified seasonality, unspecified trigger TAKE 1 TABLET BY MOUTH TWICE DAILY 180 tablet 1 025 Active D3 Super Strength 50 MCG (2000 UT) capsule TAKE 1 CAPSULE BY MOUTH EVERY DAY 90 capsule 1 025 Active Tirzepatide (Mounjaro) 5 MG/0.5ML solution auto-injectorInd ications:Type 2 diabetes mellitus with hyperglycemia, without long-term current use of insulin (HCC) Inject 5 mg under the skin 1 (one) time per week. 2 mL 3 025 Active clotrimazole (Lotrimin) 1 % creamIndications :Tinea pedis of left foot Apply topically 2 times daily for 28 days. 30 g 5 06/08/20 25 9:09 AM EST 025 2024 Active atorvastatin (Lipitor) 80 MG tabletIndication s:Mixed hyperlipidemia Take 1 tablet (80 mg) by mouth Once per day. 90 tablet 3 025 Active sertraline (Zoloft) 50 MG tabletIndication s:Anxiety TAKE 1 TABLET BY MOUTH EVERY DAY 30 tablet 11 025 Active sertraline (Zoloft) 50 MG tabletIndication s:Anxiety Take 1 tablet (50 mg) by mouth Once per day. 30 tablet 11 024 2024 Discontinued(R eorder (will not trigger notification to Pharmacy)) D3 Super Strength 50 MCG (2000 UT) capsule TAKE 1 CAPSULE BY MOUTH EVERY DAY 90 capsule 1 025 2024 Discontinued atorvastatin (Lipitor) 40 MG tabletIndication s:Mixed hyperlipidemia TAKE 1 TABLET BY MOUTH EVERY DAY 90 tablet 1 025 2024 Discontinued(R eorder (will not trigger notification to Pharmacy)) Mounjaro 2.5 MG/0.5ML solution auto-injectorInd ications:Type 2 diabetes mellitus with hyperglycemia, without long-term current use of insulin (HCC) INJECT ONE PEN (=2.5MG) SUBCUTANEOUSLY ONCE A WEEK DIRECTED 2 mL 2 025 2024 Discontinued Active Problems Problem Noted Date [...] HPV neg 05/2023 Repeat due 03/2024 C-scope: 2, q. 3 years d/t polyp BMD: Routine age 65 Eye Exam: 2022 with [facility] Assessment & Plan (08/03/2023 9:35 [...] medication. Not working with a therapist Declines BH referral at this time Will continue to monitor sx Contact HC if sx worsen or experiencing thoughts of SI or self harm. Pt has N crisis contact information Allergic rhinitis 07/30/2012 Assessment & Plan (08/25/2022 6:17 AM EST): - continue current medications per PCP Anxiety 05/28/2012 Overview (11/01/2023): Establshed with therapist Obesity 05/28/2012 Encounters Date Type Department Care Team Description 06/15/2025 Telephone [facility] [place] [address] Gisele Rodriguez FNP 06/11/2025 Refill [facility] [place] [address] Gisele Rodriguez FNP Anxiety 06/10/2025 2:45 PM EST Office Visit [facility] [place] [address] Allison Becker FNP Well adult exam (Primary Dx); Elevated blood pressure reading in office with diagnosis of hypertension 06/10/2025 Travel 06/10/2025 Results Follow-Up [facility] [place] [address] Gisele Rodriguez FNP POCT Glucose, POCT Hgb A1c, Lipid Panel, Standard, Albumin, Random Urine W/Creatinine 06/10/2025 Telephone [facility] [place] [address] Yesenia Borjas RN Lab Orders 06/09/2025 Telephone [facility] [place] [address] Gisele Rodriguez FNP CHARTPREP 06/08/2025 Orders Only [facility] [place] [address] Gisele Rodriguez FNP 06/08/2025 Telephone [facility] [place] [address] Gisele Rodriguez FNP DME shower chair 06/05/2025 10:00 AM EST Office Visit [facility] [place] [address] Gisele Rodriguez FNP Type 2 diabetes mellitus with hyperglycemia, without long-term current use of insulin (HCC) (Primary Dx); Bilateral primary osteoarthritis of knee; Tinea pedis of left foot 06/05/2025 Travel 06/04/2025 Telephone [facility] [place] [address] Gisele Rodriguez FNP chart prep 06/03/2025 Travel 05/29/2025 Patient Outreach [facility] MED & PEDS [address] [place], [place] [phone] [facility] Pre-visit Planning (SDOH was already completed) 05/29/2025 Travel 05/19/2025 Refill [facility] MEDICINE [address] [place] [address] [facility] 05/18/2025 Telephone [facility] MEDICINE [address] [place] [address] [facility] 05/18/2025 Telephone [facility] MEDICINE [address] [place] [address] [facility] Appointment Request 05/15/2025 Refill [facility] MEDICINE [address] [place] [address] [facility] Type 2 diabetes mellitus with hyperglycemia, without long-term current use of insulin ([facility]) 04/27/2025 Refill [facility] MEDICINE [address] [place], [place] [phone] [facility] Allergic rhinitis, unspecified seasonality, unspecified trigger from Last 3 Months Immunizations Immunization Administration [...] Sign Reading Time Taken Comments Blood Pressure 140/80 06/10/2025 2:58 PM EST Pulse 77 06/10/2025 2:58 PM EST Temperature 37.3 C (99.1 F) 06/10/2025 2:58 PM EST Respiratory Rate 20 06/10/2025 2:58 PM EST Oxygen Saturation 98% 06/10/2025 2:58 PM EST Inhaled Oxygen Concentration - - Weight 82.2 kg (181 lb 3.2 oz) 06/10/2025 2:58 P M EST Height 157.5 cm (5' 2 ) 06/10/2025 2:58 PM EST Body Mass Index 33.14 06/10/2025 2:58 PM EST Plan of Treatment Upcoming Encounters Date Type Department Care Team (Late st Contact Info) Description 09/04/2025 10:00 AM EST Office Visit [facility] MEDICINE [address] [place] [address] Michael, Gisele, FRAUD MANAGER [address] [place] [address] 10/07/2025 9:00 AM EDT Office Visit [facility] OPTOMETRY [address] [place] [address] Bernard, Kinga, OD [address] [place] [address] Health Maintenance Due Date Last Done Comments CT Colonography 1965 Dental Oral Exam 1965 Dental Prophylaxis 1965 FIT DNA/Cologuard 1965 FIT 1965 FOBT 1965 Sigmoidoscopy 1965 Hepatitis B Vaccines (3 of 3 - Risk 3-dose series) 11/21/2010 09/26/2010, 11/30/2009 Dental X-Ray: Bitewings 08/29/2023 08/28/2022 Colonoscopy 04/14/2025 04/14/2022, 07/2021, 01/09/2022 Colorectal Cancer Screening 04/14/2025 HPV/Cotest 06/16/2025 06/16/2024, 09/2022, 04/21/2022, Additional history exists Mammogram 08/18/2025 08/18/2024, 12/0 02/2021, 05/31/2018 Dental X-Ray: Full Mouth 08/29/2025 08/28/2022, 08/2021 Cervical Cancer Screening 09/17/2025 Pap Smear 09/17/2025 06/16/2024, 11/0 09/2022, 04/21/2022 Diabetes: Hemoglobin A1C 12/03/2025 025, 03/02/2025, 07/07/2024, Additional history exists SDOH Screening 01/02/2026 01/02/2025 Influenza Vaccine (#1) 2026 8, 06/23/2016, 06/23/2015, Additional history exists Postponed from 03/23/2025 (Patient Refused) Alcohol/Substance Use Screening 06/05/2026 06/05/2025 Depression Screening 06/05/2026 06/05/2025, 06/05/20 Diabetes: Foot Exam 06/05/2026 06/05/2025, 06/05/2025, 06/05/2025, Additional history exists Diabetes: Urine Protein Screening 06/08/2026 06/08/2025, 07/07/2024, 04/15/2020 Lipid Panel 06/08/2026 06/08/2025, 06/22, 02/05/2023, Additional history exists COVID-19 Vaccine () 06/10/2026 08/03/2021, 11/22/2020, 10/25/2020 Postponed from 03/23/2025 (Patient Refused) Disability Screening 06/10/2026 06/10/2025 Hepatitis A Vaccines (1 of 2 - Risk 2-dose series) 06/10/2026 Postponed from 01/19/1984 (Patient Refused) RSV Patients and Patients Aged 60 years or older (1 - Risk 50-74 years 1-dose series) 06/10/2026 Postponed from 2015 (Patient Refused) Tobacco Screening 06/10/2026 06/10/2025 Eye Exam 09/17/2026 09/17/2024, 08/24, 09/17/2024, Additional [...] on patient's age to complete this topic Goals Goal Patient Goal Type Associated Problems [...] Care Plan Weekly blood pressure task No MoroGisele luke [facility] Patient has chronic kidney disease Care Plan Patient has chronic kidney disease No MichaelGisele luke [facility] Patient has chronic kidney disease Care Plan Patient has chronic kidney disease No Gisele Rodriguez [facility] Weekly blood pressure task Care Plan Weekly blood pressure task No Jamie-Sofia yesLeni [place] Weekly blood pressure task Care Plan Weekly blood pressure task No Jamie-Sofia yesLeni [place] Patient has chronic kidney disease Care Plan Patient has chronic kidney disease No Jamie-Sofia yesLeni [place] Patient has chronic kidney disease Care Plan Patient has chronic kidney disease No Jamie-Sofia yesLeni [place] Weekly blood pressure task Care [...] Care Plan Weekly blood pressure task No TreyoNicke, FRAUD MANAGER Patient has chronic kidney disease Care Plan Patient has chronic kidney disease No Nick Beckere, FRAUD MANAGER Patient has chronic kidney disease Care Plan [...] Care Plan Weekly blood pressure task No MoroGisele luke [facility] Weekly blood pressure task Care Plan Weekly blood pressure task No MoroGisele [facility] Patient has chronic kidney disease Care Plan Patient has chronic kidney disease No MoroGisele [facility] Patient has chronic kidney disease Care Plan Patient has chronic kidney disease No MoroGisele luke FRAUD MANAGER Weekly blood pressure task Care Plan Weekly blood pressure task No Ping Bourgeois LPN Weekly blood pressure task Care Plan Weekly blood pressure task No Ping Bourgeois LPN Patient has chronic kidney disease Care Plan Patient has chronic kidney disease No Ping Bourgeois LPN Patient has chronic kidney disease Care Plan Patient has chronic kidney disease No Ping Bourgeois LPN Procedures Procedure Name Priority Date/Time Associated Diagnosis Comments TSH W/REFLEX TO FT4 Routine 06/08/2025 8 :52 AM EST ALBUMIN, RANDOM URINE W/CREATININE Routine 06/08/2025 8:52 AM EST Type 2 diabetes mellitus with hyperglycemia, without long-term current use of insulin (HCC) LIPID PANEL, STANDARD Routine 06/08/2025 8:52 AM EST Type 2 diabetes mellitus with hyperglycemia, without long-term current use of insulin (HCC) POCT GLYCATED HEMOGLOBIN, TOTAL Routine 06/05/2025 10:11 AM EST Type 2 diabetes mellitus with hyperglycemia, without long-term current use of insulin (HCC) POCT GLUCOSE Routine 06/05/2025 10:08 AM EST Type 2 diabetes mellitus with hyperglycemia, without long-term current use of insulin (HCC) BI MAMMOGRAM SCREENING TOMOSYNTHESIS BILATERAL Routine 08/18/2024 3:35 PM EST Encounter for screening mammogram for breast cancer PAP SMEAR Routine 06/16/2024 9:15 AM EST [...] Recently Relevant to Health Maintenance Results * TSH with Reflex to Free T4 (06/08/2025 8:52 AM EST) TSH reflex Free T4 2.22 0.32 - 4.0 uIU/mL [facility] 06/08/2025 8:52 AM EST 06/08/2025 12:14 PM EST [facility] FRAUD MANAGER LAB BLOOD ORDERABLES Final Re sult [facility] [address] [place] [address] [place] [address] [phone] * Albumin, Random Urine W/Creatinine (06/08/2025 8:52 AM EST) Creatinine, Urine 252.66 mg/dL [facility] Microalbumin Urine 41.0 mg/L [facility] Microalbum Creatinine Ratio Ur 16.2 <30 ug/mg cr [facility] Comment:Albumin/Creatinine R atio Reference Ranges: Normal: < 30 ug/mg creatinine Microalbuminuria: 30 - 300 ug/mg creatinineClinical Albuminuria: > 300 ug/mg creatinine Urine 06/08/2025 8:52 AM EST 06/08/2025 11:33 AM EST [facility] LAB URINE ORDERABLES Final Re sult [facility] [address] [place] [phone] * (ABNORMAL) Lipid Panel, Standard (06/08/2025 8:52 AM EST) Triglycerides 129 <150 mg/dL [facility] Comment:Desirable Triglyceri de: less than 150 mg/dLBorderline High Triglyceride 150-199 mg/dLHigh Triglyceride: 200-499 mg/dLVery High Triglyceride: greater than or equal to 5OO mg/dL Cholesterol 182 <200 mg/dL [facility] Comment:Desirable Cholestero l: less than 200 mg/dLBorderline High Cholesterol: 200-239 mg/dLHigh Cholesterol: greater than 239 mg/dL LDL Cholesterol Calculated 114(H) <100 mg/dL [facility] Comment:Desirable LDL: less than 100 mg/dLNear Optimal/Above Optimal LDL: 110- 129 mg/dLBorderline High LDL: 130-159 mg/dLHigh LDL: 160-189 mg/dLVery High LDL: greater than or equal to 190 mg/dL HDL Cholesterol 43 >40 mg/dL [facility] Comment:Desirable HDL: great er than 40 mg/dL Note: This HDL assay may give artificially low results in patients with liver disease. Blood Venous blood specimen / Unknown 06/08/2025 8:52 AM EST 06/08/2025 12:14 PM EST Result [facility] LAB BLOOD ORDERABLES Final Re sult [facility] [address] [place] [address] [phone] * (ABNORMAL) POCT Hgb A1c (06/05/2025 10:11 AM EST) Hemoglobin A1C 5.8(A) 4.0 - 5.7 % Blood 06/05/2025 10:1 1 AM EST Result [facility] POINT OF CARE TEST ENTER/EDIT ORDERABLES Final Result * POCT Glucose (06/05/2025 10:08 AM EST) Glucose Blood, POC 95 60 - 200 mg/dL QC Media Lot # [id number] Lot# Expiration Date Blood Capillary blood specimen / Unknown 06/05/2025 10:08 AM EST Result [facility] POINT OF CARE TEST ENTER/EDIT ORDERABLES Final Result * BI Mammogram Screening Tomosynthesis Bilateral (08/18/2024 3:35 PM EST) Anatomical Region Laterality Modality Breast Bilateral Mammography 08/18/2024 3:35 PM EST Narrative 08/27/2024 12:34 PM EST [facility] [address] [place] [address] Mammography Report Signed Patient: Mary Redding MR#: [id number] : 1965 Acct:[id number] Age/Sex: 59 / F ADM Date: 08/18/24 Loc: KAYLYNO Attending Dr: Gisele LEONGP Ordering Physician: Gisele Rodriguez Results: 1Nega tive Date of Service: 08/18/24 Follow Up: 1 Year From Orig inal Mammogram Procedure(s): MM tomosynthesis screening BI Accession Number(s): [id number] cc: Gisele Rodriguez FRAUD MANAGER EXAMINATION: MM SCREENING DIGITAL BREAST TOMOSYNTHESIS, [...] by: Dannielle White DO 08/27/2024 12:29 PM [facility] Dictated By: Dannielle White DO Signed By: <Electronically signed by Dannielle White DO in OV> 08/27/24 1229 DD/ 1535 TD/TT: 08/18/24 1554 Client Onboarding Analyst: Procedure Note Donotuseinterpreter, Image - 08/27/2024 [facility] [address] [place] [address] Dr. [place], [place] [address] Mammography Report Signed Patient: Mary Redding#: [id number] : 1965Acct:[id number] Age/Sex: 59 / FADM Date: 08/18/24 Loc: BIB Attending Dr: Gisele Rodriguez FRAUD MANAGER Ordering Physician: Gisele Rodriguez FNPResults: 1Nega tive Date of Service: 08/18/24Follow Up: 1 Year From Orig inal Mammogram Procedure(s): MM tomosynthesis screening BI Accession Number(s): [id number] cc: [place] FRAUD MANAGER EXAMINATION: MM SCREENING DIGITAL BREAST TOMOSYNTHESIS, [...] 08/27/24 1229 DD/ 1535 TD/TT: 08/18/24 1554 Client Onboarding Analyst: [facility] FRAUD MANAGER IMG BI PROCEDURES Edited Resu lt - Final * Pap Smear (06/16/2024 9:15 AM EST) Swab Cervix uteri structure / Unknown 06/16/2024 9:15 AM EST 06/16/2024 2:15 PM EST [facility] - 06/25/2024 11:08 AM EST ----- ------- Name: Mary Redding Age/Sex: 59/F : 1965 Unit#: [id number] Attend Dr: Re06/16/24 Status: PRE REF Location: [facility] Disch: ----- ------- SPEC : [id number] RECD: 06/16/24 STATUS: SUSANNAH VICENTE NUM: [id number] ASHLYN: 06/16/[address]: Gisele Rodriguez FRAUD MANAGER ENTERED: 06/16/24 SP TYPE: Pap Smr OSMIN DR: ORDERED: Pap Smear, PAP path review Interpretation [...] 06/25/24 1108 ----- ------- END OF REPORT [facility] LAB CYTOLOGY ORDERABLES Final Result Performing Organization Address [facility]/ZIP Co de Phone Number [facility] [address] [place] [phone] * (ABNORMAL) HPV mRNA E6/E7 w/Reflex to HPV Genotypes 16, 18/45 (06/16/2024 12:00 AM EST) [facility] Provider MD LAB CYTOLOGY ORDERABLES F inal Result Performing Organization Address [facility] Co de Phone Number [facility] [address] [place] [address] [phone] * Hepatitis Panel, General (02/14/2023 8:54 AM EDT) Pathologist [facility] Hepatitis A IgM Nonreactive Nonreactive [facility] Comment:IgM antibodies to CALLAHAN V not detected; does not exclude earlyacute or recovered HAV infection. ~Hepatitis B Surface Antibody GRAYZONE Nonreactive [facility] Comment:GRAYZONE: 8.00 mIU/m L TO 11.99 mIU/mLTHE IMMUNE STATUS OF THE INDIVIDUAL SHOULD BE FURTHERASSESSED BY CONSIDERING OTHER FACTORS, SUCH CLINICALSTATUS, FOLLOW-UP TESTING, ASSOCIATED RISK FACTORS, AND THEUSE OF ADDITIONAL DIAGNOSTIC INFORMATION. Hepatitis B Core Antibody Nonreactive Nonreactive [facility] Hepatitis C Antibody Nonreactive Nonreactive [facility] Comment:Antibodies to HCV no t detected; does not exclude early acuteHCV infection. Hepatitis B Surface Ag Negative Negative [facility] Blood 02/14/2023 8:54 AM EDT 02/14/2023 11:21 AM EDT [facility] LAB BLOOD ORDERABLES Final Re sult Performing Organization Address [facility] Co de Phone Number [facility] [address] [place] [phone] * HIV-1 RNA, Quantitative, Real-Time PCR (02/05/2023 8:41 AM EDT) [facility] HIV RNA PCR Qn Copies NOT DETECTED NOT DETECTED copies/mL [facility] HIV RNA PCR Qn Log Copies NOT DETECTED NOT DETECTED [facility] Comment:Result Units: Log co pies/mLThis test was performed using Real-Time Polymerase ChainReaction.Reportable Range: 20 copies/mL to 10,000,000 copies/mL(1.30 log copies/mL to 7.00 log copies/mL).THIS TEST WAS PERFORMED AT:[facility] [employer] [place] [phone] DRAPER MD 02/05/2023 8:41 AM EDT 02/05/2023 11:44 AM EDT [facility] LAB BLOOD ORDERABLES Final Re sult [facility] [address] [place] [address] [phone] * (ABNORMAL) Colonoscopy (03/23/2022) Colonoscopy Abnormal(A ) Normal Historical Provider HEALTH MAINTENANCE Final Result from Last 3 Months or Most Recently Relevant to Health Maintenance Additional Health Concerns Active Problems Noted Date [...] 06/15/2025 Patient has chronic kidney disease 06/15/2025 Insurance [facility] C3 DENT[facility] MEDICAID STAND ADULT Care Teams Trade Show Manager Relationship Specialty Start Date End Date Gisele Rodriguez FNP [address] [place] [phone] PCP - General Family Medicine 08/16/22
--- OUTSIDE RECORDS SUMMARY | 2025-06-16 11:47 | XMS_ITS | Encounter Summary ---
Author Organization [employer] [facility] Address [address] [place] [address] [place], [place] [address] Care Team Providers Care Field Adjuster Name Role Phone Julisa Klein MD Primary Care Provider Angélica [facility] Primary Care Provider [phone] Encounter Details Date Type Department Care Team (Latest Contact Info) Description 12/14/2021 Abstract [facility] CONVERSIONS Dental, Provider, DDS Social History [...] Description 09/04/2025 10:00 AM EST Office Visit [facility] MEDICINE [address] [place] [address] [facility] [address] [place] [address] 10/07/2025 9:00 AM EDT Office Visit [facility] OPTOMETRY [address] [place] [address] Bernard, Kinga, OD [address] [place] [address] documented as of this encounter Visit Diagnoses Not on filedocumented in this encounter Care Teams Field Adjuster Relationship Specialty Start Date End Date Julisa Klein MD PCP - General Family Medicine 06/25/19 08/15/22 [place] [address] [place] [phone] PCP - General Family Medicine 08/16/22 documented as of this encounter
--- OUTSIDE RECORDS SUMMARY | 2025-06-16 11:47 | XMS_ITS | Encounter Summary ---
Author Organization [employer] Address [address] [facility] [address] [place] [address] Care Team Providers Care Fiscal Technician Name Role Phone Gisele Rodriguez PRICING LEAD Primary Care Provider [phone] Encounter Details Date Type Department Care Team ([facility] st Contact Info) Description 09/23/2024 Orders Only [facility] [address] [place], [place] [id number] Amelia Reyes Social History Tobacco Use Types [...] Description 09/04/2025 10:00 AM EST Office Visit [facility] MEDICINE [address] [place] [address] [place], [place], [facility] [address] [place] [address] 10/07/2025 9:00 AM EDT Office Visit [facility] OPTOMETRY [address] [place] [address] [place], [place], OD [address] [place] [address] documented as of this encounter Procedures Procedure Name Priority Date/Time Associated Diagnosis Comments COLPOSCOPY Routine 09/17/2024 12:00 AM EST documented in this encounter Results * Colposcopy (09/17/2024 12:00 AM EST) us Historical Provider MD IN CLINIC/BEDSIDE ORDERAB LES Final Result [facility] [address] [place] [address] [phone] documented in this encounter Visit Diagnoses Not on filedocumented in this encounter Additional Health Concerns Assessment Noted Time PHQ-9 Depression Total Score: 0 07/07/20 24 9:44 AM EST documented as of this encounter Care Teams Fiscal Technician Relationship Specialty Start Date End Date Gisele Rodriguez FNP [address] [place] [id number] PCP - General Family Medicine 08/16/22 documented as of this encounter
[2025-06-16 12:38] LABS: HBS Num1 8.70 mIU/mL (0-7.99); HBc Num1 0.05 S/CO (0.00-0.79); HBsAGNum1 0.46 S/CO (0.00-0.99); Hepatitis B Surface Antigen Negative (Negative)
[2025-06-17 06:46] LABS: HBS Num2 8.84 mIU/mL (0-7.99); HBS Num3 9.03 mIU/mL (0-7.99); ~Hepatitis B Surface Antibody GRAYZONE (Nonreactive)
[2025-06-19 11:58] LABS: TS Negative Control Passed; TS Panel A 1; TS Panel B 0; TS Positive Control Passed; TSpotTB Negative (Negative)
== END 2025-06-16 09:55 | disposition home or self-care (01) ==
LOC: HO.HHCL 09:54
PROVIDERS: PCP Registered Nurse; Referring Provider Nurse Practitioner Family; Visit Provider Registered Nurse
DX: Z00.00 Encounter for general adult medical examination without abnormal findings (principal); Z11.1 Encounter for screening for respiratory tuberculosis; Z11.59 Encounter for screening for other viral diseases
CPT/HCPCS: 36415; 86481; 86704; 86706; 87340